=== PATIENT | male | born 1940 | race Caucasian/White ===

== ENCOUNTER 2017-08-16 09:39 | Emergency (ER) | payer MEDICARE, SELFPAY | END 2017-08-16 13:34 | disposition home or self-care (01) | PROVIDERS: Emergency Provider Emergency Medicine; Family Provider Internal Medicine; Visit Provider Emergency Medicine | DX: R10.9 Unspecified abdominal pain (principal); K57.30 Diverticulosis of large intestine without perforation or abscess without bleeding; Z87.442 Personal history of urinary calculi; Z86.73 Personal history of transient ischemic attack (TIA), and cerebral infarction without residual deficits; Z79.02 Long term (current) use of antithrombotics/antiplatelets; Z79.82 Long term (current) use of aspirin; Z79.899 Other long term (current) drug therapy; R10.31 Right lower quadrant pain | CPT/HCPCS: 74176; 80053; 81001; 83690; 85025; 87086; 87088; 87186; 96365; 96375; 99283; J2405 ==

== ENCOUNTER → 2017-10-02 08:55 | Outpatient (CLI) | payer MEDICARE, SELFPAY ==
[2017-10-02 10:14] LABS: Potassium 5.1 mmoL/L (3.5-5.1)
[2017-10-02 15:24] LABS: Anion Gap 13.2 mEq/L (5-15); Blood Urea Nitrogen 26 mg/dL (7-18); Carbon Dioxide 26 mmol/L (21.0-32.0); Chloride 109 mmol/L (98-107); Creatinine,Serum 1.39 mg/dL (0.70-1.30); Estimated Glomerular Filt Rate 50 ml/min (>60); GFR (African American) 60 ML/MIN (>60); Glucose 124 mg/dL (74-106); Potassium 5.2 mmoL/L (3.5-5.1); Sodium 143 mmol/L (136-145)
== END ==
PROVIDERS: PCP Family Medicine; Visit Provider Family Medicine
DX: E87.5 Hyperkalemia (principal); N28.9 Disorder of kidney and ureter, unspecified
CPT/HCPCS: 36415; 80048; 84132

== ENCOUNTER → 2017-10-06 12:14 | Outpatient (CLI) | payer MEDICARE, SELFPAY ==
--- NOTE | 2017-10-06 13:20 | CT_ITS ---
CT chest w con HISTORY: Shortness of air, fatigue, abnormal chest x-ray ITS.REASON: LUNG MASS SEEN ON CXR SOA, FATIGUE ORDERING PHYSICIAN: Joe Shaffer MD PATIENT AGE: 77 years TECHNIQUE: Axial images obtained following the administration of 75 mL of Isovue 370 . Sagittal, and coronal reformatted images are also generated and reviewed. COMPARISON: 04/04/2017 FINDINGS: No mediastinal or hilar mass. No adenopathy. No evidence of proximal pulmonary embolus. There is mild ectasia of the distal aspect of the aortic arch at 3.5 cm. No dissection evident. Normal heart size. No evidence of pericardial effusion. There is slight increased density involving the superior segment of the right lower lobe possibly related to postinflammatory fibrotic change with some atelectasis or fibrosis. May be in the etiology of the radiographic abnormality on the previous x-ray of 04/04/2017. 3 mm noncalcified nodule left upper lobe posteriorly nonspecific too small to categorize. No effusions or infiltrates. Upper abdominal images show diverticulosis of the hepatic flexure and transverse colon as well as splenic flexure. No acute bony anomalies. IMPRESSION: 1. Nonspecific peripheral parenchymal opacity is present in the superior segment of the right lower lobe and may be due to some postinflammatory fibrotic change. Consider 6 month follow-up to confirm resolution or stability. This may be sequela from the previously noted chest x-ray abnormality 2. No hilar or mediastinal mass or adenopathy.
--- NOTE | 2017-10-06 13:37 | HMH.ITSHM ---
PLAVIX,ZESTRIL,FLOMAX,PEPCID,ASPIRIN
== END ==
PROVIDERS: Family Provider Internal Medicine; PCP Family Medicine; Visit Provider Family Medicine
DX: R91.8 Other nonspecific abnormal finding of lung field (principal); R22.2 Localized swelling, mass and lump, trunk
CPT/HCPCS: 71260; Q9967

== ENCOUNTER → 2018-01-14 17:55 | Outpatient (REF) | payer MEDICARE, SELFPAY ==
[2018-01-14 18:13] LABS: Reticulocyte % (Auto) 1.3 % (0.9-3.2)
[2018-01-16 08:34] LABS: Iron 30 ug/dL (38-169); UIBC 308 ug/dL (111-343)
[2018-01-16 13:01] LABS: Iron Saturation 9 % (15-55)
[2018-01-16 16:25] LABS: Albumin 3.5 g/dL (2.9-4.4); Alpha-1-Globulin 0.3 g/dL (0.0-0.4); Gamma Globulin 0.7 g/dL (0.4-1.8); Protein, Total 6.4 g/dL (6.0-8.5)
== END ==
LOC: LAB 17:55
PROVIDERS: Visit Provider Internal Medicine
DX: D64.9 Anemia, unspecified (principal)
CPT/HCPCS: 83550; 84165; 85044

== ENCOUNTER → 2018-04-07 10:49 | Outpatient (CLI) | payer MEDICARE, SELFPAY ==
--- NOTE | 2018-04-07 11:01 | XR_ITS ---
XR KUB HISTORY: ITS.REASON: KIDNEY STONES ORDERING PHYSICIAN: Christopher Ann MD PATIENT AGE: 78 years COMPARISON: 08/16/2017 FINDINGS: Mild lumbar scoliosis convex right. Surgical clips in the epigastric region and to the left of the L3 transverse process. No obvious renal or ureteral calculi. Nonspecific nonobstructive bowel gas pattern. IMPRESSION: No acute finding. No renal calculi apparent
== END ==
PROVIDERS: PCP Internal Medicine; Visit Provider Urology
DX: N20.0 Calculus of kidney (principal)
CPT/HCPCS: 74018

== ENCOUNTER → 2018-07-02 13:08 | Outpatient (CLI) | payer MEDICARE, SELFPAY | PROVIDERS: PCP Internal Medicine; Visit Provider Internal Medicine | DX: M54.42 Lumbago with sciatica, left side (principal) ==

== ENCOUNTER → 2018-07-08 14:15 | Outpatient (CLI) | payer MEDICARE, SELFPAY | PROVIDERS: PCP Internal Medicine; Visit Provider Internal Medicine | DX: M54.42 Lumbago with sciatica, left side (principal) ==

== ENCOUNTER → 2018-07-09 10:47 | Outpatient (CLI) | payer MEDICARE, SELFPAY ==
--- NOTE | 2018-07-09 10:49 | MR_ITS ---
MR lumbar spine wo con, MR 3-d myelogram/MRCP HISTORY: LT leg hip pain, left side low back pain, pain when laying flat or sitting. Symptoms X6 weeks. No prior surgery ITS.REASON: LUMBAGO W/ LEFT SCIATICA ORDERING PHYSICIAN: Jamal Byrne PATIENT AGE: 78 years Comparison: X-Ray 07-20-12 TECHNIQUE: Standard multiplanar multiecho sequences are performed without contrast. 3-D MIP and myelographic images are also rendered and reviewed FINDINGS: Study is somewhat limited. 3 attempts were made to perform the exam with motion artifact noted. Best images were submitted. There is severe motion artifact. The spinal cord ends at the L1 level. There is minimal anterolisthesis of T11 on T12 2 mm. L1-L2: Unremarkable. L2-L3: Degenerative disc disease with moderate to severe facet and ligamentum flavum hypertrophy with severe bilateral lateral recess and foraminal narrowing. There is transverse canal stenosis at this level. L3-L4: Degenerative disc disease with facet and ligamentum hypertrophy with bilateral lateral recess and foraminal narrowing. L4-L5: Degenerative disc disease with 5 mm anterolisthesis of L3 with moderate sized bulging disc along with facet and ligamentum flavum hypertrophy with severe bilateral lateral recess and foraminal narrowing along with severe canal stenosis. L5-S1: Degenerative disc disease with bulging disc along with facet and ligamentum flavum hypertrophy with moderate to severe right-sided foraminal narrowing and mild bilateral lateral recess narrowing. IMPRESSION: 1. Study is limited technically due to motion artifact. 2. Multilevel lumbar spondylosis with degenerative disc disease bulging disc, and facet and ligamentum hypertrophy with foraminal lateral recess narrowing. PLEASE SEE ABOVE FOR DETAILED DESCRIPTION AT EACH LEVEL. 3. Moderate-sized bulging disc with 5 millimeters anterolisthesis of L4 with severe bilateral lateral recess, bilateral foraminal narrowing, and severe canal stenosis at L4-L5
== END ==
PROVIDERS: PCP Internal Medicine; Visit Provider Internal Medicine
DX: M54.42 Lumbago with sciatica, left side (principal)
CPT/HCPCS: 72148; 76376

== ENCOUNTER → 2018-10-13 16:50 | Outpatient (CLI) | payer MEDICARE, SELFPAY | PROVIDERS: Visit Provider Urology | DX: N20.0 Calculus of kidney (principal) | CPT/HCPCS: 87086; 87088; 87186 ==

== ENCOUNTER → 2018-10-19 14:56 | Outpatient (CLI) | payer MEDICARE, SELFPAY ==
--- NOTE | 2018-10-19 14:58 | CT_ITS ---
CT abdomen pelvis wo con INDICATION: ITS.REASON: Kidney StonesUrolithiasis. Low pelvic pain ORDERING PHYSICIAN: Christopher Ann MD PATIENT AGE: 78 years COMPARISON: August 2017 TECHNIQUE: No oral nor IV contrast utilized Axial images obtained with sagittal and coronal reformats. All CT scans at the facility use one or more dose reduction, viz: automated exposure control, ma/kV adjustment per patient size (including targeted exams where dose is matched to indication, i.e. head), or iterative reconstruction technique. FINDINGS: Lung bases. No acute findings. Heart normal size. Abdomen/pelvis. Lack of oral and IV contrast decreases sensitivity somewhat. Liver, spleen, pancreas unremarkable on this noncontrast studies . Adrenals unremarkable. . Gallbladder no calcified stones. Sludge, suggestion of possible noncalcified stone. Common duct WNL..No biliary ductal dilatation TRACT Kidneys. No urinary tract calculi nor obstruction . Mild stranding about both kidneys likely reflecting chronic renal changes. Similar to previous study 2017. . On previous 2017 CT, small calculi at the lower pole left kidney were noted.-these no longer evident.No renal calculi in either kidney today.. The left ureter is unremarkable with no calculi. No retroperitoneal adenopathy nor significant pelvic adenopathy. Pelvis. Borderline to mild thickening of the bladder. Prostate is enlarged nearly 6 cm transverse dimension with near similar height height. It slightly indents the base the bladder.. No free fluid at pelvis. I suspect prior mesh graft placed anteriorly aspect lower pelvis which may have related to previous 2014 hernia repair/including inguinal hernia repair.. Correlation required Slight bulging from both right & left inguinal ring but no hernia.. Overall appearance appears unchanged to previous 2016 &,. With no significant recurrent inguinal hernia. Only slight bulging towards inguinal regions... There is a midline suzette from previous midline incision above the umbilicus. GI TRACT Large bowel: moderate stool seen throughout large bowel. Colonic diverticulosis most extensive at the sigmoid colon with scattered diverticuli throughout the left colon and transverse colon. No focal diverticulitis. Moderate stool throughout the right colon. Appendix appears normal. Stomach: Postsurgical changes GE junction and cardia of stomach. Possibly from previous gastric surgery and/or vagotomy. Generous food mildly distended stomach. Duodenal loop satisfactory with upper normal wall thickness. The small bowel normal caliber. Slight wispy appearance of mesentery within normal limits. A few small scattered nodes mesentery. No focal inflammatory changes abdome.. No free fluid no free air Bones.. Dextroscoliosis L-spine. Multilevel Degenerative changes throughout the L-spine Period bilateral facet hypertrophy and arthropathy most evident right L4/5 L5/S1. Previous laminectomy to the left at L3/4 Sclerotic area at the T11 level unchanged. ----IMPRESSION: No acute findings abdomen pelvis. No urinary tract obstruction. No renal calculi currently. (Previous calculi noted on 2017 CT study are no longer evident. No ureteral calculi nor obstruction today). Mild diffuse bladder wall thickening with enlarged prostate--6 cm transverse. Diffuse Colonic diverticulosis. Diverticulosis extensive sigmoid, left colon. No acute diverticulitis evident Suggestion of subtle mesh graft anteriorly at lower pelvis, likely from previous 2015 hernia repair
== END ==
PROVIDERS: PCP Internal Medicine; Visit Provider Urology
DX: N20.0 Calculus of kidney (principal)
CPT/HCPCS: 74176

== ENCOUNTER 2019-04-23 10:00 | Outpatient (RCR) | payer MEDICARE, SELFPAY ==
--- NOTE | 2019-04-14 11:35 | HMH.OTOPEV ---
OT Inpatient Evaluation Rehab OT Outpatient Eval Start: 04/14/19 11:25 Freq: Status: Active Protocol: Document 04/14/19 11:25 [facility] (Rec: 04/14/19 11:35 [id number] Electronically Signed By Yrn Baxter OT 04/14/19 11:25 Outpatient Therapy Subjective History Subjective History Pt seen this date for skilled OT initial evaluation to Right shoulder. Pt reports he has had problems with his shoulder for years, but ~3 weeks ago he fell on the shoulder. Since his fall, the pain has increased and his motion/ strength has declined. Pt does demonstrate with significant weakness in the shoulder along with decreased AROM. Pt will continue to be seen twice a week in order to address deficits. Chief Complaint Pain,Stiff,Weakness Symptom Type Ache,Throb,Sharp,Dull,Shooting Symptoms Relieved By Rest/Positioning Symptoms Aggravated By Physical Activity,Twisting, Lifting Prior Functional Limitations None Current Functional Limitations Reaching,Lifting,Housework, Dressing,Desk Work/Reading, Driving,Sleeping,Recreation Activity Symptom Description Constant but Variable Level of pain today (0-10) 5 Pain scale - at its best (0-10) 2 Pain scale - at its worst (0-10) 9 Shoulder/Elbow Eval Shoulder Objective Measurements Shoulder ROM Right Shoulder ROM Limitations Pain Shoulder Abduction Active Range of 70 degrees Motion (degrees) Shoulder Flexion Active Range of Motion 120 degrees (degrees) Query Text: Shoulder External Rotation Active Range 50 degrees of Motion (degrees) Shoulder Internal Rotation Active Range 60 degrees of Motion (degrees) pain with active ROM shoulder exam right standard pain with passive ROM shoulder exam right standard decreased ROM shoulder exam standard right Shoulder MMT Shoulder Abduction Strength Grade 2 Poor Shoulder Extension Strength Grade 2 Poor Shoulder Flexion Strength Grade 2 Poor Shoulder External Rotation Strength 2 Poor Grade Shoulder Internal Rotation Strength 2 Poor Grade Shoulder Strength Patient Testing Sitting Position
== END 2019-04-23 10:05 | disposition home or self-care (01) ==
LOC: OT 10:00
PROVIDERS: PCP Internal Medicine; Visit Provider Orthopaedic Surgery
DX: M25.511 Pain in right shoulder (principal)
CPT/HCPCS: 97014; 97110; 97165; G0283

== ENCOUNTER → 2019-04-26 10:23 | Outpatient (POV) | payer MEDICARE, SELFPAY | PROVIDERS: Visit Provider Specialist | DX: R20.0 Anesthesia of skin (principal) | CPT/HCPCS: 95886; 95908 ==

== ENCOUNTER → 2019-05-11 08:39 | Outpatient (CLI) | payer MEDICARE, SELFPAY ==
--- NOTE | 2019-05-11 09:01 | ECG_ITS ---
APPROVED REPORT Exam: Resting ECG HR:66 bpm ECG Measurements Heart Rate [address] 182 P 67 QRSd 80 QRS 37 QT 372 T 58 QTc 389 <Conclusion> Normal sinus rhythm Normal ECG Electronically signed by : Anup Maldonado, 05/11/2019 19:58:06
[2019-05-11 09:10] LABS: Basophils % 0.4 % (0.1-2.0); Eosinophils # 0.1 K/mm3 (0.0-0.4); Eosinophils % 1.2 % (0.1-12.0); Hematocrit 38.8 % (42.0-52.0); Hemoglobin 12.5 g/dL (14.1-18.0); Lymphocytes # 0.9 K/mm3 (0.7-4.5); Lymphocytes % 13.4 % (10-50); Mean Corpuscular HGB Conc 32.1 g/dL (31.8-35.4); Mean Corpuscular Hemoglobin 29.9 pg (27.0-31.2); Mean Platelet Volume 6.7 fl (7.4-10.4); Monocytes # 0.4 K/mm3 (0.1-1.0); Monocytes % 5.9 % (1.7-9.3); Neutrophils # 5.4 K/mm3 (1.8-7.8); Neutrophils % 79.2 % (37.0-80.0); Platelet Count 310 K/mm3 (142-424); Red Blood Count 4.17 M/mm3 (4.60-6.20); Red Cell Distribution Width 15.1 % (11.5-17.5); White Blood Count 6.8 K/mm3 (4.8-10.8)
[2019-05-11 09:15] LABS: INR 0.97 (0.9-1.1); Prothrombin Time 10.1 seconds (9.4-11.8)
[2019-05-11 10:29] LABS: Alanine Aminotransferase 23 U/L (12-78); Albumin Level 3.9 gm/dL (3.4-5.0); Albumin/Globulin Ratio 1.4 (1.1-1.8); Alkaline Phosphatase 126 U/L (46-116); Anion Gap 14.6 mEq/L (5-15); Aspartate Amino Transferase 17 U/L (15-37); Bilirubin,Total 0.5 mg/dL (0.2-1.0); Blood Urea Nitrogen 21 mg/dL (7-18); Calcium 8.7 mg/dL (8.5-10.1); Carbon Dioxide 24 mmol/L (21.0-32.0); Chloride 108 mmol/L (98-107); Creatinine,Serum 1.72 mg/dL (0.70-1.30); Estimated Glomerular Filt Rate 39 ml/min (>60); GFR (African American) 47 ML/MIN (>60); Globulin 2.7 gm/dl (1.3-3.2); Glucose 132 mg/dL (74-106); Potassium 4.6 mmoL/L (3.5-5.1); Sodium 142 mmol/L (136-145); Total Protein,Serum 6.6 gm/dL (6.4-8.2)
== END ==
PROVIDERS: Visit Provider Orthopaedic Surgery
DX: M79.609 Pain in unspecified limb (principal); R10.9 Unspecified abdominal pain; R20.2 Paresthesia of skin; Z01.818 Encounter for other preprocedural examination
CPT/HCPCS: 36415; 80053; 85025; 85610; 93005

== ENCOUNTER → 2019-06-24 10:03 | Outpatient (CLI) | payer MEDICARE, SELFPAY ==
--- NOTE | 2019-06-24 10:05 | CT_ITS ---
PROCEDURE: CT ABDOMEN PELVIS WO CON CLINICAL INDICATION: RLQ PAIN RADIATING TO GROIN Right lower quadrant pain COMPARISON: ABDPELWO CT abdomen pelvis wo con from 10/19/2018 TECHNIQUE: Axial images obtained with sagittal and coronal reformats. All CT scans at the facility use one or more dose reduction, viz: automated exposure control, ma/kV adjustment per patient size (including targeted exams where dose is matched to indication, i.e. head), or iterative reconstruction technique. FINDINGS: Lower thorax: No acute finding ABDOMEN & PELVIS: Oral contrast was given but IV contrast was not utilized. The liver, spleen, adrenal glands, gallbladder, and kidneys have an unremarkable appearance. No renal or ureteral calculi. There are postsurgical changes of the anterior abdominal wall. There is andrade diverticulosis. No evidence of diverticulitis. The cecum is anteflexed anteriorly with the appendix residing in the right upper quadrant medial to the gallbladder. No evidence of appendicitis. No intestinal obstruction or free air. The prostate is enlarged at 6 by 4.5 cm. Unremarkable appearing urinary bladder. Degenerative changes are present in the lumbar spine with mild dextroscoliosis. Bones: No acute bony findings. IMPRESSION: 1. Andrade diverticulosis of the colon. No evidence of diverticulitis. 2. Enlarged prostate 3. No acute abdominal or pelvic findings. No evidence of appendicitis. Dictated by: Joshua Rubi MD 06/25/2019 17:15 Electronically signed by Joshua Rubi MD in [place] 06/25/2019 17:15
== END ==
PROVIDERS: PCP Internal Medicine; Visit Provider Internal Medicine
DX: R10.31 Right lower quadrant pain (principal)
CPT/HCPCS: 74176

== ENCOUNTER → 2019-08-03 15:03 | Outpatient (CLI) | payer MEDICARE, SELFPAY ==
[2019-08-05 11:18] LABS: PSA, Free 3.15 ng/mL; Prostate Specific Ag 12.2 ng/mL (0.0-4.0)
== END ==
PROVIDERS: Visit Provider Urology
DX: R97.20 Elevated prostate specific antigen [PSA]
CPT/HCPCS: 36415; 84153; 84154

== ENCOUNTER → 2019-10-25 14:57 | Outpatient (CLI) | payer MEDICARE, SELFPAY ==
[2019-10-28 06:38] LABS: PSA, Free 1.92 ng/mL; Prostate Specific Ag 7.4 ng/mL (0.0-4.0)
== END ==
PROVIDERS: Visit Provider Urology
DX: R97.20 Elevated prostate specific antigen [PSA] (principal)
CPT/HCPCS: 36415; 84153; 84154

== ENCOUNTER → 2020-01-01 09:38 | Outpatient (CLI) | payer MEDICARE, SELFPAY ==
[2020-01-01 11:10] LABS: Blood Urea Nitrogen 33 mg/dl (9-20); Estimated Glomerular Filt Rate 28 ml/min (>60); GFR (African American) 33 ML/MIN (>60)
== END ==
PROVIDERS: Visit Provider Surgery
DX: R10.31 Right lower quadrant pain (principal)
CPT/HCPCS: 36415; 82565; 84520

== ENCOUNTER → 2020-01-05 09:07 | Outpatient (CLI) | payer MEDICARE, SELFPAY ==
--- NOTE | 2020-01-05 09:13 | CT_ITS ---
PROCEDURE: CT ABDOMEN PELVIS WO CON CLINICAL INDICATION: prevous hernia sx 2015, rt groin pain Right groin pain COMPARISON: CT ABDOMEN PELVIS WO CON from 06/24/2019 TECHNIQUE: Axial images obtained with sagittal and coronal reformats. All CT scans at the facility use one or more dose reduction, viz: automated exposure control, ma/kV adjustment per patient size (including targeted exams where dose is matched to indication, i.e. head), or iterative reconstruction technique. FINDINGS: LOWER THORAX: No acute finding ABDOMEN & PELVIS: The liver, gallbladder, spleen, adrenal glands, and pancreas have an unremarkable unenhanced appearance. There are multiple small metallic densities at the GE junction area. No renal or ureteral calculi. No hydronephrosis. There is nonspecific stranding of the perinephric renal fat. No intestinal obstruction or free air. No evidence of appendicitis. There is colonic diverticulosis without diverticulitis. The prostate is enlarged at 5 cm. There is mild concentric thickening of the urinary bladder wall. Postsurgical changes are present in the pelvis with thin linear density along the lower anterior abdominal wall and may be due to previously inserted mesh. Please correlate with surgical history. No evidence of recurrence hernia. No significant change from 06/24/2019. There are degenerative changes in the lumbar spine with dextroscoliosis and mild degenerative changes of the right SI joint. IMPRESSION: 1. No acute abdominal or pelvic findings. 2. Prior abdominal wall surgery. No evidence recurrence inguinal hernia. 3. Enlarged prostate with mild concentric thickening of the urinary bladder wall which could be due to nondistention and or cystitis. Dictated by: Joshua Rubi MD 01/06/2020 08:41 Electronically signed by Joshua Rubi MD in [place] 01/06/2020 08:41
== END ==
PROVIDERS: PCP Internal Medicine; Visit Provider Surgery
DX: R10.31 Right lower quadrant pain (principal)
CPT/HCPCS: 74176

== ENCOUNTER → 2020-01-27 11:10 | Outpatient (POV) | payer MEDICARE, SELFPAY ==
[2020-01-27 11:31] VITALS: BP 135/85; PULSE 80; RESP 18; TEMP 36.9; O2SAT 99; BMI 21.2
--- NOTE | 2020-01-27 12:30 | HMH.PMCON ---
Assessment and Plan (1) Right groin pain Current visit: Yes Status: Chronic Category: Medical Code(s): R10.31 - Right lower quadrant pain (2) Left groin pain Current visit: Yes Status: Chronic Category: Medical Code(s): R10.32 - Left lower quadrant pain - Assessment and plan all Dx Assessment and Plan for all problems:: The patient I did have a discussion concerning his pain. We will schedule him for a right ilioinguinal nerve block. Given his symptoms, I think the patient would benefit from the procedure. Patient also discussed possible sprint procedure. I do think that if he gets relief from his ilioinguinal nerve block he would be a candidate for the spring therapy. The patient and I did discuss the procedure in detail today. He is on Plavix anticoagulation therapy. We will schedule him for the nerve block to the right side and see him back after his injection to reassess his symptoms. The patient and I specifically discussed risk factors for COVID19. These risks include, but are not limited to age greater than 60, heart or lung disease, diabetes, immunosuppression, and travel. We also discussed NSAIDs may worsen COVID19 infection or symptoms. Patient should not use NSAIDs to treat COVID19 signs or symptoms. Patient was also informed that any type of corticosteroid of any form (oral or injection) will decrease the patient's immune system response and may increase the likelihood of COVID19 infection and symptoms. Given the risks and benefits of the injection, he would like to proceed. Has been instructed to contact clinic if he has any concerns before his next appointment. Dr. Adamson has reviewed this note and agrees with this plan of care. This note was dictated using voice recognition software and make contain errors or omissions. HPI - Data of Consult Patient: new to practice Consult date: 01/27/20 Requesting Physician: Felicia Noel APRN Primary Care Provider: Jamal Byrne - Consult Narrative Reason for consult: Right groin pain History of present illness: Mr. Roque is a 79 year old male who presents today for consultation for right groin pain. Patient reports that he underwent bilateral hernia surgeries and 2016. He says following the surgeries he developed severe right groin pain. Patient says that he has been able to perform daily activities such as walking and standing without developing severe pain. He says the pain does not radiate into his legs. He also says that he has occasional left groin pain as well. He does report his right groin to be worse in pain. He does rate his pain an 8 out of 10 today. Patient says the pain is so severe that he gets nauseous and is having difficulty eating throughout the day. Patient has tried oral medications in the past and says he does not like taking oral opiates. Patient would like to discuss possible injective therapy. Patient is on Plavix anticoagulation therapy. CC: Felicia Noel APRN [facility] History I have reviewed the patient's past medical history: Yes Medical History: Reports:: Hyperlipidemia, Hypertension, Internal Pacemaker, Peripheral Vascular Disease, Seizures Denies:: Cancer, Diabetes Mellitus Type 1, Diabetes Mellitus Type 2, MRSA *Have you ever received a pneumonia vaccine?: Yes *Have you received a flu vaccine this season?: Yes Other Medical History: Reports: Arthritis, Blood Transfusion Reaction Laterality Cases: Right: Carpal Tunnel Release, Bilateral: Other Other Surgeries: Yes: Colonoscopy, EGD, Hernia Repair, Pacemaker Amputation: No Fractures: No - *Social History Smoking Status: Never smoker Alcohol Intake: never Alcohol Intake Frequency:: other Substance Use Type: denies use *Occupational Status:: other Housing: house Household Members: other *Travel in the last 8 weeks: None Family Hx:: Unable to obtain Review of Systems - Review of Systems Review of Systems General: No recent weight changes, no fever, no sl
== END ==
PROVIDERS: PCP Internal Medicine; Visit Provider Clinical Nurse Specialist Family Health
DX: R10.31 Right lower quadrant pain (principal); R10.32 Left lower quadrant pain
CPT/HCPCS: 99202

== ENCOUNTER 2020-02-04 09:01 | Day surgery (SDC) | payer MEDICARE, SELFPAY ==
[2020-02-04 09:05] VITALS: BP 148/76; PULSE 72; RESP 18; O2SAT 99; BMI 21.2
[2020-02-04 09:20] VITALS: BP 125/85; PULSE 85; RESP 18
[2020-02-04 09:21] VITALS: BP 132/85; PULSE 85; RESP 18; O2SAT 99
--- NOTE | 2020-02-04 09:28 | HMH.PMPROC ---
- Procedure Date: 02/04/20 Time: 09:28 Anesthesiologist:: Rambo Adamson MD Complications:: None Pre-procedure Diagnosis:: Right groin pain status post hernia repair with inguinal neuralgia Post-procedure Diagnosis:: Same Indications for Procedure:: This patient is a pleasant 79-year-old white male who had hernia surgery a couple years ago. This was done by Dr. Yun. He subsequently approximately 6 months later developed groin pain. This pain does radiate into the right testicle. He has seen Dr. Yun since who did not see any further surgical intervention. 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 We will do a right ilioinguinal/iliohypogastric nerve block today to help him with his pain symptoms. Procedure Details:: Ilioinguinal/iliohypogastric nerve block Informed consent was obtained the risk and benefits of the procedure were explained to the patient. Patient was taken to the procedure room. The right groin was prepped using ChloraPrep. A 25-gauge needle was used and we injected approximately 10 mL bupivacaine 0.25% Depo-Medrol 40 mg into the area of the right ilioinguinal/iliohypogastric and genitofemoral nerves. Patient tolerated the procedure well with no complications. We did put some pressureover the groin as we did get some blood return upon the first needle stick. Plan and Disposition:: We will follow-up with him in 1 to 2 weeks. Will reevaluate his symptoms and plan on repeat injection if needed.
[2020-02-04 09:40] VITALS: BP 139/69; PULSE 60; RESP 20; O2SAT 99
== END 2020-02-04 09:40 | disposition home or self-care (01) ==
LOC: SC.PAINP 09:02
PROVIDERS: PCP Internal Medicine; Visit Provider Anesthesiology
DX: G58.8 Other specified mononeuropathies; G89.18 Other acute postprocedural pain; R10.30 Lower abdominal pain, unspecified; I10 Essential (primary) hypertension; E78.5 Hyperlipidemia, unspecified; Z95.0 Presence of cardiac pacemaker; I73.9 Peripheral vascular disease, unspecified; M19.90 Unspecified osteoarthritis, unspecified site; Z79.82 Long term (current) use of aspirin; Z79.899 Other long term (current) drug therapy
CPT/HCPCS: 64425; J1040

== ENCOUNTER → 2020-02-07 09:59 | Outpatient (POV) | payer MEDICARE, SELFPAY ==
[2020-02-07 10:26] VITALS: BP 143/85; PULSE 69; RESP 18; TEMP 36.8; O2SAT 99; BMI 21.2
--- NOTE | 2020-02-07 10:40 | P.CONS_ITS ---
[facility] Pain Management SOAP Note Subjective:: Patient is a pleasant 79-year-old white male who presents today for follow-up after ilioinguinal/iliohypogastric nerve block. Patient had 100% relief of symptomology for several hours. Patient rates his pain a 7 out of 10. He did have numbness in his right leg post procedure. Patient would like to move forward with a sprint peripheral nerve stimulator. Patient has had pain for a year almost a year after his hernia repair. This pain radiates into his right testicle. He is not a candidate for any further surgical interventional. 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 ROS General: no recent weight change, no fever, no sleep disturbances Respiratory: no cough, no shortness of air, no recurring pulmonary infections Cardiovascular/Peripheral Vascular: No chest pain, No palpitations, no edema, no shortness of breath. Gastrointestinal: no new onset incontinence, normal bowel movements reported Genitourinary: no new onset incontinence Musculoskeletal: Groin pain on the right side Psychiatric: normal mood/ affect, Neurological: [denies new onset weakness in extremities], [denies new onset balance issues] Objective:: Physical Exam General: Alert and oriented x3, no acute distress, pleasant and cooperative, [on room air] Lungs: Resps E/U, Symmetrical chest expansion, Eyes: PERRL Musculoskeletal: Flexion and extension of lumbar spine somewhat guarded secondary to pain, deep tendon reflexes normal, strength in upper and lower extremities [5/5], slightly antalgic gait noted Neurological: speech clear, mineral mixer equal, no gross sensory deficits Assessment:: Right groin pain status post hernia repair and inguinal neuralgia Plan:: Patient did well with his nerve block he did have all of his pain return post. Patient did have some significant numbness in his right leg post block. This all resolved within 4 hours. Patient and I discussed a sprint stimulator he would like to move forward with this. Dr. Adamson has reviewed this note and agrees with this plan of care. This note was dictated using voice recognition software and may contain errors or omissions [facility] History I have reviewed the patient's past medical history: Yes Medical History: Reports:: Hyperlipidemia, Hypertension, Internal Pacemaker, Peripheral Vascular Disease Denies:: Cancer, Diabetes Mellitus Type 1, Diabetes Mellitus Type 2, MRSA, Seizures *Have you ever received a pneumonia vaccine?: Yes *Have you received a flu vaccine this season?: Yes Other Medical History: Reports: Arthritis, Blood Transfusion Reaction Laterality Cases: Right: Carpal Tunnel Release, Bilateral: Other Other Surgeries: Yes: Colonoscopy, EGD, Hernia Repair, Pacemaker Amputation: No Fractures: No - *Social History Smoking Status: Never smoker Alcohol Intake: never Alcohol Intake Frequency:: other Substance Use Type: denies use *Occupational Status:: other Housing: house Household Members: other *Travel in the last 8 weeks: None Family Hx:: Unable to obtain
== END ==
PROVIDERS: PCP Internal Medicine; Visit Provider Clinical Nurse Specialist Family Health
DX: Z09 Encounter for follow-up examination after completed treatment for conditions other than malignant neoplasm (principal); G89.18 Other acute postprocedural pain; R10.30 Lower abdominal pain, unspecified
CPT/HCPCS: 99212

== ENCOUNTER 2020-02-11 12:48 | Day surgery (SDC) | payer MEDICARE, SELFPAY ==
[2020-02-11 13:11] VITALS: BP 145/85; PULSE 65; RESP 18; TEMP 36.8; O2SAT 96; BMI 21.2
[2020-02-11 13:46] VITALS: BP 140/78; PULSE 79; RESP 18; O2SAT 99
[2020-02-11 13:47] VITALS: BP 132/85; PULSE 88; RESP 18; O2SAT 99
--- NOTE | 2020-02-11 13:55 | HMH.PMPROC ---
- Procedure Date: 02/11/20 Time: 13:55 Anesthesiologist:: Rambo Adamson MD Complications:: None Pre-procedure Diagnosis:: Right groin pain with ilioinguinal/iliohypogastric neuralgia Post-procedure Diagnosis:: Same Indications for Procedure:: Patient is a pleasant 79-year-old white male who we have been treating for right groin pain with ilioinguinal/iliohypogastric neuralgia. He got 100% relief of his pain symptoms while he was numb then his pain did come back. His right leg also got numb at the time. We will do a repeat ilioinguinal/iliohypogastric nerve block today with less local anesthetic. We will do this under ultrasound guidance. Procedure Details:: Right ilioinguinal/iliohypogastric nerve block Informed consent was obtained risk and benefits of the procedure were explained to the patient. Patient was taken to the procedure room. The right groin was prepped using ChloraPrep. Under ultrasound guidance a 25-gauge needle was inserted and advanced into the area of the right ilioinguinal/epigastric nerve. We deposited back 5 mL's bupivacaine 0.25% Depo-Medrol 40 mg into the area of the right ilioinguinal/medial hypogastric nerve. Patient tolerated the procedure well with no complications. Plan and Disposition:: We will follow-up with this patient in 1 to 2 weeks. Again if he does get 80 to 100% relief of his pain symptoms from the local anesthetic he is a candidate for Sprint peripheral nerve stimulation of the right ilioinguinal/iliohypogastric nerve. Seek approval for PCS Sprint stimulation of right ilioinguinal/iliohypogastric nerve.
[2020-02-11 14:05] VITALS: BP 154/70; PULSE 61; RESP 18; O2SAT 96
== END 2020-02-11 14:05 | disposition home or self-care (01) ==
LOC: SC.PAINP 12:49
PROVIDERS: PCP Internal Medicine; Visit Provider Anesthesiology
DX: Z87.39 Personal history of other diseases of the musculoskeletal system and connective tissue (principal); I10 Essential (primary) hypertension; Z86.73 Personal history of transient ischemic attack (TIA), and cerebral infarction without residual deficits; Z87.442 Personal history of urinary calculi; Z79.899 Other long term (current) drug therapy; Z79.82 Long term (current) use of aspirin; G57.80 Other specified mononeuropathies of unspecified lower limb
CPT/HCPCS: 64425; J1030

== ENCOUNTER → 2020-03-02 08:48 | Outpatient (POV) | payer MEDICARE, SELFPAY ==
[2020-03-02 09:03] VITALS: BP 158/80; PULSE 74; RESP 18; TEMP 36.8; O2SAT 98; BMI 21.2
--- NOTE | 2020-03-02 09:44 | HMH.PAINSOAP ---
[facility] Pain Management SOAP Note Subjective:: Patient is a pleasant 79-year-old white male who presents today for follow-up. He is being treated for right groin pain. He did undergo an ilioinguinal nerve block for which he did get 100% relief for short time. He did undergo the injections twice. He would like to proceed with possible sprint therapy. Patient did discuss the procedure in detail at his initial visit. Patient had hoped to undergo the sprint procedure immediately after his initial visit, however, he did undergo the nerve blocks prior. He did get right leg numbness following his injection and did report to have fallen after his previous inguinal nerve block. He does rate his pain a 9 out of 10 today. Review of Systems General: No recent weight changes, no fever, no sleep disturbances Respiratory: No cough, no shortness of air, no recurring pulmonary infections Cardiovascular/peripheral vascular: No chest pain, no palpitations, no edema, no shortness of breath Gastrointestinal: No new onset incontinence, normal bowel movements reported Genitourinary: No new onset incontinence Musculoskeletal: Right groin pain Psychiatric: Normal mood/affect Neurological: [Denies weakness in extremities], [denies balance issues] Objective:: Physical exam General: Alert and oriented x3, no acute distress, pleasant and cooperative, [on room air] Lungs: Respirations even and unlabored, symmetrical chest expansion Eyes: PERRL Musculoskeletal: Flexion and extension of lumbar spine somewhat guarded secondary to pain, deep tendon reflexes normal, strength in upper and lower extremities [5/5], [abnormal gait noted] Neurological: Speech clear, energy operations vice president equal, no gross sensory deficit Assessment:: 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 The patient is not on any anticoagulation therapy. The procedure was discussed in detail with the patient and his . They are in agreement they would like to proceed. We will see him back after the procedure to reassess his symptoms. He has been instructed to contact clinic if he has any concerns before his next appointment. The patient and I specifically discussed risk factors for COVID19. These risks include, but are not limited to age greater than 60, heart or lung disease, diabetes, immunosuppression, and travel. We also discussed NSAIDs may worsen COVID19 infection or symptoms. Patient should not use NSAIDs to treat COVID19 signs or symptoms. Patient was also informed that any type of corticosteroid of any form (oral or injection) will decrease the patient's immune system response and may increase the likelihood of COVID19 infection [address] symptoms[address]. Adamson has reviewed this note and agrees with this plan of care. This note was dictated using voice recognition software and make contain errors or omissions. [facility] History I have reviewed the patient's past medical history: Yes Medical History: Reports:: Hyperlipidemia, Hypertension, Internal Pacemaker, Peripheral Vascular Disease Denies:: Cancer, Diabetes Mellitus Type 1, Diabetes Mellitus Type 2, MRSA, Seizures *Have you ever received a pneumonia vaccine?: Yes *Have you received a flu vaccine this season?: Yes Other Medical History: Reports: Arthritis, Blood Transfusion Reaction Laterality Cases: Right: Carpal Tunnel Release, Bilateral: Other Other Surgeries: Yes: Colonoscopy, EGD, Hernia Repair, Pacemaker Amputation: No Fractures: No - *Social History Smoking Status: Never smoker Alcohol Intake: never Alcohol Intake Frequency:: other Substance Use Type: denies use *Occupational Status:: other Housing: house Household Members: other *Travel in the last 8 weeks: None Family Hx:: Unable to obtain
== END ==
PROVIDERS: PCP Internal Medicine; Visit Provider Clinical Nurse Specialist Family Health
DX: R10.30 Lower abdominal pain, unspecified (principal); G58.8 Other specified mononeuropathies
CPT/HCPCS: 99212

== ENCOUNTER → 2020-04-24 13:27 | Outpatient (CLI) | payer MEDICARE, SELFPAY ==
[2020-04-26 12:11] LABS: PSA, Free 3.55 ng/mL
== END ==
PROVIDERS: Visit Provider Urology
DX: R97.20 Elevated prostate specific antigen [PSA] (principal)
CPT/HCPCS: 36415; 84153; 84154

== ENCOUNTER 2020-04-28 09:45 | Day surgery (SDC) | payer MEDICARE, SELFPAY ==
[2020-04-28 09:52] VITALS: BP 167/84; PULSE 69; RESP 18; TEMP 36.6; O2SAT 99; BMI 20.9
[2020-04-28 10:59] VITALS: BP 157/74; PULSE 56; RESP 18; O2SAT 98
[2020-04-28 11:00] VITALS: BP 157/74; PULSE 62; RESP 18; O2SAT 99
[2020-04-28 11:30] VITALS: BP 164/71; PULSE 59; RESP 18; O2SAT 99
--- NOTE | 2020-04-28 11:35 | P.PCN_ITS ---
- Procedure Date: 04/28/20 Time: 11:35 Anesthesiologist:: Rambo Adamson MD Complications:: None Pre-procedure Diagnosis:: Right groin pain with inguinal neuralgia, ilioinguinal/iliohypogastric/genitofemoral neuralgia Post-procedure Diagnosis:: Same Indications for Procedure:: Patient is a pleasant 79-year-old white male who we have been treating for right groin pain. He does have inguinal neuralgia with radiation of pain into the right testicle. We will do peripheral nerve stimulation of the right ilioinguinal/iliohypogastric and genitofemoral nerve today. He is gotten 100% relief with 2 previous diagnostic blocks. Procedure Details:: Right ilioinguinal/ileal hypo-gastric/genitofemoral nerve stimulation Form consent was obtained and the risk and benefits of the procedure were explained to the patient. Patient was taken to the procedure room. The right groin was prepped using ChloraPrep. The skin and subcutaneous tissues were anesthetized with lidocaine. Under ultrasound guidance needle was placed into the area of the right ilioinguinal/iliohypogastric/genitofemoral nerves. We underwent stimulation there was good stimulation in all areas of pain radiating into the right testicle. Lead was placed. We tested the lead again there was good stimulation in all areas of pain including radiation of stimulation into the right testicle. The lead was secured in place and programmed by the outbound sales representative. Patient had good relief of his pain symptoms. He was discharged home neurologically intact with good relief of pain. Plan and Disposition:: We will follow-up with him in 2 weeks. Will reevaluate symptoms at that time. Again this is a 60-day period of stimulation.
== END 2020-04-28 11:30 | disposition home or self-care (01) ==
PROVIDERS: PCP Internal Medicine; Visit Provider Anesthesiology
DX: G57.81 Other specified mononeuropathies of right lower limb (principal); G58.8 Other specified mononeuropathies; I10 Essential (primary) hypertension; I25.10 Atherosclerotic heart disease of native coronary artery without angina pectoris; G45.9 Transient cerebral ischemic attack, unspecified; Z87.442 Personal history of urinary calculi; Z86.73 Personal history of transient ischemic attack (TIA), and cerebral infarction without residual deficits; Z87.39 Personal history of other diseases of the musculoskeletal system and connective tissue; Z79.82 Long term (current) use of aspirin; Z79.899 Other long term (current) drug therapy
CPT/HCPCS: 64555; C1778

== ENCOUNTER → 2020-05-04 15:05 | Outpatient (POV) | payer MEDICARE, SELFPAY ==
[2020-05-04 15:16] VITALS: BP 135/75; PULSE 70; RESP 18; TEMP 36.6; O2SAT 98; BMI 23.5
--- NOTE | 2020-05-04 15:26 | HMH.PAINSOAP ---
[facility] Pain Management SOAP Note Subjective:: Patient is a very pleasant 80-year-old white male who presents today for follow-up. Patient is currently undergoing SCS therapy. Patient had chronic right groin pain following a hernia surgery. He has inguinal neuralgia with radiation of pain into his right testicle. He did have ilioinguinal nerve blocks diagnostically for which he did get 100% relief for a couple weeks, however, his pain returned. Patient says since undergoing the SCS therapy, he is finally starting to sleep better. He says the pain is still there, however, it is improving. He does rate his pain a 5 out of 10 today. He says that he has his settings at 95 in the day and 90 at night. He is hopeful that it will continue to improve his pain and he will get long-term relief. Review of Systems General: No recent weight changes, no fever, no sleep disturbances Respiratory: No cough, no shortness of air, no recurring pulmonary infections Cardiovascular/peripheral vascular: No chest pain, no palpitations, no edema, no shortness of breath Gastrointestinal: No new onset incontinence, normal bowel movements reported Genitourinary: No new onset incontinence Musculoskeletal: Remittent right groin pain, intermittent right testicle pain Psychiatric: Normal mood/affect Neurological: [Denies weakness in extremities], [denies balance issues] Objective:: Physical exam General: Alert and oriented x3, no acute distress, pleasant and cooperative, [on room air] Lungs: Respirations even and unlabored, symmetrical chest expansion Eyes: PERRL Musculoskeletal: Flexion and extension of lumbar spine somewhat guarded secondary to pain, deep tendon reflexes normal, strength in upper and lower extremities [5/5], [abnormal gait noted] Neurological: Speech clear, solar power installer equal, no gross sensory deficit Assessment:: Right groin pain with inguinal neuralgia, ilioinguinal iliohypogastric genitofemoral neuralgia Plan:: Overall the patient is doing well since having the SCS system initiated. We will plan to see him back in 2 weeks to reassess his symptoms. He has been instructed to contact clinic if he has any concerns before his next appointment. The patient and I specifically discussed risk factors for COVID19. These risks include, but are not limited to age greater than 60, heart or lung disease, diabetes, immunosuppression, and travel. We also discussed NSAIDs may worsen COVID19 infection or symptoms. Patient should not use NSAIDs to treat COVID19 signs or symptoms. Patient was also informed that any type of corticosteroid of any form (oral or injection) will decrease the patient's immune system response and may increase the likelihood of COVID19 infection [address] symptoms[address] Adamson has reviewed this note and agrees with this plan of care. This note was dictated using voice recognition software and make contain errors or omissions. [facility] History I have reviewed the patient's past medical history: Yes Medical History: Reports:: Diabetes Mellitus Type 1, Hyperlipidemia, Hypertension, Internal Pacemaker, Peripheral Vascular Disease Denies:: Cancer, Diabetes Mellitus Type 2, MRSA, Seizures *Have you ever received a pneumonia vaccine?: No *Have you received a flu vaccine this season?: No Other Medical History: Reports: Arthritis, Blood Transfusion Reaction Laterality Cases: Right: Carpal Tunnel Release, Bilateral: Other Other Surgeries: Yes: No Previous Surgery, Colonoscopy, EGD, Hernia Repair, Pacemaker Amputation: No Fractures: No - *Social History Smoking Status: Never smoker Alcohol Intake: never Alcohol Intake Frequency:: other Substance Use Type: denies use *Occupational Status:: other Housing: house Household Members: other *Travel in the last 8 weeks: None Family Hx:: Unable to obtain
== END ==
PROVIDERS: PCP Internal Medicine; Visit Provider Clinical Nurse Specialist Family Health
DX: G58.8 Other specified mononeuropathies
CPT/HCPCS: 99212

== ENCOUNTER → 2020-05-18 15:02 | Outpatient (POV) | payer MEDICARE, SELFPAY ==
--- NOTE | 2020-05-18 15:12 | HMH.PAINSOAP ---
[facility] Pain Management SOAP Note Subjective:: Patient is a 80-year-old white male who presents today for follow-up. He is currently undergoing Sprint SCS therapy. Patient has chronic right groin pain after hernia surgery. He has inguinal neuralgia with radiation of pain into his right testicle. Patient says his pain is currently out of 4 out of 10. He is still doing well with his therapy. He says nothing has changed since his last visit. Patient says that he is very happy with the results so far. He says he is currently running the settings at 100 throughout the day. He is hoping that he will have discontinued relief once the device is removed. Review of Systems General: No recent weight changes, no fever, no sleep disturbances Respiratory: No cough, no shortness of air, no recurring pulmonary infections Cardiovascular/peripheral vascular: No chest pain, no palpitations, no edema, no shortness of breath Gastrointestinal: No new onset incontinence, normal bowel movements reported Genitourinary: No new onset incontinence Musculoskeletal: Intermittent right groin pain, intermittent right testicular pain Psychiatric: Normal mood/affect Neurological: [Denies weakness in extremities], [denies balance issues] Objective:: Physical exam General: Alert and oriented x3, no acute distress, pleasant and cooperative, [on room air] Lungs: Respirations even and unlabored, symmetrical chest expansion Eyes: PERRL Musculoskeletal: Flexion and extension of lumbar spine somewhat guarded secondary to pain, deep tendon reflexes normal, strength in upper and lower extremities [5/5], antalgic gait noted Neurological: Speech clear, filling mixer equal, no gross sensory deficit Assessment:: Right groin pain with inguinal neuralgia, ilioinguinal ileo-hypogastric genitofemoral neuralgia Plan:: Overall, the patient is doing well with his therapy. We will plan to see him back in a month to reassess his symptoms. Patient has been instructed to contact clinic if he has any concerns before his next appointment. The patient and I specifically discussed risk factors for COVID19. These risks include, but are not limited to age greater than 60, heart or lung disease, diabetes, immunosuppression, and travel. We also discussed NSAIDs may worsen COVID19 infection or symptoms. Patient should not use NSAIDs to treat COVID19 signs or symptoms. Patient was also informed that any type of corticosteroid of any form (oral or injection) will decrease the patient's immune system response and may increase the likelihood of COVID19 [address] Adamson has reviewed this note and agrees with this plan of care. This note was dictated using voice recognition software and make contain errors or omissions. [facility] History I have reviewed the patient's past medical history: Yes Medical History: Reports:: Diabetes Mellitus Type 1, Hyperlipidemia, Hypertension, Internal Pacemaker, Peripheral Vascular Disease Denies:: Cancer, Diabetes Mellitus Type 2, MRSA, Seizures *Have you ever received a pneumonia vaccine?: No *Have you received a flu vaccine this season?: No Other Medical History: Reports: Arthritis, Blood Transfusion Reaction Laterality Cases: Right: Carpal Tunnel Release, Bilateral: Other Other Surgeries: Yes: No Previous Surgery, Colonoscopy, EGD, Hernia Repair, Pacemaker Amputation: No Fractures: No - *Social History Smoking Status: Never smoker Alcohol Intake: never Alcohol Intake Frequency:: other Substance Use Type: denies use *Occupational Status:: other Housing: house Household Members: other *Travel in the last 8 weeks: None Family Hx:: Unable to obtain
[2020-05-18 15:21] VITALS: BP 135/88; PULSE 75; RESP 18; TEMP 36.6; O2SAT 98
== END ==
PROVIDERS: PCP Internal Medicine; Visit Provider Clinical Nurse Specialist Family Health
DX: R10.31 Right lower quadrant pain (principal); G58.8 Other specified mononeuropathies
CPT/HCPCS: 99212

== ENCOUNTER → 2020-06-15 13:28 | Outpatient (POV) | payer MEDICARE, SELFPAY ==
[2020-06-15 14:05] VITALS: BP 125/52; PULSE 85; RESP 18; TEMP 36.6; O2SAT 98; BMI 20.9
--- NOTE | 2020-06-15 14:28 | P.CONS_ITS ---
[facility] Pain Management SOAP Note Subjective:: Patient is a pleasant 80-year-old white male who presents today for follow-up. He is currently undergoing spring SCS therapy for chronic right groin pain after hernia surgery. He has inguinal neuralgia with radiation of pain into his right testicle. His pain is a 4 out of 10 today. He still continuing to do well with his therapy. Nothing is changed since his last visit. He is very happy with result so far. Patient states he feels 100% better in comparison to the first day he visited our office. Review of Systems General: No recent weight changes, no fever, no sleep disturbances Respiratory: No cough, no shortness of air, no recurring pulmonary infections Cardiovascular/peripheral vascular: No chest pain, no palpitations, no edema, no shortness of breath Gastrointestinal: No new onset incontinence, normal bowel movements reported Genitourinary: No new onset incontinence Musculoskeletal: Intermittent right groin pain Psychiatric: Normal mood/affect Neurological: [Denies weakness in extremities], [denies balance issues] Objective:: Physical exam General: Alert and oriented x3, no acute distress, pleasant and cooperative, [on room air] Lungs: Respirations even and unlabored, symmetrical chest expansion Eyes: PERRL Musculoskeletal: Flexion and extension of lumbar spine somewhat guarded secondary to pain, deep tendon reflexes normal, strength in upper and lower extremities [5/5], [abnormal gait noted] Neurological: Speech clear, sales lead generator equal, no gross sensory deficit Assessment:: Right groin pain with inguinal neuralgia, ilioinguinal ileohypogastric genitofemoral neuralgia Plan:: Overall the patient is continuing to do well with his SCS therapy. The patient will have had the device and for 60 days on June 28. We will plan to see him back in the clinic on June 30 for removal of the spring SCS system. Patient has been instructed to contact the clinic if he has any concerns before that appointment. The patient and I specifically discussed risk factors for COVID19. These risks include, but are not limited to age greater than 60, heart or lung disease, diabetes, immunosuppression, and travel. We also discussed NSAIDs may worsen COVID19 infection or symptoms. Patient should not use NSAIDs to treat COVID19 signs or symptoms. Patient was also informed that any type of corticosteroid of any form (oral or injection) will decrease the patient's immune system response and may increase the likelihood of COVID19 [address] Adamson has reviewed this note and agrees with this plan of care. This note was dictated using voice recognition software and make contain errors or omissions. [facility] History I have reviewed the patient's past medical history: Yes Medical History: Reports:: Diabetes Mellitus Type 1, Hyperlipidemia, Hypertension, Internal Pacemaker, Peripheral Vascular Disease Denies:: Cancer, Diabetes Mellitus Type 2, MRSA, Seizures *Have you ever received a pneumonia vaccine?: Yes *Have you received a flu vaccine this season?: Yes Other Medical History: Reports: Arthritis, Blood Transfusion Reaction Laterality Cases: Right: Carpal Tunnel Release, Bilateral: Other Other Surgeries: Yes: No Previous Surgery, Colonoscopy, EGD, Hernia Repair, Pac emaker Amputation: No Fractures: No - *Social History Smoking Status: Never smoker Alcohol Intake: never Alcohol Intake Frequency:: other Substance Use Type: denies use *Occupational Status:: other Housing: house Household Members: other *Travel in the last 8 weeks: None Family Hx:: Unab
== END ==
PROVIDERS: PCP Internal Medicine; Visit Provider Clinical Nurse Specialist Family Health
DX: R10.30 Lower abdominal pain, unspecified (principal); G58.8 Other specified mononeuropathies
CPT/HCPCS: 99212

== ENCOUNTER → 2020-06-30 09:10 | Outpatient (POV) | payer MEDICARE, SELFPAY ==
[2020-06-30 09:17] VITALS: BP 157/76; PULSE 66; RESP 18; TEMP 36.4; O2SAT 100; BMI 20.9
--- NOTE | 2020-06-30 10:43 | P.PCN_ITS ---
- Procedure Date: 06/30/20 Time: 10:43 Anesthesiologist:: Rambo Adamson MD Complications:: None Pre-procedure Diagnosis:: Right groin pain with inguinal neuralgia, ilioinguinal/iliohypogastric/genitofemoral neuralgia status post Sprint PCS norris pheral nerve stimulation Post-procedure Diagnosis:: Same Indications for Procedure:: This patient is a pleasant 80-year-old white male who presents for lead removal after 6 weeks of stimulation with the Sprint PCS peripheral nerve stimulation system. He has done very well with 100% relief in his pain symptoms. He has been turning it off at night and this is also been providing continued pain relief. He has no pain into the right testicle. He has no post herniorrhaphy pain. He has no ilioinguinal/heel epigastric neuralgia. He has no groin pain today. His lead was removed intact with no signs of infection. Site was clean dry and intact. Procedure Details:: Procedure: Informed consent was obtained the risk and benefits of the procedure was planed to the patient. The peripheral nerve stimulation lead was removed intact with no signs of infection. A Band-Aid is placed. Patient tolerated the procedure well with no complications. Plan and Disposition:: We will follow-up with him in 1 month. We will reevaluate symptoms at that time. We expect that he continues to get pain relief even after removal of the system.
== END ==
PROVIDERS: PCP Internal Medicine; Visit Provider Anesthesiology
DX: G58.8 Other specified mononeuropathies; Z98.890 Other specified postprocedural states
CPT/HCPCS: 99212

== ENCOUNTER → 2020-08-03 11:06 | Outpatient (POV) | payer MEDICARE, SELFPAY ==
[2020-08-03 11:29] VITALS: BP 112/74; PULSE 74; RESP 18; TEMP 36.8; O2SAT 98; BMI 20.9
--- NOTE | 2020-08-03 12:02 | P.CONS_ITS ---
[facility] Pain Management SOAP Note Subjective:: Patient is a 80-year-old white male who presents today for follow-up after Sprint PCS peripheral nerve stimulation system implant and removal. Patient is still doing very well since having the stimulator removed. He is getting about 90% relief at this time. His pain is a 0 out of 10 at this time. He was treated for right groin pain with inguinal neuralgia, ilioinguinal iliohypogastric genitofemoral neuralgia. Patient says that he is thankful he had the procedure done and is doing well overall. Review of Systems General: No recent weight changes, no fever, no sleep disturbances Respiratory: No cough, no shortness of air, no recurring pulmonary infections Cardiovascular/peripheral vascular: No chest pain, no palpitations, no edema, no shortness of breath Gastrointestinal: No new onset incontinence, normal bowel movements reported Genitourinary: No new onset incontinence Musculoskeletal: Intermittent groin pain right side Psychiatric: Normal mood/affect Neurological: [Denies weakness in extremities], [denies balance issues] Objective:: Physical exam General: Alert and oriented x3, no acute distress, pleasant and cooperative, [on room air] Lungs: Respirations even and unlabored, symmetrical chest expansion Eyes: PERRL Musculoskeletal: guarded to right groin area intermittently secondary to pain, deep tendon reflexes normal, strength in upper and lower extremities [5/5], [abnormal gait noted] Neurological: Speech clear, compliance technician equal, no gross sensory deficit Assessment:: Right groin pain with inguinal neuralgia, ilioinguinal/iliohypogastric/genitofemoral neuralgia Plan:: The patient is doing well overall. He is getting about 90% relief following his removal of his PCS Sprint system. We will plan to follow-up with the patient in 6 months to reevaluate his symptoms. He has been instructed to contact clinic if he has any concerns before his next appointment. The patient and I specifically discussed risk factors for COVID19. These risks include, but are not limited to age greater than 60, heart or lung disease, diabetes, immunosuppression, and travel. We also discussed NSAIDs may worsen COVID19 infection or symptoms. Patient should not use NSAIDs to treat COVID19 signs or symptoms. Patient was also informed that any type of corticosteroid of any form (oral or injection) will decrease the patient's immune system response and may increase the likelihood of COVID19 [address] symptoms[address] Adamson has reviewed this note and agrees with this plan of care. This note was dictated using voice recognition software and make contain errors or omissions. [facility] History I have reviewed the patient's past medical history: Yes Medical History: Reports:: Diabetes Mellitus Type 1, Hyperlipidemia, Hypertensi on, Internal Pacemaker, Peripheral Vascular Disease Denies:: Cancer, Diabetes Mellitus Type 2, MRSA, Seizures *Have you ever received a pneumonia vaccine?: Yes *Have you received a flu vaccine this season?: Yes Other Medical History: Reports: Arthritis, Blood Transfusion Reaction Laterality Cases: Right: Carpal Tunnel Release, Bilateral: Other Other Surgeries: Yes: No Previous Surgery, Colonoscopy, EGD, Hernia Repair, Pacemaker Amputation: No Fractures: No - *Social History Smoking Status: Never smoker Alcohol Intake: never Alcohol Intake Frequency:: other Substance Use Type: denies use *Occupational Status:: other Housing: house Household Members: other *Travel in the last 8 weeks: None Family Hx:: Unable to obtain
== END ==
PROVIDERS: PCP Internal Medicine; Visit Provider Clinical Nurse Specialist Family Health
DX: G58.8 Other specified mononeuropathies (principal); R10.30 Lower abdominal pain, unspecified
CPT/HCPCS: 99212

== ENCOUNTER → 2020-09-05 10:21 | Outpatient (CLI) | payer MEDICARE, SELFPAY | PROVIDERS: Visit Provider Urology | DX: R31.0 Gross hematuria (principal) | CPT/HCPCS: 87086 ==

== ENCOUNTER → 2020-09-05 10:25 | Outpatient (CLI) | payer MEDICARE, SELFPAY ==
[2020-09-05 10:53] LABS: Basophils % 0.3 % (0.1-2.0); Eosinophils # 0.2 K/mm3 (0.0-0.4); Eosinophils % 2.8 % (0.1-12.0); Hematocrit 34.9 % (42.0-52.0); Hemoglobin 11.2 g/dL (14.1-18.0); Lymphocytes # 1.5 K/mm3 (0.7-4.5); Lymphocytes % 16.6 % (10-50); Mean Corpuscular HGB Conc 32.3 g/dL (31.8-35.4); Mean Corpuscular Hemoglobin 31.6 pg (27.0-31.2); Mean Platelet Volume 6.9 fl (7.4-10.4); Monocytes # 0.4 K/mm3 (0.1-1.0); Monocytes % 4.6 % (1.7-9.3); Neutrophils # 6.6 K/mm3 (1.8-7.8); Neutrophils % 75.8 % (37.0-80.0); Platelet Count 391 K/mm3 (142-424); Red Blood Count 3.56 M/mm3 (4.60-6.20); Red Cell Distribution Width 14.9 % (11.5-17.5); White Blood Count 8.8 K/mm3 (4.8-10.8)
[2020-09-05 11:31] LABS: Chloride 109 mmol/L (98-107); Potassium 5.4 mmoL/L (3.5-5.1); Sodium 139 mmol/L (136-145)
[2020-09-05 11:34] LABS: Anion Gap 13.4 mEq/L (5-15); Blood Urea Nitrogen 44 mg/dl (9-20); Carbon Dioxide 22 mmol/L (22.0-30.0); Estimated Glomerular Filt Rate 18 ml/min (>60); GFR (African American) 22 ML/MIN (>60)
[2020-09-05 11:35] LABS: Calcium 9.5 mg/dl (8.4-10.2); Glucose 96 mg/dl (74-100)
[2020-09-06 13:25] LABS: PSA, Free 3.03 ng/mL; Prostate Specific Ag 11.4 ng/mL (0.0-4.0)
== END ==
PROVIDERS: Visit Provider Urology
DX: R97.20 Elevated prostate specific antigen [PSA] (principal); R31.0 Gross hematuria
CPT/HCPCS: 36415; 80048; 84153; 84154; 85025; 87086; 87088; 87186

== ENCOUNTER → 2020-09-06 07:50 | Outpatient (CLI) | payer MEDICARE, SELFPAY ==
--- NOTE | 2020-09-06 07:50 | CT_ITS ---
PROCEDURE: CT ABDOMEN PELVIS WO CON CLINICAL INDICATION: Gross hematuria, low abd pain prior 01/05/20 COMPARISON: CT CT ABDOMEN PELVIS WO CON from 01/05/2020 TECHNIQUE: Axial images obtained with sagittal and coronal reformats. All CT scans at the facility use one or more dose reduction, viz: automated exposure control, ma/kV adjustment per patient size (including targeted exams where dose is matched to indication, i.e. head), or iterative reconstruction technique. FINDINGS: LOWER THORAX: No acute finding ABDOMEN & PELVIS: The liver, gallbladder, spleen, adrenal glands, and pancreas have unremarkable unenhanced appearance. Metallic artifact is present at the GE junction. No renal or ureteral calculi. No hydronephrosis. Sutures are present in the anterior abdominal wall. There is a mild amount of retained colonic feces. No evidence of intestinal obstruction or free air. No evidence of appendicitis. There is colonic diverticulosis but no evidence of diverticulitis. There is enlarged prostate at 6 cm. There is mild concentric thickening of the urinary bladder wall. There is mild lumbar scoliosis convex right with degenerative disc disease in the lumbar spine. There are few scattered small nodes in the inguinal region. IMPRESSION: 1. No evidence of renal or ureteral calculi or renal mass. 2. There is mild urinary bladder wall thickening which may be seen with incomplete distension, chronic outflow obstruction, or cystitis. 3. Enlarged prostate Dictated by: Joshua Rubi MD 09/08/2020 10:28 Joshua Rubi MD in [place] 09/08/2020 10:28
[2020-09-06 10:43] LABS: Coronavirus 19 IgG Antibody Negative (Negative); Coronavirus 19 IgM Antibody Negative (Negative)
== END ==
PROVIDERS: PCP Internal Medicine; Visit Provider Urology
DX: R31.0 Gross hematuria (principal); Z01.818 Encounter for other preprocedural examination; Z03.818 Encounter for observation for suspected exposure to other biological agents ruled out; N40.0 Benign prostatic hyperplasia without lower urinary tract symptoms
CPT/HCPCS: 36415; 74176; 86328

== ENCOUNTER 2020-09-08 08:45 | Day surgery (SDC) | payer MEDICARE, SELFPAY ==
[2020-09-05 11:15] VITALS: BMI 21.7
[2020-09-08 09:20] VITALS: BP 167/87; PULSE 83; RESP 18; TEMP 36.3; O2SAT 95
[2020-09-08 10:42] VITALS: BP 158/93; PULSE 68; RESP 18; O2SAT 99
[2020-09-08 11:12] VITALS: BP 152/87; PULSE 67; RESP 18; O2SAT 98
--- NOTE | 2020-09-08 13:50 | HMH.OPNOTE ---
Date of procedure: 09/08/20 Pre-op Diagnosis:: Gross hematuria Post-op Diagnosis:: Gross hematuria secondary to some prostate bleeding Procedure performed:: Cystoscopy with bladder irrigation and Feldman catheter placement Surgeon:: Darron Stephenson MD Anesthesia: local Estimated blood loss (mL): 0 Clinical Note:: 80-year-old white male with 2-week history of gross hematuria presents for cystoscopic evaluation. Recent CT scan shows no evidence of renal or bladder masses, stones, obstruction. Operative findings:: The bladder was irrigated free of some small clots and blood. Bladder was clear cystoscopy revealed no evidence of mucosal abnormalities in the bladder. There was some bleeding from the prostatic urethra specifically on the right side of the mid prostate. Feldman catheter placed for tamponade purposes. Urine was clear in the catheter after the procedure. Operative note:: Patient taken to the cystoscopy suite after informed consent was obtained. He was prepped and draped in the standard surgical fashion and 2% lidocaine placed into the urethra and clamped for 5 minutes. After unclamping a 22 Macedonian Feldman catheter was passed into the bladder and the dark red urine was evacuated. A Kesha syringe was then used to irrigate the bladder free of some small clots and blood. Once the irrigant was clear the flexible cystoscope introduced into the urethral meatus and it passed to the prostatic urethra which was large and coapting. There was some bleeding from a couple of sites in the prostatic urethra on the right side. The scope was passed into the bladder and the bladder examined in a systematic fashion. There is no evidence of mucosal abnormalities or stones. Trabeculation was noted but no evidence of diverticula or bleeding nidus. There was a large median lobe present. Scope then removed and a 22 Macedonian Feldman catheter passed into the bladder and anchored. Feldman catheter was attached to the Feldman bag and the urine was clear. Discussed the findings today and I am going to place him on a course of finasteride and see him back in the office next week. He will continue to hold his Plavix and aspirin until Friday. Condition: stable Disposition: same day Specimens:: None Complications:: None
== END 2020-09-08 11:12 | disposition home or self-care (01) ==
LOC: OUTP 08:47
PROVIDERS: PCP Internal Medicine; Visit Provider Urology
DX: R31.0 Gross hematuria (principal); I10 Essential (primary) hypertension; Z79.82 Long term (current) use of aspirin; Z79.899 Other long term (current) drug therapy
CPT/HCPCS: 51702

== ENCOUNTER → 2020-09-21 08:54 | Outpatient (CLI) | payer MEDICARE, SELFPAY ==
[2020-09-21 10:08] LABS: Coronavirus 19 IgG Antibody Negative (Negative); Coronavirus 19 IgM Antibody Negative (Negative)
[2020-09-21 14:36] LABS: Basophils # 0.1 K/mm3 (0-0.2); Basophils % 0.6 % (0.1-2.0); Eosinophils # 0.2 K/mm3 (0.0-0.4); Eosinophils % 2.4 % (0.1-12.0); Hemoglobin 10.1 g/dL (14.1-18.0); Lymphocytes # 1.5 K/mm3 (0.7-4.5); Lymphocytes % 19.5 % (10-50); Mean Corpuscular HGB Conc 32.5 g/dL (31.8-35.4); Mean Corpuscular Hemoglobin 31.8 pg (27.0-31.2); Mean Corpuscular Volume 97.6 fl (80-94); Mean Platelet Volume 7.6 fl (7.4-10.4); Monocytes # 0.4 K/mm3 (0.1-1.0); Monocytes % 5.5 % (1.7-9.3); Neutrophils # 5.6 K/mm3 (1.8-7.8); Platelet Count 459 K/mm3 (142-424); Red Blood Count 3.18 M/mm3 (4.60-6.20); Red Cell Distribution Width 14.3 % (11.5-17.5); White Blood Count 7.8 K/mm3 (4.8-10.8)
[2020-09-21 14:38] LABS: Chloride 108 mmol/L (98-107); Potassium 4.9 mmoL/L (3.5-5.1); Sodium 138 mmol/L (136-145)
[2020-09-21 14:41] LABS: Anion Gap 13.9 mEq/L (5-15); Blood Urea Nitrogen 45 mg/dl (9-20); Carbon Dioxide 21 mmol/L (22.0-30.0); Estimated Glomerular Filt Rate 20 ml/min (>60); GFR (African American) 24 ML/MIN (>60)
[2020-09-21 14:42] LABS: Calcium 9.6 mg/dl (8.4-10.2); Glucose 193 mg/dl (74-100)
--- NOTE | 2020-09-22 09:16 | HMH.ANESCL ---
[facility] Anesthesia Checklist - Patient Identification Patient Identification: Arm Band, Verbal (Name & ) - Structural Data Admitted From: Home Planned Operative Procedure/s: cysto Consent for Planned Operative Procedure(s) Verified: Yes Verified Documents: History and Physical - NPO Status Verified Time NPO: 00:00 - Chart Verification Results Verified: CBC, BMP - Additional verifications Patient : No Anesthesia Reactions: No Hx Blood Transfusions: No Blood Transfusion Reaction: Yes Cephalosporin Allergy: No Previous Colonoscopy: No - Cardiovascular Assessment Heart Sounds: S1 & S2 Pulse Strength: Baseline Pulse Rhythm: Regular Peripheral Edema: No - Airway Assessment C-Spine Mobility Assessed: Yes TMJ Mobility Assessed: Yes Dentition: Good Dentition - Neurological Assessment Level of Consciousness: Awake, Alert, Appropriate Hx Seizures: No Numbness or tingling in extremities: No - Anesthesia Plan Anesthesia Risk discussed: Yes Anesthesia Plan: Verified ASA Class: III Anesthesia Type: General [facility] History I have reviewed the patient's past medical history: Yes Medical History: Reports:: Hyperlipidemia, Hypertension, Peripheral Vascular Disease Denies:: Cancer, Diabetes Mellitus Type 1, Diabetes Mellitus Type 2, Internal Pacemaker, MRSA, Seizures *Have you ever received a pneumonia vaccine?: Yes *Have you received a flu vaccine this season?: No Other Medical History: Reports: Arthritis, Blood Transfusion Reaction Anesthesia experience/problems:: none Laterality Cases: Right: Carpal Tunnel Release, Bilateral: Other Other Surgeries: Yes: No Previous Surgery, Colonoscopy, EGD, Hernia Repair. No: Pacemaker Amputation: No Fractures: No - *Social History Smoking Status: Never smoker Alcohol Intake: never Alcohol Intake Frequency:: other Substance Use Type: denies use *Occupational Status:: retired Housing: house Household Members: spouse *Travel in the last 8 weeks: None Family Hx:: No significant family history
== END ==
PROVIDERS: Visit Provider Urology
DX: R31.0 Gross hematuria (principal); Z01.818 Encounter for other preprocedural examination; Z20.822 Contact with and (suspected) exposure to COVID-19
CPT/HCPCS: 36415; 80048; 85025; 86328

== ENCOUNTER 2020-09-22 08:47 | Day surgery (SDC) | payer MEDICARE, SELFPAY ==
[2020-09-19 12:09] VITALS: BMI 21.3
[2020-09-22] VITALS (13 sets, daily range): BP systolic 122–147; BP diastolic 70–87; PULSE 52–72; RESP 16–18; TEMP 6.1–43; O2SAT 97–100
--- NOTE | 2020-09-22 10:26 | SUR.PREOP ---
1025-assisted pt to BR and back to stretcher. Pt comfortable
--- NOTE | 2020-09-22 12:03 | FL_ITS ---
PROCEDURE: FL CYSTOGRAM NON-VOIDING CLINICAL INDICATION: CYSTOSCOPY WITH BILATERAL RETROGRADES IN OR COMPARISON: No exams were available for comparison FINDINGS: Fluoroscopy time: 1 minutes and 57 seconds. There are 3 images submitted. First image shows a cystoscope present with contrast in the urinary bladder and the distal right ureter which is dilated. Second image shows kinking of the right ureter in the pelvic region with a bandlike area of decreased density in this area. Third image shows some contrast in the left renal collecting system. Please correlate with fluoroscopic findings. IMPRESSION: As above, C-arm utilized for cystogram Dictated by: Joshua Rubi MD 09/26/2020 09:24 Joshua Rubi MD in [place] 09/26/2020 09:24
--- NOTE | 2020-09-22 12:04 | HMH.ANESCL ---
[facility] Anesthesia Checklist - Patient Identification Patient Identification: Arm Band, Verbal (Name & ) - Structural Data Admitted From: Home Planned Operative Procedure/s: cysto Consent for Planned Operative Procedure(s) Verified: Yes Verified Documents: History and Physical - NPO Status Verified Time NPO: 00:00 - Chart Verification Results Verified: CBC, BMP - Additional verifications Patient : No Anesthesia Reactions: No Hx Blood Transfusions: No Blood Transfusion Reaction: Yes Cephalosporin Allergy: No Previous Colonoscopy: No - Cardiovascular Assessment Heart Sounds: S1 & S2 Pulse Strength: Baseline Pulse Rhythm: Regular Peripheral Edema: No - Airway Assessment C-Spine Mobility Assessed: Yes TMJ Mobility Assessed: Yes Dentition: Good Dentition - Neurological Assessment Level of Consciousness: Awake, Alert, Appropriate Hx Seizures: No Numbness or tingling in extremities: No - Anesthesia Plan Anesthesia Risk discussed: Yes Anesthesia Plan: Verified ASA Class: III Anesthesia Type: General [facility] History I have reviewed the patient's past medical history: Yes Medical History: Reports:: Hyperlipidemia, Hypertension, Peripheral Vascular Disease Denies:: Cancer, Diabetes Mellitus Type 1, Diabetes Mellitus Type 2, Internal Pacemaker, MRSA, Seizures *Have you ever received a pneumonia vaccine?: Yes *Have you received a flu vaccine this season?: No Other Medical History: Reports: Arthritis, Blood Transfusion Reaction Anesthesia experience/problems:: none Laterality Cases: Right: Carpal Tunnel Release, Bilateral: Other Other Surgeries: Yes: No Previous Surgery, Colonoscopy, EGD, Hernia Repair. No: Pacemaker Amputation: No Fractures: No - *Social History Last grade of school completed: 11th or 12th Smoking Status: Never smoker Alcohol Intake: never Alcohol Intake Frequency:: other Substance Use Type: denies use *Occupational Status:: retired Housing: house Household Members: spouse *Travel in the last 8 weeks: None Family Hx:: No significant family history
--- NOTE | 2020-09-22 12:06 | P.PN_ITS ---
[facility] Anesthesia Record Part I Intake, IV Amount: 400 Estimated blood loss (mL): 10 Urine output (mL): 30 Blood Products used (#): none Blood Pressure: 136/87 SaO2: 98 Pulse Rate: 70 Respiratory Rate: 18 Temperature: 97.6 F Patient is:: Drowsy, Stable Stable to PACU at:: 11:58
--- NOTE | 2020-09-22 12:32 | PC.NURSE ---
1227-detailed report called to ERICA Juárez 1229-pt transported to post op via stretcher w/gale rails up per S.LucyRN, vss, pt stable
--- NOTE | 2020-09-22 12:47 | P.PN_ITS ---
[facility] Anesthesia Record Part II Discharge Time: 12:28 Destination: Surgical Day Care (OP Surgery) PACU nurse assessment reviewed?: Yes Patient Condition:: Good Anesthesia Complications:: None Swallowing reflex intact?: Yes Cyanosis?: No Blood Pressure: 130/70 Pulse Rate: 60 Temperature: 97.2 F Mental Status: Alert & Oriented Pain level:: 0 Nausea and/or vomitting:: None Intake, IV Amount: 50
--- NOTE | 2020-09-22 16:16 | P.OP_ITS ---
Date of procedure: 09/22/20 Pre-op Diagnosis:: Gross hematuria Post-op Diagnosis:: Gross hematuria secondary to prostate bleeding Procedure performed:: Cystoscopy with bilateral retrograde pyelograms and fulguration of prostate tissue Surgeon:: Darron Stephenson MD CUSTOMER ACCOUNT MANAGER:: Anup Hernandez Anesthesia: GETA Estimated blood loss (mL): 0 Clinical Note:: 80-year-old white male with some persistent gross hematuria. Patient presents today for urologic evaluation and management. Operative findings:: Cystoscopic examination revealed findings of bladder outlet obstruction with trabeculation and cellule formation. There is no evidence of bladder tumors or other mucosal changes in the bladder. The ureteral orifices in their normal anatomic position and clear reflux was noted. Retrograde pyelogram showed no evidence of filling defects. The prostate was fulgurated and Feldman catheter placed without complication Operative note:: Patient taken to the operating room after informed consent was obtained. Was placed on the operating table in the supine position and general anesthesia administered. Preoperative antibiotics and sequential compression devices were placed. Was then placed into the dorsal lithotomy position and prepped and draped in the standard surgical fashion. A 22 Amharic cystoscope passed into the urethral meatus and to the prostatic urethra. The prostate showed no evidence of active bleeding however it was quite large in the lobes were coapting. Bladder was entered and examined in a systematic fashion. There was diffuse trabeculation and cellule formation. There is no evidence of bladder tumors or other mucosal abnormalities. The ureteral orifices in their normal anatomic position and clear reflux of urine was noted. The ureteral catheter was placed into the left ureteral orifice and contrast injected in a retrograde fashion. The distalmost ureter was dilated likely owing to his large prostate. There was a narrowing of the most proximal ureter and a jet of contrast seen going into the left renal pelvis. The renal pelvis filled and there was some mild hydro but no caliectasis and no filling defects. The right ureteral orifice was then cannulated with the ureteral catheter and contrast injected in a retrograde fashion. Again the most distal ureter was dilated the segment of the mid ureter dilated as well there is no evidence of hydronephrosis or filling defects. Drainage films revealed prompt drainage of contrast from the right kidney and some delay on the left. The cystoscope then removed and the 26 Amharic resectoscope sheath passed after the urethra was dilated to 28 Amharic with [place] dilators. Scope passed into the bladder and there was no evidence of any blood from either ureter after the retrograde pyelograms. The cautery loop was used to fulgurate the bladder neck in a circumferential fashion as well as the distal most prostatic urethra. The scope then removed and a 22 Amharic coud? catheter placed. Urine was slightly pink. Patient tolerated procedure well no complications. He will go home with his Feldman catheter and I will see him back in 1 week. He may resume his Plavix on Friday and will continue the finasteride. Condition: stable Disposition: PACU Specimens:: None Complications:: None
== END 2020-09-22 13:55 | disposition home or self-care (01) ==
LOC: OR 08:50
PROVIDERS: PCP Internal Medicine; Visit Provider Urology
PROC: 0TJB8ZZ Inspection of Bladder, Via Natural or Artificial Opening Endoscopic (ICD-10-PCS; CPT 52000; principal; 2020-09-22 10:45)
DX: N13.5 Crossing vessel and stricture of ureter without hydronephrosis (principal); N40.1 Benign prostatic hyperplasia with lower urinary tract symptoms; R31.0 Gross hematuria; E78.5 Hyperlipidemia, unspecified; I10 Essential (primary) hypertension; I73.9 Peripheral vascular disease, unspecified
CPT/HCPCS: 52214; 52344; 74430; 96374

== ENCOUNTER → 2020-11-06 12:37 | Outpatient (CLI) | payer MEDICARE, SELFPAY | PROVIDERS: Visit Provider Family Medicine | DX: D50.0 Iron deficiency anemia secondary to blood loss (chronic) (principal) | CPT/HCPCS: 86850 ==

== ENCOUNTER 2020-11-07 08:12 | Outpatient (CLI) | payer MEDICARE, SELFPAY ==
[2020-11-07] VITALS (20 sets, daily range): BP systolic 127–159; BP diastolic 66–91; PULSE 60–73; RESP 16–18; TEMP 36.2–36.6; O2SAT 96–100; BMI 21.2
--- NOTE | 2020-11-07 13:01 | PC.NURSE ---
0900 Transfusion of 1st unit blood initiated at this time. Lungs clear. VSS. Resp easy/reg. Denies complaints. Reviewed s/s transfusion reaction with patient who verbalizes understanding of all instruction. Skin warm/dry to touch. IV patent. 1000 Patient tolerating blood well. VSS. IV patent. Denies complaints. No s/s transfusion reaction noted. 1100 Patient tolerating blood well with no s/s transfusion reactoin or problems noted. Resp easy/reg. VSS. IV patent. Denies c/o. Lungs clear. Up to bathroom to void. 1110 Transfusion of 1st unit of blood complete at this time time. Patient tolerated with no problems.
--- NOTE | 2020-11-07 14:10 | PC.NURSE ---
1150 Initiation of transfusion of 2nd unit of blood at this time. VSS. Lungs clear. Resp easy/reg. Reviewed s/s of transfusion reaction with patient who verbalizes understanding of all instruction. IV patent. 1250 Patient tolerating blood transfusion well with no s/s transfusion reaction noted. IV patent. VSS. Denies complaints. Up to bathroom to void at this time and tolerated well. 1350 2nd unit of blood complete at this time. Patient continues to tolerate well with no s/s transfusion reaction or problems. VSS. IV patent. Skin warm/dry to touch. Lungs clear. Patient denies any complaints.
[2020-11-07 15:00] LABS: Hematocrit 29.5 % (42.0-52.0); Hemoglobin 9.2 g/dL (14.1-18.0)
--- NOTE | 2020-11-07 15:07 | PC.NURSE ---
1450 One hour post transfusion H&H collected at this time. VSS. Patient continues to deny complaints. Resp easy/reg. IV discontinued. 145 Patient discharged home/stable with no problems/no s/s transfusion reaction noted.
[2020-11-07 15:33] LABS: Hemoglobin 7.3 g/dL (14.1-18.0)
== END 2020-11-07 14:55 | disposition home or self-care (01) ==
LOC: INF 08:12
PROVIDERS: Visit Provider Family Medicine
DX: D50.0 Iron deficiency anemia secondary to blood loss (chronic) (principal)
CPT/HCPCS: 36430; 85014; 85018; P9016

== ENCOUNTER → 2020-11-18 09:46 | Outpatient (CLI) | payer MEDICARE, SELFPAY ==
[2020-11-18 10:32] LABS: Basophils % 0.4 % (0.1-2.0); Eosinophils # 0.4 K/mm3 (0.0-0.4); Eosinophils % 3.9 % (0.1-12.0); Hematocrit 29.7 % (42.0-52.0); Hemoglobin 8.9 g/dL (14.1-18.0); Lymphocytes # 1.2 K/mm3 (0.7-4.5); Lymphocytes % 13.4 % (10-50); Mean Corpuscular HGB Conc 30.1 g/dL (31.8-35.4); Mean Corpuscular Volume 89.7 fl (80-94); Mean Platelet Volume 7.4 fl (7.4-10.4); Monocytes # 0.5 K/mm3 (0.1-1.0); Monocytes % 5.4 % (1.7-9.3); Neutrophils # 6.9 K/mm3 (1.8-7.8); Neutrophils % 76.8 % (37.0-80.0); Platelet Count 428 K/mm3 (142-424); Red Blood Count 3.31 M/mm3 (4.60-6.20); Red Cell Distribution Width 15.3 % (11.5-17.5)
[2020-11-18 11:20] LABS: Anion Gap 15.4 mEq/L (5-15); Carbon Dioxide 14 mmol/L (22.0-30.0); Chloride 118 mmol/L (98-107); Estimated Glomerular Filt Rate 20 ml/min (>60); GFR (African American) 24 ML/MIN (>60); Sodium 141 mmol/L (136-145)
[2020-11-18 11:36] LABS: Coronavirus 19 IgG Antibody Positive (Negative); Coronavirus 19 IgM Antibody Negative (Negative)
[2020-11-18 11:53] LABS: Blood Urea Nitrogen 43 mg/dl (9-20); Calcium 8.6 mg/dl (8.4-10.2); Glucose 120 mg/dl (74-100)
[2020-11-18 12:02] LABS: Potassium 6.4 mmoL/L (3.5-5.1)
== END ==
PROVIDERS: Visit Provider Urology
DX: R31.0 Gross hematuria (principal); Z01.818 Encounter for other preprocedural examination; Z20.822 Contact with and (suspected) exposure to COVID-19
CPT/HCPCS: 36415; 80048; 85025; 86328

== ENCOUNTER 2020-11-20 06:21 | Day surgery (SDC) | payer MEDICARE, SELFPAY ==
[2020-11-14 14:22] VITALS: BMI 21.2
[2020-11-20] VITALS (13 sets, daily range): BP systolic 104–156; BP diastolic 56–85; PULSE 62–129; RESP 14–18; TEMP 36.3–42.7; O2SAT 96–100
[2020-11-20 07:40] LABS: Anion Gap 17.2 mEq/L (5-15); Blood Urea Nitrogen 48 mg/dl (9-20); Carbon Dioxide 13 mmol/L (22.0-30.0); Chloride 116 mmol/L (98-107); Creatinine Clearance Estimated 18 mL/min (50-200); Estimated Glomerular Filt Rate 18 ml/min (>60); GFR (African American) 22 ML/MIN (>60); Glucose 108 mg/dl (74-100); Potassium 5.2 mmoL/L (3.5-5.1); Sodium 141 mmol/L (136-145)
--- NOTE | 2020-11-20 07:55 | HMH.ANESCL ---
[facility] Anesthesia Checklist - Patient Identification Patient Identification: Arm Band - Structural Data Admitted From: Home Planned Operative Procedure/s: cystoscopy Consent for Planned Operative Procedure(s) Verified: Yes Verified Documents: Surgical Consent, History and Physical - NPO Status Verified Time NPO: 00:00 - Additional verifications Anesthesia Reactions: No Hx Blood Transfusions: No Blood Transfusion Reaction: Yes - Airway Assessment C-Spine Mobility Assessed: Yes (mp3) TMJ Mobility Assessed: Yes Dentition: Good Dentition - Neurological Assessment Level of Consciousness: Awake, Alert - Anesthesia Plan Anesthesia Risk discussed: Yes Anesthesia Plan: Verified ASA Class: III Anesthesia Type: General [facility] History I have reviewed the patient's past medical history: Yes Medical History: Reports:: Gastroesophageal Reflux Disease(GERD), Hyperlipidemia, Hypertension, Peripheral Vascular Disease, Renal Insufficiency, Transient Ischemic Attacks (TIA) Denies:: Cancer, Diabetes Mellitus Type 1, Diabetes Mellitus Type 2, Internal Pacemaker, MRSA, Seizures *Have you ever received a pneumonia vaccine?: Yes *Have you received a flu vaccine this season?: Yes Other Medical History: Reports: Anemia, Arthritis, Blood Transfusion Reaction Anesthesia experience/problems:: nac Laterality Cases: Right: Carpal Tunnel Release, Bilateral: Other Other Surgeries: Yes: Colonoscopy, EGD, Hernia Repair (bilateral inguinal), Other (gastrectomy 1976). No: Pacemaker Amputation: No Fractures: No - *Social History Last grade of school completed: 11th or 12th Smoking Status: Never smoker Alcohol Intake: never Alcohol Intake Frequency:: other Substance Use Type: denies use *Occupational Status:: retired Housing: house Household Members: spouse *Travel in the last 8 weeks: None Family Hx:: No significant family history
--- NOTE | 2020-11-20 08:51 | P.PN_ITS ---
[facility] Anesthesia Record Part I Intake, IV Amount: 700 Estimated blood loss (mL): 0 Urine output (mL): 0 Blood Pressure: 104/56 SaO2: 98 Pulse Rate: 100 Respiratory Rate: 14 Temperature: 97.5 F Patient is:: Drowsy Stable to PACU at:: 08:48
--- NOTE | 2020-11-20 09:27 | P.OP_ITS ---
Date of procedure: 11/20/20 Pre-op Diagnosis:: Gross hematuria Post-op Diagnosis:: Gross hematuria secondary to the prostatic friability Procedure performed:: Cystoscopy with fulguration of prostate Surgeon:: Darron Stephenson MD [employer]:: Other (aug[place] chinchilla) Anesthesia: GETA Estimated blood loss (mL): 0 Clinical Note:: 80-year-old white male with history of BPH has a recurrent gross hematuria. He presents for urologic management. Operative findings:: Bladder shows severe trabeculation with cellule formation. Prostatic urethra shows trilobar hyperplasia with area of the hemorrhage in the mid prostate around the 7 o'clock position. No active bleeding noted at this time. Operative note:: Patient taken to the operating room after informed consent was obtained. Was placed on the operating table in the supine position and general anesthesia administered. Preoperative antibiotics and sequential compression devices placed. He was then placed into the dorsal lithotomy position and prepped and draped in the standard surgical fashion. 22 Syrian cystoscope passed into the meatus but there was some stenosis noted. The urethra have been dilated with the 22, 24, 26, 28 and 30 Syrian [place] sounds distally. The 22 Reji can passed to the prostatic urethra which showed trilobar hyperplasia. The bladder was entered and examined in a systematic fashion. Again of note was severe trabeculation and cellule formation. There was a moderate sized median lobe extending inward. There is no evidence of any bladder tumors. There was clear efflux of urine from the ureter. The cystoscope then removed and the 26 Syrian resectoscope sheath passed into the urethra and the median lobe was fulgurated as well as the prostatic lobes laterally back to the be removed. Scope then removed and a catheter was placed with use of the catheter guide. Catheter irrigated well after placement. 20 cc were placed into the balloon. Patient transported to recovery in stable condition. He will go home with his Feldman catheter and is to remove it in 1 week. Condition: stable Disposition: PACU Specimens:: None Complications:: None
--- NOTE | 2020-11-21 08:36 | P.PN_ITS ---
[facility] Anesthesia Record Part II Discharge Time: 09:28 Destination: Surgical Day Care (OP Surgery) PACU nurse assessment reviewed?: Yes Patient Condition:: Good Anesthesia Complications:: None Swallowing reflex intact?: Yes Cyanosis?: No Blood Pressure: 147/85 Pulse Rate: 105 Temperature: 97.7 F Mental Status: Alert & Oriented Pain level:: 5 Nausea and/or vomitting:: None Intake, IV Amount: 0
[2020-11-21 08:37] VITALS: BP 147/85; PULSE 105; TEMP 36.5
== END 2020-11-20 10:40 | disposition home or self-care (01) ==
LOC: OR 06:23
PROVIDERS: PCP Family Medicine; Visit Provider Urology
PROC: 0TJB8ZZ Inspection of Bladder, Via Natural or Artificial Opening Endoscopic (ICD-10-PCS; CPT 52000; principal; 2020-11-20 08:15)
DX: R31.0 Gross hematuria (principal); E78.5 Hyperlipidemia, unspecified; I10 Essential (primary) hypertension; K21.9 Gastro-esophageal reflux disease without esophagitis; I73.9 Peripheral vascular disease, unspecified; N28.9 Disorder of kidney and ureter, unspecified; Z86.73 Personal history of transient ischemic attack (TIA), and cerebral infarction without residual deficits; Z87.39 Personal history of other diseases of the musculoskeletal system and connective tissue; Z79.899 Other long term (current) drug therapy
CPT/HCPCS: 53899; 80048; 96374; J2405

== ENCOUNTER → 2020-11-27 18:09 | Outpatient (CLI) | payer MEDICARE, SELFPAY ==
[2020-11-27 19:41] LABS: Chloride 116 mmol/L (98-107); Potassium 5.4 mmoL/L (3.5-5.1); Sodium 140 mmol/L (136-145)
[2020-11-27 19:43] LABS: Alanine Aminotransferase 11 U/L (12-78); Aspartate Amino Transferase 20 U/L (17-59); Blood Urea Nitrogen 32 mg/dl (9-20); Estimated Glomerular Filt Rate 18 ml/min (>60); GFR (African American) 21 ML/MIN (>60)
[2020-11-27 19:44] LABS: Albumin Level 3.9 g/dl (3.5-5.0); Albumin/Globulin Ratio 1.6 (1.1-1.8); Alkaline Phosphatase 117 U/L (38-126); Anion Gap 12.4 mEq/L (5-15); Bilirubin,Total 0.7 mg/dl (0.2-1.3); Carbon Dioxide 17 mmol/L (22.0-30.0); Globulin 2.5 g/dL (1.3-3.2); Glucose 104 mg/dl (74-100); Iron 144 ug/dL (49-181); Total Protein,Serum 6.4 g/dl (6.3-8.2)
[2020-11-27 20:15] LABS: Thyroid Stimulating Hormone 2.95 uIU/mL (0.465-4.68)
[2020-11-29 18:04] LABS: Erythropoietin 21.3 mIU/mL (2.6-18.5)
== END ==
PROVIDERS: Visit Provider Family Medicine
DX: D50.0 Iron deficiency anemia secondary to blood loss (chronic) (principal); R60.9 Edema, unspecified; N28.9 Disorder of kidney and ureter, unspecified; E78.5 Hyperlipidemia, unspecified
CPT/HCPCS: 80053; 82668; 83540; 84443

== ENCOUNTER → 2020-11-30 10:52 | Outpatient (CLI) | payer MEDICARE, SELFPAY ==
--- NOTE | 2020-11-30 10:58 | XR_ITS ---
PROCEDURE: XR CHEST 2V CLINICAL HISTORY: LT SIDED CHEST WALL PAIN COMPARISON: CR CXR2 CHEST-AP VIEW ONLY from 09/17/2014 CR CXR CHEST(2 VIEWS-NOT PORTABLE) from 04/04/[address] chest w con from 10/06/2017 FINDINGS: The cardiomediastinal silhouette and pulmonary vascularity are within normal limits. The lungs are clear without infiltrates, suspicious nodules, or pleural effusions. Multiple surgical clips are noted at the gastroesophageal junction. Multilevel degenerative changes of the visualized thoracic spine are noted. IMPRESSION: No acute cardiopulmonary process. Dictated by: Shruthi Grewal 11/30/2020 16:01 Shruthi Grewal in [place] 11/30/2020 16:01
== END ==
PROVIDERS: PCP Family Medicine; Visit Provider Family Medicine
DX: R07.9 Chest pain, unspecified (principal)
CPT/HCPCS: 71046

== ENCOUNTER → 2020-12-07 14:05 | Outpatient (CLI) | payer MEDICARE, SELFPAY | PROVIDERS: PCP Family Medicine; Visit Provider Family Medicine | DX: R07.9 Chest pain, unspecified (principal); R60.9 Edema, unspecified | CPT/HCPCS: 93306 ==

== ENCOUNTER → 2020-12-21 13:01 | Outpatient (CLI) | payer MEDICARE, SELFPAY ==
[2020-12-21 13:16] LABS: Microscopic, Urine URINE MICROSCOPIC (MICROSCOPIC)
[2020-12-21 13:49] LABS: Bilirubin,Urine Negative (Negative); Blood, Urine 3+ (Negative); Glucose,Urine (UA) Negative (Negative); Ketones,Urine Negative (Negative); Leukocyte Esterase,Urine 2+ (Negative); Nitrate,Urine Negative (Negative); Protein,Urine 2+ (Negative); Urobilinogen,Urine 0.2 EU/dl (0.2)
[2020-12-21 13:52] LABS: Appearance,Urine Turbid (Clear); Color,Urine Straw (Yellow)
[2020-12-21 14:04] LABS: WBC,Urine 20-50 #/hpf (0-3)
[2020-12-21 14:05] LABS: Bacteria,Urine 2+ /lpf; Mucus,Urine 1+ /lpf
[2020-12-21 14:35] LABS: Basophils % 0.5 % (0.1-2.0); Eosinophils # 0.3 K/mm3 (0.0-0.4); Eosinophils % 2.9 % (0.1-12.0); Hemoglobin 10.3 g/dL (14.1-18.0); Lymphocytes # 1.6 K/mm3 (0.7-4.5); Lymphocytes % 18.3 % (10-50); Mean Corpuscular HGB Conc 31.1 g/dL (31.8-35.4); Mean Corpuscular Hemoglobin 28.7 pg (27.0-31.2); Mean Corpuscular Volume 92.3 fl (80-94); Mean Platelet Volume 7.7 fl (7.4-10.4); Monocytes # 0.4 K/mm3 (0.1-1.0); Monocytes % 4.7 % (1.7-9.3); Neutrophils # 6.3 K/mm3 (1.8-7.8); Neutrophils % 73.6 % (37.0-80.0); Platelet Count 498 K/mm3 (142-424); Red Blood Count 3.58 M/mm3 (4.60-6.20); Red Cell Distribution Width 19.1 % (11.5-17.5); Reticulocyte % (Auto) 1.2 % (0.9-3.2); White Blood Count 8.6 K/mm3 (4.8-10.8)
[2020-12-21 14:42] LABS: Creatinine,Urine Random 57 mg/dL (Not Estab.)
[2020-12-21 15:01] LABS: Chloride 108 mmol/L (98-107); Potassium 4.2 mmoL/L (3.5-5.1); Sodium 140 mmol/L (136-145)
[2020-12-21 15:02] LABS: Albumin Level 4.8 g/dl (3.5-5.0)
[2020-12-21 15:04] LABS: Anion Gap 18.2 mEq/L (5-15); Blood Urea Nitrogen 39 mg/dl (9-20); Calcium 9.4 mg/dl (8.4-10.2); Carbon Dioxide 18 mmol/L (22.0-30.0); Estimated Glomerular Filt Rate 20 ml/min (>60); GFR (African American) 25 ML/MIN (>60); Glucose 106 mg/dl (74-100); Phosphorous 4.7 mg/dl (2.5-4.5)
[2020-12-21 15:07] LABS: Anion Gap 17.3 mEq/L (5-15); Blood Urea Nitrogen 41 mg/dl (9-20); Calcium 9.5 mg/dl (8.4-10.2); Carbon Dioxide 17 mmol/L (22.0-30.0); Chloride 110 mmol/L (98-107); Estimated Glomerular Filt Rate 20 ml/min (>60); GFR (African American) 25 ML/MIN (>60); Glucose 103 mg/dl (74-100); Potassium 4.3 mmoL/L (3.5-5.1); Sodium 140 mmol/L (136-145)
[2020-12-21 15:12] LABS: Total Iron Binding Capacity 404 ug/dL (261-462)
[2020-12-21 15:20] LABS: Intact Parathyroid Hormone 230.7 pg/mL (7.5-53.5)
[2020-12-21 15:47] LABS: 25-OH Vitamin D, Total 29.4 ng/mL (30-100)
[2020-12-21 15:49] LABS: Microalbumin/Creatinine Ratio 992.2
[2020-12-21 17:46] LABS: Folate > 20.00 ng/mL; Vitamin B12 > 1000 pg/mL (239-931)
[2020-12-21 18:09] LABS: Iron 30 ug/dL (49-181)
[2020-12-21 18:56] LABS: Ferritin 13.6 ng/ml (17.9-464)
[2020-12-23 17:14] LABS: Transferrin 316 mg/dL (177-329)
[2020-12-24 10:18] LABS: Calcium, Ionized 5.1 mg/dL (4.5-5.6)
[2020-12-29 10:12] LABS: 1,25 Dihydroxy Vitamin D 25 pg/mL (.); 1,25-Dihydroxy, Vitamin D-2 <10 pg/mL (.); 1,25-Dihydroxy, Vitamin D-3 25 pg/mL (.)
== END ==
PROVIDERS: Family Medicine; Internal Medicine Nephrology; Visit Provider Urology
DX: R31.0 Gross hematuria (principal); D50.0 Iron deficiency anemia secondary to blood loss (chronic); N18.4 Chronic kidney disease, stage 4 (severe); E55.9 Vitamin D deficiency, unspecified
CPT/HCPCS: 36415; 80048; 80069; 81001; 82043; 82306; 82330; 82570; 82607; 82652; 82728; 82746; 83540; 83550; 83970; 84155; 84466; 85025; 85044; 87086

== ENCOUNTER → 2020-12-27 15:00 | Outpatient (CLI) | payer MEDICARE, SELFPAY ==
--- NOTE | 2020-12-27 15:02 | US_ITS ---
PROCEDURE: US KIDNEY CLINICAL INDICATION: CKD STAGE 4 COMPARISON: US RUQ US RUQ-(ABD LTD)1ORGAN/QUAD/FU from 01/26/[address] ABDOMEN PELVIS WO CON from 09/06/2020 FINDINGS: The right kidney is 9 x 4 x 4 cm. Left kidney is 9 by by 5 cm. There is mild right hydronephrosis. Cortical thinning is noted on the right. There is dilatation of the left renal pelvis but the calices do not appear dilated. Cortical thinning noted on the left IMPRESSION: Right-sided hydronephrosis. Dilated left renal pelvis without calyceal dilatation. This raises the question of the left extrarenal pelvis Dictated by: Joshua Rubi MD 12/27/2020 16:31 Joshua Rubi MD in [place] 12/27/2020 16:31
== END ==
PROVIDERS: PCP Family Medicine; Visit Provider Family Medicine
DX: N18.4 Chronic kidney disease, stage 4 (severe) (principal)
CPT/HCPCS: 76770

== ENCOUNTER 2021-01-02 09:18 | Outpatient (CLI) | payer MEDICARE, SELFPAY ==
[2021-01-02 09:25] VITALS: BP 135/68; PULSE 67; RESP 20; O2SAT 100
[2021-01-02 10:10] VITALS: BP 145/71; PULSE 62; RESP 18
== END 2021-01-02 10:10 | disposition home or self-care (01) ==
LOC: INF 09:18
PROVIDERS: Visit Provider Internal Medicine Nephrology
DX: N18.4 Chronic kidney disease, stage 4 (severe); E87.5 Hyperkalemia; E87.2 Acidosis; D63.1 Anemia in chronic kidney disease
CPT/HCPCS: 96365; J1756

== ENCOUNTER → 2021-01-04 10:28 | Outpatient (CLI) | payer MEDICARE, SELFPAY | PROVIDERS: Visit Provider Urology | DX: R31.0 Gross hematuria (principal) | CPT/HCPCS: 87086; 87088; 87186 ==

== ENCOUNTER 2021-01-09 09:10 | Outpatient (CLI) | payer MEDICARE, SELFPAY ==
[2021-01-09 10:18] VITALS: BP 121/69; PULSE 70; RESP 17; TEMP 36.4; O2SAT 99
== END 2021-01-09 10:20 | disposition home or self-care (01) ==
LOC: INF 09:13
PROVIDERS: Visit Provider Internal Medicine Nephrology
DX: D63.1 Anemia in chronic kidney disease; N18.6 End stage renal disease; Z99.2 Dependence on renal dialysis
CPT/HCPCS: 96365; J1756

== ENCOUNTER → 2021-01-12 08:31 | Outpatient (CLI) | payer MEDICARE, SELFPAY ==
[2021-01-12 09:26] LABS: Basophils % 0.3 % (0.1-2.0); Eosinophils # 0.2 K/mm3 (0.0-0.4); Eosinophils % 2.2 % (0.1-12.0); Hematocrit 30.3 % (42.0-52.0); Hemoglobin 9.5 g/dL (14.1-18.0); Lymphocytes # 0.9 K/mm3 (0.7-4.5); Lymphocytes % 11.3 % (10-50); Mean Corpuscular HGB Conc 31.4 g/dL (31.8-35.4); Mean Corpuscular Hemoglobin 28.5 pg (27.0-31.2); Mean Corpuscular Volume 90.6 fl (80-94); Mean Platelet Volume 7.5 fl (7.4-10.4); Monocytes # 0.3 K/mm3 (0.1-1.0); Monocytes % 4.2 % (1.7-9.3); Neutrophils # 6.6 K/mm3 (1.8-7.8); Neutrophils % 81.9 % (37.0-80.0); Platelet Count 352 K/mm3 (142-424); Red Blood Count 3.35 M/mm3 (4.60-6.20); Red Cell Distribution Width 19.5 % (11.5-17.5); White Blood Count 8.1 K/mm3 (4.8-10.8)
[2021-01-12 09:34] LABS: Chloride 109 mmol/L (98-107); Sodium 138 mmol/L (136-145)
[2021-01-12 09:35] LABS: Albumin Level 4.1 g/dl (3.5-5.0); Potassium 4.4 mmoL/L (3.5-5.1)
[2021-01-12 09:37] LABS: Blood Urea Nitrogen 46 mg/dl (9-20); Estimated Glomerular Filt Rate 16 ml/min (>60); GFR (African American) 20 ML/MIN (>60)
[2021-01-12 09:38] LABS: Anion Gap 16.4 mEq/L (5-15); Calcium 8.7 mg/dl (8.4-10.2); Carbon Dioxide 17 mmol/L (22.0-30.0); Glucose 200 mg/dl (74-100); Phosphorous 3.9 mg/dl (2.5-4.5)
== END ==
PROVIDERS: Visit Provider Internal Medicine Nephrology
DX: N18.6 End stage renal disease (principal); D64.9 Anemia, unspecified
CPT/HCPCS: 36415; 80069; 85025

== ENCOUNTER 2021-01-16 09:05 | Outpatient (CLI) | payer MEDICARE, SELFPAY ==
[2021-01-16 09:40] VITALS: BP 131/64; PULSE 74; RESP 17; TEMP 36.9; O2SAT 94
[2021-01-16 10:25] VITALS: BP 132/69; PULSE 65; RESP 17; O2SAT 96
== END 2021-01-16 10:35 | disposition home or self-care (01) ==
LOC: INF 09:08
PROVIDERS: Visit Provider Internal Medicine Nephrology
DX: N18.6 End stage renal disease (principal); D63.1 Anemia in chronic kidney disease; Z99.2 Dependence on renal dialysis
CPT/HCPCS: 96365; J1756

== ENCOUNTER 2021-01-20 12:46 | Inpatient (IN) | payer MEDICARE, SELFPAY ==
--- NOTE | 2021-01-20 | ECG_ITS ---
APPROVED REPORT Exam: Resting ECG HR:83 bpm ECG Measurements Heart Rate 83 AXES OR 176 P 48 QRSd 76 QRS 26 QT 356 T 41 QTc 418 Conclusion Normal sinus rhythm Normal ECG Electronically signed by : Anup Maldonado, 01/21/2021 07:09:00
[2021-01-20 12:58] VITALS: BP 155/79; PULSE 84; RESP 24; TEMP 36.9; O2SAT 97; BMI 20.2
--- NOTE | 2021-01-20 13:20 | XR_ITS ---
PROCEDURE INFORMATION: Exam: XR Chest Exam date and time: 01/20/2021 1:20 PM Age: 80 years old Clinical indication: Shortness of breath; Additional info: SOA, right sided rales TECHNIQUE: Imaging protocol: XR of the chest. Views: 2 views. COMPARISON: CR XR CHEST 2V 11/30/2020 11:23 AM FINDINGS: Tubes, catheters and devices: Surgical clips in the epigastric region. Lungs: Right lower lobe airspace consolidation. Pleural spaces: Unremarkable. No pleural effusion. No pneumothorax. Heart/Mediastinum: Unremarkable. No cardiomegaly. Bones/joints: Unremarkable. IMPRESSION: Right lower lobe pneumonia.
--- NOTE | 2021-01-20 13:25 | HMH.PHAVTE ---
[facility] Pharmacy VTE Monitoring - Patient Demographics Admission date: 01/20/21 Report Date: 01/20/21 Time: 13:25 Allergies/Adverse Reactions: Patient Allergies No Known Allergies Allergy (Verified 01/04/21 09:24) - Prophylaxis VTE Prophylaxis Ordered?: Yes Types of VTE Prophylaxis: TEDS Knee High Location of Applied Device: Bilateral Lower Extremeties
--- NOTE | 2021-01-20 13:38 | HMH.HP ---
*Admission Date: 01/20/21 *Chief complaint: Shortness of breath, cough *History of present illness: 80 y.o. WM was seen in [facility] this AM with c/o cough, sob, tickling in throat. Productive cough. Does not feel well. Has been sick for about a week. Has chronic renal insufficiency and iron deficiency anemia. Prostate disease. Has been COVID 19 vaccinated (Moderna). In the officee he was SOA, and with temp of 100. Right sided rales were prominent. WBC was elevated 16,200. [facility] History Medical History: Reports:: Gastroesophageal Reflux Disease(GERD), Hyperlipidemia, Hypertension, Peripheral Vascular Disease, Renal Insufficiency, Transient Ischemic Attacks (TIA) (2013 x2), Urinary Tract Infection Denies:: Cancer, Diabetes Mellitus Type 1, Diabetes Mellitus Type 2, Internal Pacemaker, MRSA, Seizures *Have you ever received a pneumonia vaccine?: Yes *Have you received a flu vaccine this season?: Yes Other Medical History: Reports: Anemia, Arthritis, Blood Transfusion Reaction Laterality Cases: Right: Carpal Tunnel Release, Bilateral: Other Other Surgeries: Yes: No Previous Surgery, Colonoscopy, EGD, Hernia Repair (bilateral inguinal 2014), Other (gastrectomy 1976). No: Pacemaker Amputation: No Fractures: No - *Social History Smoking Status: Never smoker Alcohol Intake: never Alcohol Intake Frequency:: other Substance Use Type: denies use *Occupational Status:: retired Housing: house Household Members: none *Travel in the last 8 weeks: None Family Hx:: No significant family history (Father 74 y.o., Mother 81 y.o.), Diabetes, Other (3 brothers, 2 sisters, 1 son, 1 daughter) Review of Systems - Constitutional Reports body ache(s) - Eyes Denies change in vision - *Cardiovascular Reports shortness of breath with activity, Denies chest pain - *Respiratory Reports chest congestion, Reports cough, Reports shortness of breath, Reports shortness of breath with activity - *Gastrointestinal Denies abdominal pain, Denies change in stools - *Genitourinary Reports urinary hesitancy - *Musculoskeletal Reports decreased muscle mass - Integumentary/Breasts Denies unusual bruising - *Neurologic Denies seizure-like activity Meds Home Medications Medication Instructions Recorded Confirmed Type Ferrous Sulfate [Ferrous Sulfate 325 mg PO DAILY 11/14/20 01/20/21 History 325mg Tab] Finasteride [Proscar] 5 mg PO DAILY 11/14/20 01/20/21 History Oxybutynin Chloride 5 mg PO HS 01/20/21 01/20/21 History Sodium Bicarbonate 650 mg PO BID 01/20/21 01/20/21 History Tamsulosin HCl [Flomax 0.4mg 0.4 mg PO DAILY 01/20/21 01/20/21 History capsule] Allergies Allergy/AdvReac Type Severity Reaction Status Date / Time No Known Allergies Allergy Verified 01/04/21 09:24 Exam Vital signs and Labs for Last 24 Hours: Temp Pulse Resp BP Pulse Ox 98.4 F 84 24 155/79 H 97 01/20/21 12:58 01/20/21 12:58 01/20/21 12:58 01/20/21 12:58 01/20/21 12:58 I & O for Last 24 hours: Intake & Output 01/18/21 01/19/21 01/20/21 01/21/21 11:59 11:59 11:59 11:59 Weight 145 lb 1 oz - Constitutional moderate distress, thin, chronically ill appearing - *Routine HEENT Exam Head: Present: normocephalic Eye: Present: PERRL ENT: Present: mucous membranes dry - *Routine Neck Exam Present: JVD (slight?). Absent: carotid bruit - Routine Chest/Breast/Axilla Exam Chest wall: Present: tenderness - *Routine Respiratory Exam Present: decreased breath sounds, rales (prominent on the right), respiratory distress (mild) - *Routine Cardiovascular Exam Present: RRR - *Routine Abdominal Exam Present: soft (scaphoid) - *Routine Rectal Exam Rectal:: deferred - *Routine Genitalia Exam Genitalia:: normal male - *Routine Neurological Exam Present: alert, moving all extremities Assessment and Plan (1) Pneumonia Status: Acute Category: Medical Code(s): J18.9 - Pneumonia, unspecified or
[2021-01-20 13:45] LABS: Basophils # 0.1 K/mm3 (0-0.2); Basophils % 0.3 % (0.1-2.0); Eosinophils # 0.2 K/mm3 (0.0-0.4); Eosinophils % 0.9 % (0.1-12.0); Hematocrit 32.4 % (42.0-52.0); Hemoglobin 10.3 g/dL (14.1-18.0); Lymphocytes # 1.6 K/mm3 (0.7-4.5); Lymphocytes % 8.1 % (10-50); Mean Corpuscular HGB Conc 31.9 g/dL (31.8-35.4); Mean Corpuscular Hemoglobin 27.9 pg (27.0-31.2); Mean Corpuscular Volume 87.5 fl (80-94); Mean Platelet Volume 7.4 fl (7.4-10.4); Monocytes # 0.7 K/mm3 (0.1-1.0); Monocytes % 3.3 % (1.7-9.3); Neutrophils # 17.1 K/mm3 (1.8-7.8); Neutrophils % 87.4 % (37.0-80.0); Platelet Count 603 K/mm3 (142-424); Red Cell Distribution Width 19.8 % (11.5-17.5); White Blood Count 19.6 K/mm3 (4.8-10.8)
[2021-01-20 13:49] LABS: Chloride 98 mmol/L (98-107); Sodium 137 mmol/L (136-145)
[2021-01-20 13:50] LABS: MANUAL DIFFERENTIAL MANUAL DIFFERENTIAL (MANUAL DIFF); Potassium 3.9 mmoL/L (3.5-5.1)
[2021-01-20 13:52] LABS: Alanine Aminotransferase 47 U/L (12-78); Alkaline Phosphatase 260 U/L (38-126); Anion Gap 19.9 mEq/L (5-15); Aspartate Amino Transferase 41 U/L (17-59); Bilirubin,Total 0.5 mg/dl (0.2-1.3); Blood Urea Nitrogen 53 mg/dl (9-20); Carbon Dioxide 23 mmol/L (22.0-30.0); Creatinine Clearance Estimated 13 mL/min (50-200); Estimated Glomerular Filt Rate 13 ml/min (>60); GFR (African American) 16 ML/MIN (>60)
[2021-01-20 13:53] LABS: Albumin Level 4.3 g/dl (3.5-5.0); Albumin/Globulin Ratio 1.2 (1.1-1.8); Calcium 9.5 mg/dl (8.4-10.2); Globulin 3.7 g/dL (1.3-3.2); Glucose 157 mg/dl (74-100)
[2021-01-20 13:56] LABS: Lactic Acid 2.4 mmol/L (0.7-2.1)
[2021-01-20 14:10] LABS: Lymphocytes % 18 % (10-50); Monocytes % 4 % (2-9); Neutrophils % 78 % (42-76); Platelet Estimate Moderate Increase; RBC Morphology Normal; Total Cells Counted 100
[2021-01-20 14:25] LABS: Thyroid Stimulating Hormone 0.91 uIU/mL (0.465-4.68)
[2021-01-20 16:00] VITALS: PULSE 70
[2021-01-20 17:22] LABS: Reflex Lactic Add Lactic Reflex
[2021-01-20 17:23] VITALS: PULSE 84; RESP 24; O2SAT 97
[2021-01-20 17:54] LABS: Creatine Kinase 142 U/L (55-170)
[2021-01-20 17:57] LABS: Lactic Acid Follow Up (RFLX 1) 0.9 mmol/L (0.7-2.1)
[2021-01-20 18:08] LABS: CKMB Relative Index 0.6 U/L (0-4.0); Creatine Kinase MB 0.8 ng/ml (0.0-2.03)
[2021-01-20 19:57] VITALS: BP 143/75; PULSE 72; RESP 17; TEMP 37.6; O2SAT 97
[2021-01-20 20:00] VITALS: PULSE 60
[2021-01-21] VITALS (13 sets, daily range): BP systolic 125–131; BP diastolic 57–71; PULSE 50–70; RESP 16–22; TEMP 36.9–37.7; O2SAT 95–100; BMI 21.1
--- NOTE | 2021-01-21 03:03 | PC.NURSE ---
A&OX4. PT TOLERATING 2LNC WELL. PT HAS HAD NO C/O PAIN, SOA/COUGH THIS SHIFT. PT WALKED FROM BED TO BR INDEPENDENTLY, SEEMED SLIGHTLY SOA UPON ASSESSMENT. PT HAS SLEPT MAJORITY OF SHIFT. NO C/O THUS FAR. VSS WILL CONTINUE TO MONITOR.
--- NOTE | 2021-01-21 09:15 | HMH.ACPN2 ---
Internal Medicine - PN: Subj *Date: 01/21/21 *Time: 09:15 Interval history: He states that he does not feel much better than yesterday. He was able to sleep a little. He notices some pain on the right side of his chest which corresponds with his rales and infiltrate. Exam Vital signs and Labs for Last 24 Hours: Temp Pulse Resp BP Pulse Ox 98.4 F 69 20 130/64 100 01/21/21 08:00 01/21/21 08:00 01/21/21 08:00 01/21/21 08:00 01/21/21 08:00 Laboratory Results - last 24 hr 01/20/21 13:20: WBC 19.6 H, RBC 3.70 L, Hgb 10.3 L, Hct 32.4 L, MCV 87.5, MCH 27.9, MCHC 31.9, RDW 19.8 H, Plt Count 603 H, MPV 7.4, Neut % (Auto) 87.4 H, Lymph % (Auto) 8.1 L, [place] % (Auto) 3.3, Eos % (Auto) 0.9, Baso % (Auto) 0.3, Neut # (Auto) 17.1 H, Lymph # (Auto) 1.6, [place] # (Auto) 0.7, Eos # (Auto) 0.2, Baso # (Auto) 0.1, Total Counted 100, Neutrophils % (Manual) 78 H, Lymphocytes % (Manual) 18, Monocytes % (Manual) 4, Platelet Estimate Moderate increase, RBC Morphology Normal 01/20/21 13:20: Sodium 137, Potassium 3.9, Chloride 98, Carbon Dioxide 23, Anion Gap 19.9 H, BUN 53 H, Creatinine 4.40 H, Estimated Creat Clear 13, Estimated GFR 13 L*, Est GFR ( Amer) 16 L*, Glucose 157 H, Calcium 9.5, Total Bilirubin 0.5, AST 41, ALT 47, Alkaline Phosphatase 260 H, Total Protein 8.0, Albumin 4.3, Globulin 3.7 H, Albumin/Globulin Ratio 1.2, TSH 0.91 01/20/21 13:20: Lactate 2.4 H 01/20/21 13:20: Total Creatine Kinase 142, CK-MB (CK-2) 0.8, CK-MB (CK-2) Rel Index 0.6, Troponin I 0.10 H 01/20/21 17:38: Lactate 0.9 I & O for Last 24 hours: Intake & Output 01/18/21 01/19/21 01/20/21 01/21/21 11:59 11:59 11:59 11:59 Intake Total 2724 / 2724 Output Total 1000 / 1000 Balance 1724 / 1724 Weight 151 lb 1 oz Microbiology Reports for the Last 24 Hours: Microbiology 01/20/21 14:11 Nasopharyngeal Coronavirus COVID-19 PCR - Final - Constitutional no acute distress - *Routine HEENT Exam Head: Present: normocephalic ENT: Present: mucous membranes moist - *Routine Neck Exam Absent: JVD - Routine Chest/Breast/Axilla Exam Chest wall: Absent: tenderness (Complains of right-sided discomfort) - *Routine Respiratory Exam Present: rales (Prominent at the right base.) - *Routine Cardiovascular Exam Present: RRR - *Routine Abdominal Exam Absent: tenderness - *Routine Extremities Exam Absent: edema - *Routine Neurological Exam Present: alert, oriented X3 Assessment and Plan (1) Pneumonia Status: Acute Category: Medical Code(s): J18.9 - Pneumonia, unspecified organism (2) Iron deficiency anemia Status: Acute Category: Medical Code(s): D50.9 - Iron deficiency anemia, unspecified (3) Renal insufficiency Status: Acute Category: Medical Code(s): N28.9 - Disorder of kidney and ureter, unspecified (4) Hypertension Status: Acute Category: Medical Code(s): I10 - Essential (primary) hypertension - Assessment and plan all Dx Assessment and Plan for all problems:: Add DuoNeb treatments. Awaiting morning lab.
--- NOTE | 2021-01-21 09:45 | PC.NURSE ---
Sputum induction completed with HHN tx, no sputum produced. Pt has dry cough and states he has nothing to cough up. Pt verbalized understanding to continue coughing and if sample produced to leave in cup at bedside.
[2021-01-21 10:08] LABS: Anion Gap 10.7 mEq/L (5-15); Blood Urea Nitrogen 44 mg/dl (9-20); Carbon Dioxide 24 mmol/L (22.0-30.0); Chloride 101 mmol/L (98-107); Creatinine Clearance Estimated 15 mL/min (50-200); Estimated Glomerular Filt Rate 15 ml/min (>60); GFR (African American) 19 ML/MIN (>60); Glucose 146 mg/dl (74-100); Potassium 3.7 mmoL/L (3.5-5.1); Sodium 132 mmol/L (136-145)
[2021-01-21 10:11] LABS: Calcium 8.1 mg/dl (8.4-10.2)
[2021-01-21 10:12] LABS: Basophils % 0.2 % (0.1-2.0); Eosinophils # 0.2 K/mm3 (0.0-0.4); Eosinophils % 1.9 % (0.1-12.0); Hematocrit 26.3 % (42.0-52.0); Lymphocytes % 8.6 % (10-50); Mean Corpuscular HGB Conc 31.5 g/dL (31.8-35.4); Mean Corpuscular Volume 88.7 fl (80-94); Mean Platelet Volume 7.4 fl (7.4-10.4); Monocytes # 0.5 K/mm3 (0.1-1.0); Monocytes % 4.5 % (1.7-9.3); Neutrophils % 84.8 % (37.0-80.0); Platelet Count 454 K/mm3 (142-424); Red Blood Count 2.96 M/mm3 (4.60-6.20); Red Cell Distribution Width 19.5 % (11.5-17.5); White Blood Count 11.8 K/mm3 (4.8-10.8)
[2021-01-21 10:21] LABS: Hemoglobin 8.3 g/dL (14.1-18.0)
--- NOTE | 2021-01-21 12:51 | HMH.PHAINT ---
MEDICATION RECONCILIATION COMPLETED ON PATIENT USING LIST FROM [facility] OFFICE, EXTERNAL FILL HISTORY, AND LIST FROM UROLOGY. -BELKIS DAVIDSOND
--- NOTE | 2021-01-21 13:47 | PC.NURSE ---
PT IS RESTING IN BED. TOLERATED A SHOWER THIS SHIFT. PT WAS UP IN THE CHAIR FOR SEVERAL HOURS THIS SHIFT. EATING AND DRINKING WELL. LUNG SOUNDS DIMINISHED WITH PROMINENT CRACKLES IN THE RT BASES. ROOM AIR SATURATION 95% ABDOMEN SOFT/NON TENDER WITH ACTIVE BOWEL SOUNDS. VSS. WILL CONTINUE TO MONITOR.
[2021-01-22] VITALS (12 sets, daily range): BP systolic 109–137; BP diastolic 54–64; PULSE 50–80; RESP 16–20; TEMP 36.8–37.1; O2SAT 95–98; BMI 21.7; BMI 21.6
--- NOTE | 2021-01-22 03:45 | PC.NURSE ---
A&OX4. PT TOLERATING RA WELL. PT HAS HAD NO C/O PAIN/NA/VO/ OR COUGH THIS SHIFT. PT HAS SLEPT T/O NIGHT. DONE VERY WELL. VS WILL CONTINUE TO MONITOR.
--- NOTE | 2021-01-22 07:54 | HMH.ACPN2 ---
<Andreia Brooks - Last Filed: 01/22/21 08:04> Internal Medicine - PN: Subj *Date: 01/22/21 *Time: 08:04 Interval history: Patient states he may feel a little bit better this a.m. He states he was able to sleep a little as well. He is able to eat without nausea. His bowels did move last night he describes it is black due to the iron. He has had difficulty with voiding and has had some lower abdominal discomfort. He states he usually takes Flomax and Proscar which he has not been receiving. Will restart. He denies chest pain. He is still somewhat short of breath and his cough has improved. O2 sats are 95 to 96% on room air. Exam Vital signs and Labs for Last 24 Hours: Temp Pulse Resp BP Pulse Ox 98.5 F 55 L 20 114/64 96 01/22/21 03:51 01/22/21 06:28 01/22/21 03:51 01/22/21 03:51 01/22/21 06:28 Laboratory Results - last 24 hr 01/21/21 09:48: WBC 11.8 H D, RBC 2.96 L, Hgb 8.3 L D, Hct 26.3 L, MCV 88.7, MCH 28.0, MCHC 31.5 L, RDW 19.5 H, Plt Count 454 H, MPV 7.4, Neut % (Auto) 84.8 H, Lymph % (Auto) 8.6 L, [place] % (Auto) 4.5, Eos % (Auto) 1.9, Baso % (Auto) 0.2, Neut # (Auto) 10.0 H, Lymph # (Auto) 1.0, [place] # (Auto) 0.5, Eos # (Auto) 0.2, Baso # (Auto) 0.0 01/21/21 09:48: Sodium 132 L, Potassium 3.7, Chloride 101, Carbon Dioxide 24, Anion Gap 10.7, BUN 44 H, Creatinine 3.80 H, Estimated Creat Clear 15, Estimated GFR 15 L*, Est GFR ( Amer) 19 L*, Glucose 146 H, Calcium 8.1 L D I & O for Last 24 hours: Intake & Output 01/19/21 01/20/21 01/21/21 01/22/21 11:59 11:59 11:59 11:59 Intake Total 2724 / 2724 2839 / 2839 Output Total 1000 / 1000 1100 / 1100 Balance 1724 / 1724 1739 / 1739 Weight 151 lb 1 oz 155 lb 1 oz - Constitutional no acute distress Comments: Sitting up in a chair eating his breakfast. He is somewhat dyspneic with extended conversation. - *Routine Respiratory Exam Present: crackles (Right mid to lower chest posteriorly) - *Routine Cardiovascular Exam Present: RRR (Monitor showing sinus rhythm in the 70s) - *Routine Abdominal Exam Present: soft, normoactive bowel sounds, tenderness (Suprapubic area). Absent: distended - *Routine Extremities Exam Absent: edema, calf tenderness - *Routine Neurological Exam Present: alert, oriented X3 Assessment and Plan (1) Pneumonia Status: Acute Category: Medical Code(s): J18.9 - Pneumonia, unspecified organism (2) Iron deficiency anemia Status: Acute Category: Medical Code(s): D50.9 - Iron deficiency anemia, unspecified (3) Renal insufficiency Status: Acute Category: Medical Code(s): N28.9 - Disorder of kidney and ureter, unspecified (4) Hypertension Status: Acute Category: Medical Code(s): I10 - Essential (primary) hypertension (5) Dysuria Status: Acute Category: Medical Code(s): R30.0 - Dysuria - Assessment and plan all Dx Assessment and Plan for all problems:: We will restart Proscar and Flomax. Will check urinalysis. We will also start Zithromax. Sputum culture has not been collected as yet. Continue with duo nebs. Fluids encouraged. <Joe Shaffer - Last Filed: 01/22/21 08:50> Internal Medicine - PN: Subj *Date: 01/22/21 *Time: 08:49 Exam Vital signs and Labs for Last 24 Hours: Temp Pulse Resp BP Pulse Ox 98.2 F 65 18 119/54 L 96 01/22/21 08:00 01/22/21 08:00 01/22/21 08:00 01/22/21 08:00 01/22/21 08:00 Laboratory Results - last 24 hr 01/21/21 09:48: WBC 11.8 H D, RBC 2.96 L, Hgb 8.3 L D, Hct 26.3 L, MCV 88.7, MCH 28.0, MCHC 31.5 L, RDW 19.5 H, Plt Count 454 H, MPV 7.4, Neut % (Auto) 84.8 H, Lymph % (Auto) 8.6 L, [place] % (Auto) 4.5, Eos % (Auto) 1.9, Baso % (Auto) 0.2, Neut # (Auto) 10.0 H, Lymph # (Auto) 1.0, [place] # (Auto) 0.5, Eos # (Auto) 0.2, Baso # (Auto) 0.0 01/21/21 09:48: Sodium 132 L, Potassium 3.7, Chloride 101, Carbon Dioxide 24, Anion Gap 10.7, BUN 44 H, Creatinine 3.80 H, Estimated Creat Clear 15, Estimated GFR 15 L*, Est GFR (
[2021-01-22 09:19] LABS: Microscopic, Urine URINE MICROSCOPIC (MICROSCOPIC)
[2021-01-22 09:21] LABS: Appearance,Urine CLEAR (Clear); Bilirubin,Urine Negative (Negative); Blood, Urine 2+ (Negative); Color,Urine YELLOW (Yellow); Glucose,Urine (UA) 1+ (Negative); Ketones,Urine Negative (Negative); Leukocyte Esterase,Urine 3+ (Negative); Nitrate,Urine Negative (Negative); Protein,Urine 1+ (Negative); Urobilinogen,Urine 0.2 EU/dl (0.2)
[2021-01-22 09:29] LABS: WBC,Urine TNTC #/hpf (0-3)
[2021-01-22 09:30] LABS: Bacteria,Urine Trace /lpf
--- NOTE | 2021-01-22 13:40 | DIET.NUTRFU ---
Addendum entered by Catalina Ghosh 01/24/21 14:33: PO intakes 50-75%, weight stable, bowels normal. Renal function stable, labs slightly decreased. Daily protein supplement altered to Breeze per pt's preference, no other changes nutritional care plan at this time, continuing to monitor. Original Note: Pt with severe protein calorie malnutrition rt CKD with recent weight loss 16% BW. Pt states he has completely lost his appetite and nothing has tasted good for months. Pt and requested liberalized diet, renal function remains very poor. Pt/ given diet edu/counseling for malnutrition with CKD and Iron deficiency anemia. Encouraged them to prioritize adequate intakes while eating as little salt as possible. He is eating about 75% t/o stay so far. Diet partially liberalized from 2g Na to 3g Na at this time and daily protein shake added to order, will monitor and alter as indicated.
--- NOTE | 2021-01-22 17:32 | PC.NURSE ---
PT IS SITTING UP IN THE CHAIR WITH FAMILY IN THE ROOM . ALERT AN ORIENTED X4. PT WAS COMPLAINING OF SOME ABDOMINAL DISCOMFORT AND NAUSEA EARLIER THIS MORNING BUT HE STATES HE FEELS BETTER THIS AFTERNOON. LUNG SOUNDS DIMINISHED WITH CRACKLES IN THE RIGHT BASES. PT STATES HE HAS HAD A COUPLE OF LOOSE BOWEL MOVEMENTS THIS SHIFT. O2 SATURATION 94-96% ON ROOM AIR. EATING AND DRINKING WELL. WILL CONTINUE TO MONITOR.
[2021-01-23] VITALS (12 sets, daily range): BP systolic 105–149; BP diastolic 55–102; PULSE 60–145; RESP 16–28; TEMP 36.6–36.9; O2SAT 93–97; BMI 21.4
--- NOTE | 2021-01-23 00:57 | PC.NURSE ---
PT. HAS NOT C/O PAIN, N/V/D, DIZZINESS OR SOA. AMBULATES INDEPENDENTLY. HAS NOT HAD EPISODE OF LOOSE BM TODAY. RESTING IN BED WITH EYES CLOSED AT THIS TIME. REPORT GIVEN TO Rose ESPINOZA RN.
[2021-01-23 07:25] LABS: Basophils % 0.2 % (0.1-2.0); Eosinophils # 0.4 K/mm3 (0.0-0.4); Eosinophils % 4.5 % (0.1-12.0); Hemoglobin 8.2 g/dL (14.1-18.0); Lymphocytes # 1.2 K/mm3 (0.7-4.5); Lymphocytes % 12.4 % (10-50); Mean Corpuscular HGB Conc 31.7 g/dL (31.8-35.4); Mean Corpuscular Hemoglobin 28.2 pg (27.0-31.2); Mean Platelet Volume 7.4 fl (7.4-10.4); Monocytes # 0.5 K/mm3 (0.1-1.0); Monocytes % 5.2 % (1.7-9.3); Neutrophils # 7.2 K/mm3 (1.8-7.8); Neutrophils % 77.7 % (37.0-80.0); Platelet Count 475 K/mm3 (142-424); Red Blood Count 2.92 M/mm3 (4.60-6.20); Red Cell Distribution Width 19.4 % (11.5-17.5); White Blood Count 9.3 K/mm3 (4.8-10.8)
[2021-01-23 07:31] LABS: Anion Gap 13.8 mEq/L (5-15); Blood Urea Nitrogen 38 mg/dl (9-20); Calcium 8.4 mg/dl (8.4-10.2); Carbon Dioxide 22 mmol/L (22.0-30.0); Chloride 103 mmol/L (98-107); Creatinine Clearance Estimated 17 mL/min (50-200); Estimated Glomerular Filt Rate 18 ml/min (>60); GFR (African American) 21 ML/MIN (>60); Glucose 182 mg/dl (74-100); Potassium 3.8 mmoL/L (3.5-5.1); Sodium 135 mmol/L (136-145)
--- NOTE | 2021-01-23 08:22 | HMH.ACPN2 ---
<Andreia Brooks - Last Filed: 01/23/21 08:22> Internal Medicine - PN: Subj *Date: 01/23/21 *Time: 08:22 Interval history: Patient states he feels better. He states he has difficulty sleeping in the hospital but did better last night. He feels that he is not as dyspneic and continues with a dry cough. He is eating well. He sits up in a chair frequently and tolerates without dizziness. He voids frequently and still has dysuria. He did have some diarrhea stool yesterday but none since. Laboratory data this morning show white blood cell count of 9300 with a hemoglobin of 8.2 and hematocrit of 26. Blood chemistries show sodium of 135 and potassium of 3.8. BUN is 38 and creatinine is 3.4. Urine culture results are pending. Blood culture shows no growth after 48 hours. Dietary note as follows: Pt with severe protein calorie malnutrition rt CKD with recent weight loss 16% BW. Pt states he has completely lost his appetite and nothing has tasted good for months. Pt and requested liberalized diet, renal function remains very poor. Pt/ given diet edu/counseling for malnutrition with CKD and Iron deficiency anemia. Encouraged them to prioritize adequate intakes while eating as little salt as possible. He is eating about 75% t/o stay so far. Diet partially liberalized from 2g Na to 3g Na at this time and daily protein shake added to order, will monitor and alter as indicated. Exam Vital signs and Labs for Last 24 Hours: Temp Pulse Resp BP Pulse Ox 98.1 F 61 18 133/55 L 94 L 01/23/21 03:57 01/23/21 06:40 01/23/21 03:57 01/23/21 03:57 01/23/21 06:40 Laboratory Results - last 24 hr 01/22/21 09:10: Urine Color Yellow, Urine Appearance Clear, Urine pH 6.0, Ur Specific [place] 1.020, Urine Protein 1+, Urine Glucose (UA) 1+, Urine Ketones Negative, Urine Blood 2+, Urine Nitrate Negative, Urine Bilirubin Negative, Urine Urobilinogen 0.2, Ur Leukocyte Esterase 3+ A, Urine RBC None, Urine WBC Tntc, Ur Squamous Epith Cells None, Urine Bacteria Trace 01/23/21 07:00: WBC 9.3, RBC 2.92 L, Hgb 8.2 L, Hct 26.0 L, MCV 89.0, MCH 28.2, MCHC 31.7 L, RDW 19.4 H, Plt Count 475 H, MPV 7.4, Neut % (Auto) 77.7, Lymph % (Auto) 12.4, [place] % (Auto) 5.2, Eos % (Auto) 4.5, Baso % (Auto) 0.2, Neut # (Auto) 7.2, Lymph # (Auto) 1.2, [place] # (Auto) 0.5, Eos # (Auto) 0.4, Baso # (Auto) 0.0 01/23/21 07:00: Sodium 135 L, Potassium 3.8, Chloride 103, Carbon Dioxide 22, Anion Gap 13.8, BUN 38 H, Creatinine 3.40 H, Estimated Creat Clear 17, Estimated GFR 18 L*, Est GFR ( Amer) 21 L, Glucose 182 H, Calcium 8.4 I & O for Last 24 hours: Intake & Output 01/20/21 01/21/21 01/22/21 01/23/21 11:59 11:59 11:59 11:59 Intake Total 2724 / 2724 3079 / 3079 2569 / 2569 Output Total 1000 / 1000 1100 / 1100 780 / 780 Balance 1724 / 1724 1978 / 1978 1789 / 1789 Weight 151 lb 1 oz 155 lb 1 oz 153 lb 3 oz Microbiology Reports for the Last 24 Hours: Microbiology 01/20/21 13:45 Blood Blood Culture - Preliminary NO GROWTH AFTER 48 HOURS 01/20/21 13:20 Blood Blood Culture - Preliminary NO GROWTH AFTER 48 HOURS - Constitutional no acute distress Comments: Sitting up in a chair and has completed his breakfast. He has no dyspnea with talking today. - *Routine Respiratory Exam Present: crackles (In the right basis) - *Routine Cardiovascular Exam Present: RRR (Monitor showing sinus rhythm in the 80s) - *Routine Abdominal Exam Present: soft, normoactive bowel sounds. Absent: tenderness - *Routine Extremities Exam Absent: edema, calf tenderness - *Routine Neurological Exam Present: alert, oriented X3 Assessment and Plan (1) CAP (community acquired pneumonia) Status: Acute Qualifiers: Laterality: right Lung location: lower lobe of lung Qualified Code(s): J18.9 - Pneumonia, unspecified organism Category: Medical Code(s): J18.9 - Pneumonia, unspecified o
--- NOTE | 2021-01-23 08:25 | HMH.ACPN ---
Internal Medicine - PN: Subj *Date: 01/23/21 *Time: 08:25 Exam Vital signs and Labs for Last 24 Hours: Temp Pulse Resp BP Pulse Ox 98.1 F 61 18 133/55 L 94 L 01/23/21 03:57 01/23/21 06:40 01/23/21 03:57 01/23/21 03:57 01/23/21 06:40 Laboratory Results - last 24 hr 01/22/21 09:10: Urine Color Yellow, Urine Appearance Clear, Urine pH 6.0, Ur Specific [place] 1.020, Urine Protein 1+, Urine Glucose (UA) 1+, Urine Ketones Negative, Urine Blood 2+, Urine Nitrate Negative, Urine Bilirubin Negative, Urine Urobilinogen 0.2, Ur Leukocyte Esterase 3+ A, Urine RBC None, Urine WBC Tntc, Ur Squamous Epith Cells None, Urine Bacteria Trace 01/23/21 07:00: WBC 9.3, RBC 2.92 L, Hgb 8.2 L, Hct 26.0 L, MCV 89.0, MCH 28.2, MCHC 31.7 L, RDW 19.4 H, Plt Count 475 H, MPV 7.4, Neut % (Auto) 77.7, Lymph % (Auto) 12.4, [place] % (Auto) 5.2, Eos % (Auto) 4.5, Baso % (Auto) 0.2, Neut # (Auto) 7.2, Lymph # (Auto) 1.2, [place] # (Auto) 0.5, Eos # (Auto) 0.4, Baso # (Auto) 0.0 01/23/21 07:00: Sodium 135 L, Potassium 3.8, Chloride 103, Carbon Dioxide 22, Anion Gap 13.8, BUN 38 H, Creatinine 3.40 H, Estimated Creat Clear 17, Estimated GFR 18 L*, Est GFR ( Amer) 21 L, Glucose 182 H, Calcium 8.4 I & O for Last 24 hours: Intake & Output 01/20/21 01/21/21 01/22/21 01/23/21 23:59 23:59 23:59 23:59 Intake Total 605 / 605 3079 / 3079 2599 / 2599 2088 / 2088 Output Total 300 / 500 1000 / 1100 1075 / 1075 505 / 505 Balance 305 / 105 2078 1524 / 1524 1584 / 1584 Weight 65.799 kg 68.521 kg 70 kg 69.485 kg Microbiology Reports for the Last 24 Hours: Microbiology 01/20/21 13:45 Blood Blood Culture - Preliminary NO GROWTH AFTER 48 HOURS 01/20/21 13:20 Blood Blood Culture - Preliminary NO GROWTH AFTER 48 HOURS Assessment and Plan (1) CAP (community acquired pneumonia) Status: Acute Qualifiers: Qualified Code(s): J18.9 - Pneumonia, unspecified organism Category: Medical Code(s): J18.9 - Pneumonia, unspecified organism (2) Iron deficiency anemia Status: Acute Category: Medical Code(s): D50.9 - Iron deficiency anemia, unspecified (3) Renal insufficiency Status: Acute Category: Medical Code(s): N28.9 - Disorder of kidney and ureter, unspecified (4) Hypertension Status: Acute Category: Medical Code(s): I10 - Essential (primary) hypertension (5) Dysuria Status: Acute Category: Medical Code(s): R30.0 - Dysuria The patient's infection will respond to the chosen ABx?: Yes Is the patient receiving the right drug, dose, and route?: Yes Could a more targeted ABx be ordered?: No (CONTINUE FOR PNEUMONIA)
--- NOTE | 2021-01-23 08:48 | XR_ITS ---
PROCEDURE: XR CHEST 2V CLINICAL HISTORY: RLL pneumonia COMPARISON: CR CXR CHEST(2 VIEWS-NOT PORTABLE) from 04/04/[address] chest w con from 10/06/2017 CR XR CHEST 2V from 11/30/2020 CR XR CHEST 2V from 01/20/2021 FINDINGS: The cardiomediastinal silhouette and pulmonary vascularity are within normal limits. Right lower lobe pneumonia is once again noted with some increasing consolidation along the superior margin of the infiltrate. The left lung is clear. Atelectatic changes are present in the right lung base. No acute bony abnormalities. IMPRESSION: Right lower lobe pneumonia slightly worse along the superior margin of the area consolidation Dictated by: Joshua Rubi MD 01/23/2021 10:17 Joshua Rubi MD in [place] 01/23/2021 10:17
--- NOTE | 2021-01-23 16:04 | PC.NURSE ---
Addendum entered by Fatuma Abdi RN 01/23/21 16:10: Pt has completed 50-75% of his meals thus far. Original Note: No acute changes. Pt pleasant, alert and oriented x4. Lungs noted to be diminished throughout. Remains on room air. Denies being SOA. PT does have an occasional cough that he describes as hacking , is non-productive. Nursing have spoke w/ RT about inducing sputum for collection. HR remains regular. Abdomen soft, non-tender w/ active BS in all quads. Pt reports episode of diarrhea this AM followed w/ nausea after infusion of zithromax, but states he did not feel like he needed medication for this. Voiding w/o difficulty. LLE noted to be edematous, educated pt in propping feet to aid in decrease swelling. Pt has sat up to chair most of shift. Ambulates independently w/ in room, no safety concerns. Pt denies pain. No concerns voiced this shift. Call mary ann w/in reach.
--- NOTE | 2021-01-23 16:10 | PC.NURSE ---
No acute changes. Pt pleasant, alert and oriented x4. Lungs noted to be diminished throughout. Remains on room air. Denies being SOA. PT does have an occasional cough that he describes as hacking , is non-productive. Nursing have spoke w/ RT about inducing sputum for collection. HR remains regular. Abdomen soft, non-tender w/ active BS in all quads. Pt reports episode of diarrhea this AM followed w/ nausea after infusion of zithromax, but states he did not feel like he needed medication for this. Voiding w/o difficulty. LLE noted to be edematous, educated pt in propping feet to aid in decrease swelling. Pt has sat up to chair most of shift. Ambulates independently w/ in room, no safety concerns. Has at 50-75% of meals this shift. Pt denies pain. No concerns voiced this shift. Call mary ann w/in reach.
--- NOTE | 2021-01-23 19:12 | ECG_ITS ---
APPROVED REPORT Exam: Resting ECG HR:125 bpm ECG Measurements Heart Rate 125 AXES QRSd 82 QRS 37 QT 268 T 18 QTc 386 Conclusion Atrial fibrillation with rapid ventricular response Moderate voltage criteria for LVH, may be normal variant ST depression, consider subendocardial injury or digitalis effect Abnormal ECG Electronically signed by : Anup Maldonado, 01/27/2021 07:33:53
[2021-01-23 20:14] LABS: Troponin I 0.06 ng/ml (0.00-0.034)
--- NOTE | 2021-01-23 20:25 | PC.NURSE ---
1904 - Had returned to bed after going to bathroom, wine steward/stewardess called and stated pt was tachy. Checked on pt, he reported being SOA but denied pain or a racing feeling in his chest. Nurse checked tely strip and found rate to be irregular. Denies history of A-fib. Pt sitting up in bed resting. VS - 149/102 135 bpm 98.5 28 RR 98 RA Stat EKG ordered for rhythm change, RT made aware. 1923 - Dr. Chaidez paged. 1924 - Spoke w/ Dr. Chaidez via phone (see provider notification). Orders obtained to move patient to step-down. Give cardizem 5 mg bolus x1. Start cardizem gtt @ 5 mls/hr, titrate to HR >100. Troponins. Orders RB+V. Pt moved to step-down room. Placed on tely, cont pulse ox. Pt continues to be asymptomatic. Pt's updated. Left in care of S Call,RN @ 1949. currently @ bedside.
[2021-01-23 23:07] LABS: Troponin I 0.06 ng/ml (0.00-0.034)
--- NOTE | 2021-01-23 23:37 | PC.NURSE ---
He is A&Ox3. He continues in afib. His rate is controlled at times and uncontrolled at others. He continues on the cardizem gtt. He continues on RA. He reports SOA at rest and states that it is worse with exertion. He has 1+ pitting edema to his bLE. Crackles noted in his right base. Denies weakness and dizziness. Denies pain. Reports his last BM was today.
[2021-01-24] VITALS (14 sets, daily range): BP systolic 110–126; BP diastolic 50–74; PULSE 59–87; RESP 17–20; TEMP 37.1–37.2; O2SAT 95–98; BMI 21.5
--- NOTE | 2021-01-24 01:20 | ECG_ITS ---
APPROVED REPORT Exam: Resting ECG HR:63 bpm ECG Measurements Heart Rate 63 AXES VT 174 P -27 QRSd 86 QRS 47 QT 384 T 35 QTc 392 Conclusion Normal sinus rhythm Moderate voltage criteria for LVH, may be normal variant Borderline ECG Electronically signed by : Anup Maldonado, 01/27/2021 07:33:24
[2021-01-24 06:34] LABS: Basophils % 0.3 % (0.1-2.0); Eosinophils # 0.4 K/mm3 (0.0-0.4); Eosinophils % 4.1 % (0.1-12.0); Hematocrit 25.6 % (42.0-52.0); Lymphocytes # 0.8 K/mm3 (0.7-4.5); Lymphocytes % 8.7 % (10-50); Mean Corpuscular HGB Conc 31.2 g/dL (31.8-35.4); Mean Corpuscular Hemoglobin 28.1 pg (27.0-31.2); Mean Corpuscular Volume 89.9 fl (80-94); Mean Platelet Volume 7.1 fl (7.4-10.4); Monocytes # 0.4 K/mm3 (0.1-1.0); Monocytes % 4.6 % (1.7-9.3); Neutrophils # 7.9 K/mm3 (1.8-7.8); Neutrophils % 82.3 % (37.0-80.0); Platelet Count 548 K/mm3 (142-424); Red Blood Count 2.85 M/mm3 (4.60-6.20); Red Cell Distribution Width 19.4 % (11.5-17.5); White Blood Count 9.6 K/mm3 (4.8-10.8)
[2021-01-24 06:42] LABS: Anion Gap 12.2 mEq/L (5-15); Blood Urea Nitrogen 37 mg/dl (9-20); Calcium 8.2 mg/dl (8.4-10.2); Carbon Dioxide 21 mmol/L (22.0-30.0); Chloride 106 mmol/L (98-107); Creatinine Clearance Estimated 19 mL/min (50-200); Estimated Glomerular Filt Rate 19 ml/min (>60); GFR (African American) 23 ML/MIN (>60); Glucose 177 mg/dl (74-100); Potassium 4.2 mmoL/L (3.5-5.1); Sodium 135 mmol/L (136-145)
--- NOTE | 2021-01-24 08:20 | HMH.ACPN2 ---
<Andreia Brooks - Last Filed: 01/24/21 08:20> Internal Medicine - PN: Subj *Date: 01/24/21 *Time: 08:20 Interval history: Patient had an eventful day yesterday. He was noted to be in atrial fib with rapid ventricular response. He was placed on Cardizem drip and then converted around 3 AM this morning to normal sinus rhythm. He is now off the Cardizem drip and receiving p.o. Cardizem. During all this he states he did not know that his rhythm had changed. His breathing was as usual. He denies having chest pain. He has been eating as usual. He ambulates in the room without difficulty. He continues to have dysuria and is voiding frequently. He did not sleep much during the night due to the frequent voids and nursing care Laboratory data this morning show hemoglobin of 8 with hematocrit of 25.6. White blood cell count is 9600. Blood chemistries with a sodium of 135 and potassium of 4.2. BUN is 37 and creatinine has decreased slightly to 3.2. Troponin I's done yesterday are 0.06 and 0.06. Urine culture shows no growth thus far. Chest x-ray repeated yesterday showed the following: IMPRESSION: Right lower lobe pneumonia slightly worse along the superior margin of the area consolidation Exam Vital signs and Labs for Last 24 Hours: Temp Pulse Resp BP Pulse Ox 98.5 F 64 18 110/62 95 01/23/21 20:00 01/24/21 06:16 01/24/21 06:00 01/24/21 06:00 01/24/21 06:16 Laboratory Results - last 24 hr 01/23/21 19:36: Troponin I 0.06 H 01/23/21 22:36: Troponin I 0.06 H 01/24/21 06:00: WBC 9.6, RBC 2.85 L, Hgb 8.0 L, Hct 25.6 L, MCV 89.9, MCH 28.1, MCHC 31.2 L, RDW 19.4 H, Plt Count 548 H, MPV 7.1 L, Neut % (Auto) 82.3 H, Lymph % (Auto) 8.7 L, Jay % (Auto) 4.6, Eos % (Auto) 4.1, Baso % (Auto) 0.3, Neut # (Auto) 7.9 H, Lymph # (Auto) 0.8, Jay # (Auto) 0.4, Eos # (Auto) 0.4, Baso # (Auto) 0.0 01/24/21 06:00: Sodium 135 L, Potassium 4.2, Chloride 106, Carbon Dioxide 21 L, Anion Gap 12.2, BUN 37 H, Creatinine 3.20 H, Estimated Creat Clear 19, Estimated GFR 19 L*, Est GFR ( Amer) 23 L, Glucose 177 H, Calcium 8.2 L I & O for Last 24 hours: Intake & Output 01/21/21 01/22/21 01/23/21 01/24/21 11:59 11:59 11:59 11:59 Intake Total 2724 / 2724 3079 / 3079 3099 / 3099 2058 / 2058 Output Total 1000 / 1000 1100 / 1100 780 / 780 660 / 660 Balance 1724 / 1724 1978 / 1978 2319 / 2319 1399 / 1399 Weight 151 lb 1 oz 155 lb 1 oz 153 lb 3 oz 154 lb 1 oz Microbiology Reports for the Last 24 Hours: Microbiology 01/22/21 09:10 Urine,Clean Catch Urine Culture - Preliminary NO GROWTH AFTER 24 HOURS - Constitutional no acute distress Comments: Sitting on bedside eating his breakfast. - *Routine Respiratory Exam Present: crackles (Some crackles noted in the left base. Crackles up to the mid chest on the right.) - *Routine Cardiovascular Exam Present: RRR (Monitor now showing sinus rhythm) - *Routine Abdominal Exam Present: soft, normoactive bowel sounds. Absent: tenderness - *Routine Extremities Exam Present: edema (1+ bilaterally) - *Routine Neurological Exam Present: alert, oriented X3 Assessment and Plan (1) CAP (community acquired pneumonia) Status: Acute Qualifiers: Laterality: right Lung location: lower lobe of lung Qualified Code(s): J18.9 - Pneumonia, unspecified organism Category: Medical Code(s): J18.9 - Pneumonia, unspecified organism (2) Iron deficiency anemia Status: Acute Category: Medical Code(s): D50.9 - Iron deficiency anemia, unspecified (3) Renal insufficiency Status: Acute Category: Medical Code(s): N28.9 - Disorder of kidney and ureter, unspecified (4) Hypertension Status: Acute Category: Medical Code(s): I10 - Essential (primary) hypertension (5) Dysuria Status: Acute Category: Medical Code(s): R30.0 - Dysuria (6) Severe protein-calorie malnutrition Status: Chronic Category: Medical Code(s)
--- NOTE | 2021-01-24 10:51 | CA_ITS ---
APPROVED REPORT EXAM: Comprehensive 2D, Doppler, and color-flow Echocardiogram Cook Fish Eggs: BYRON Khan, RVS Ht: 5 ft 10 in Wt: 154lbs BSA: 1.87 BP: 113/61 mmHg Indications: A-fib, pneumonia, HTN, HLD, SOB 2D Dimensions IVSd 1.35 cm LA Volume 63.10 mL PWd 1.08 cm LA Volume Index 33.70 mL/m2 (M/F) 16-34 LVDd 4.88 cm Aortic Root 1.91 cm Left Atrium 3.26 cm M-Mode Dimensions RVDd 1.57 cm (0.9-2.6) LA Diam 4.12 cm (1.9-4.0) LVDd 5.12 cm (3.5-5.7) Ao Diam 3.81 cm (2.0-3.7) LVDs 3.07 cm (3.5-5.7) IVSd 0.90 cm (0.6-1.1) PWd 1.01 cm (0.6-1.1) EF (Teich) 68.00% EPSs 0.38 cm FS 38.00% EDV (Teich) 115.50 mL TAPSE 2.42 (<1.7) ESV (Teich) 37.00 mL LV Diastology E Decel Time 283.00 (160-240 msec) E/A Ratio 1.32 MED E' 7.20 (< 7 cm/sec) MED A' 11.00 cm/s E'/MED E' Ratio 13.49 (>14) LAT E' 8.30 (<10 cm/sec) LAT A' 12.30 cm/s E/LAT E' Ratio 11.70 (>14) Aortic Valve LVOT Max 105.00 (70-110 cm/s) LVOT VTI 17.49 cm AoV Peak Jim. 131.00 (50-130 cm/s) AO Peak GR. 6.90 mmHg AO Mean GR. 3.90 (<5 mmHg) AO VTI 27.33 (18-25 cm) Mitral Valve MV A Velocity 74.00 (40-130 cm/s) E/A Ratio 1.32 MV Decel. Time 283.00 (160-240 ms) Pulmonary Valve PV Peak Velocity 82.00 (50-150 cm/s) Tricuspid Valve TR P. Velocity 232.00 cm/s RAP Estimate 10.00 mmHg RVSP 31.60 mmHg Left Ventricle Left atrium is mildly enlarged, left ventricle is normal size, mild concentric left ventricular hypertrophy, visually estimated ejection fraction 55% with no regional wall motion abnormality, grade 1 diastolic dysfunction seen without tissue Doppler evidence of raise left atrial pressure. Right Ventricle Right atrium and right ventricle are normal size and contractility. Aortic Valve Aortic valve is minimally thickened and fibrosed, there is no aortic stenosis or aortic insufficiency. Mitral Valve Mitral valve is grossly normal, there is trace mitral regurgitation. Tricuspid Valve Tricuspid grossly normal, there is trace tricuspid regurgitation. Tricuspid regurgitation jet velocity is inadequate for calculation of the right ventricular systolic pressure Pulmonic Valve Pulmonic valve is poorly visualized. Great Vessels Aortic root is normal size. Pericardium No significant pericardial effusion noted. Conclusion 1. Mildly enlarged left atrium, normal left ventricular size, mild concentric left ventricular hypertrophy, visually estimated ejection fraction 55% with no regional wall motion abnormality, grade 1 diastolic dysfunction seen without tissue Doppler evidence of raise left atrial pressure. 2. Trace mitral and tricuspid regurgitation. 3. No significant pericardial effusion noted. Electronically signed by : Graham Forrest, 01/25/2021 16:16:01
--- NOTE | 2021-01-24 11:07 | HMH.CNCARD ---
History of Present Illness Consult date: 01/24/21 Requesting physician: Joe Shaffer Consult reason: atrial fibrillation Chief complaint: Atrial fibrillation with RVR History of present illness: 80-year-old admitted to [facility] facility with a diagnosis of right lobe pneumonia. During this admission, patient was noted to have new onset atrial fibrillation with RVR with a max heart rate of 149 bpm. Patient was placed on a Cardizem drip at that time. Patient did convert into sinus bradycardia sinus rhythm around 3 AM this morning. Patient has remained in sinus bradycardia since that time. Cardizem drip has been stopped and patient was given Cardizem 3 mg p.o. 1 dose per PCP. Patient denied chest pain, tightness or pressure. Patient does complain of shortness of breath with minimal exertion. O2 sat is 100% on room air. Nonproductive cough noted. Patient does have slight swelling of the lower extremities. Patient has history of chronic kidney disease in which he sees a ecommerce manager at . There had been a discussion as to whether or not he should start dialysis. Patient states he is uncertain as to whether or not he is a candidate for dialysis. Creatinine today is 3.20. Patient denies any cardiac issues. Patient denies coronary artery disease. Patient states he does have history of essential hypertension and hyperlipidemia. Hypertension and hyperlipidemia are currently being treated with appropriate medications and managed by PCP. Patient does have severe protein anemia caloric malnutrition due to CKD he has had 16% BW. Patient has history of prostate cancer in which he has had 3 surgeries since the beginning of this year. Patient does continue to complain of pain upon urination. Patient currently is undergoing iron infusions at . Patient has history of CVA in which in the past he was treated with Plavix and aspirin. But due to bleeding, Plavix and aspirin were stopped by PCP. nuclear monitoring technician reveals sinus bradycardia with a heart rate of 57 bpm. BP is stable. Serial troponins noted as 0.06x2. H&H are low. This is being managed by PCP. Discussed plan of care with Dr. Marina. Will start patient on amiodarone 200 mg twice daily p.o. for rhythm control. Patient noted with high CHADSv score and new onset of atrial fibrillation, would recommend starting patient on anticoagulant such as Xarelto. But due to patient's issues and concerns of bleeding, we are unable to start patient on anticoagulants at this time. We do recommend that patient be referred on an outpatient basis for and to discuss watchman device due to unable to take anticoagulant. Due to unable to take anticoagulants at this time, patient is at high risk for stroke. Discussed signs and symptoms of a stroke with patient and . Patient and verbalized understanding. Recommend ischemic coronary work-up on an outpatient basis such as Lexiscan Myoview stress test. Due to elevated renal function, will defer further cardiac testing at this time. Discussed the risk and benefits of watchman device with patient and . Patient and verbalized understanding. Thank you for allowing cardiology to participate in the care of this patient. [facility] History I have reviewed the patient's past medical history: Yes Medical History: Reports:: Gastroesophageal Reflux Disease(GERD), Hyperlipidemia, Hypertension, Peripheral Vascular Disease, Renal Insufficiency, Transient Ischemic Attacks (TIA) (2013 x2), Urinary Tract Infection Denies:: Cancer, Diabetes Mellitus Type 1, Diabetes Mellitus Type 2, Internal Pacemaker, MRSA, Seizures *Have you ever received a pneumonia vaccine?: Yes *Have you received a flu vaccine this season?: Yes Other Medical History: Reports: Anemia, Arthritis, Blood Transfusion Reaction Laterality Cases: Right: Carpal Tunnel Release, Bilateral: Other Other Surgeries: Yes: No Previous Surgery, Colonoscopy, EGD, Hernia Repair (bilateral inguinal 2014), Other (sobeida
[2021-01-24 12:51] LABS: Alanine Aminotransferase 108 U/L (12-78); Albumin Level 2.7 g/dl (3.5-5.0); Alkaline Phosphatase 176 U/L (38-126); Aspartate Amino Transferase 61 U/L (17-59); Bilirubin,Direct 0.2 mg/dl (0.0-0.4); Bilirubin,Total 0.2 mg/dl (0.2-1.3); Total Protein,Serum 5.1 g/dl (6.3-8.2)
[2021-01-24 13:30] LABS: Thyroid Stimulating Hormone 1.42 uIU/mL (0.465-4.68)
--- NOTE | 2021-01-24 15:35 | PC.NURSE ---
No acute changes noted this shift, patient has remained in SR, HR 70-80, alert and oriented x4, lung sounds diminished in RL base, on RA, trace edema noted to BLE, peripheral pulses 2+, abd soft and nontender, BM this shift, voids per urinal, report painful urination and hesistancy, no s/s of distress noted, vss, will continue to monitor.
--- NOTE | 2021-01-24 21:08 | PC.NURSE ---
He is A&ox3. He reports pain in his prostate and rates it a 3/10. Reports SOA at rest and increased SOA with exertion. He ambulates to the bathroom independent with steady gait. Continues in NSR on telemetry and on RA. Voiding per urinal. Urine is yellow, cloudy. He states his last BM was today.
[2021-01-25] VITALS (13 sets, daily range): BP systolic 94–135; BP diastolic 65–73; PULSE 60–110; RESP 16–20; TEMP 36.4–37.3; O2SAT 95–98; BMI 21.2
[2021-01-25 06:48] LABS: Basophils % 0.4 % (0.1-2.0); Eosinophils # 0.4 K/mm3 (0.0-0.4); Eosinophils % 4.5 % (0.1-12.0); Hematocrit 25.6 % (42.0-52.0); Hemoglobin 8.3 g/dL (14.1-18.0); Lymphocytes # 0.9 K/mm3 (0.7-4.5); Lymphocytes % 9.5 % (10-50); Mean Corpuscular HGB Conc 32.3 g/dL (31.8-35.4); Mean Corpuscular Hemoglobin 28.6 pg (27.0-31.2); Mean Corpuscular Volume 88.5 fl (80-94); Mean Platelet Volume 7.8 fl (7.4-10.4); Monocytes # 0.5 K/mm3 (0.1-1.0); Monocytes % 5.3 % (1.7-9.3); Neutrophils # 7.9 K/mm3 (1.8-7.8); Neutrophils % 80.3 % (37.0-80.0); Platelet Count 618 K/mm3 (142-424); Red Cell Distribution Width 19.1 % (11.5-17.5); White Blood Count 9.8 K/mm3 (4.8-10.8)
[2021-01-25 06:56] LABS: Anion Gap 13.1 mEq/L (5-15); Blood Urea Nitrogen 36 mg/dl (9-20); Calcium 8.2 mg/dl (8.4-10.2); Carbon Dioxide 20 mmol/L (22.0-30.0); Chloride 108 mmol/L (98-107); Creatinine Clearance Estimated 19 mL/min (50-200); Estimated Glomerular Filt Rate 20 ml/min (>60); GFR (African American) 24 ML/MIN (>60); Glucose 152 mg/dl (74-100); Potassium 4.1 mmoL/L (3.5-5.1); Sodium 137 mmol/L (136-145)
--- NOTE | 2021-01-25 08:32 | HMH.ACPN2 ---
<Stacy Diego - Last Filed: 01/25/21 08:38> Internal Medicine - PN: Subj *Date: 01/25/21 *Time: 08:38 Interval history: Patient is feeling better this morning. He states he is still weak. He still has a cough and gets short of breath with any exertion. He slept better last night and was able to eat a good breakfast this morning. He denies any pain. He has remained in sinus rhythm at a normal rate. Exam Vital signs and Labs for Last 24 Hours: Temp Pulse Resp BP Pulse Ox 99.1 F 79 20 125/71 96 01/25/21 03:56 01/25/21 06:21 01/25/21 03:56 01/25/21 03:56 01/25/21 06:21 Laboratory Results - last 24 hr 01/24/21 06:00: TSH 1.42 D 01/24/21 06:00: Total Bilirubin 0.2, Direct Bilirubin 0.2, Conjugated Bilirubin 0.0, Indirect Bilirubin 0.0, Unconjugated Bilirubin 0.0, AST 61 H, ALT 108 H, Alkaline Phosphatase 176 H, Total Protein 5.1 L D, Albumin 2.7 L 01/25/21 05:43: WBC 9.8, RBC 2.90 L, Hgb 8.3 L, Hct 25.6 L, MCV 88.5, MCH 28.6, MCHC 32.3, RDW 19.1 H, Plt Count 618 H, MPV 7.8, Neut % (Auto) 80.3 H, Lymph % (Auto) 9.5 L, Harlan % (Auto) 5.3, Eos % (Auto) 4.5, Baso % (Auto) 0.4, Neut # (Auto) 7.9 H, Lymph # (Auto) 0.9, Harlan # (Auto) 0.5, Eos # (Auto) 0.4, Baso # (Auto) 0.0 01/25/21 05:43: Sodium 137, Potassium 4.1, Chloride 108 H, Carbon Dioxide 20 L, Anion Gap 13.1, BUN 36 H, Creatinine 3.10 H, Estimated Creat Clear 19, Estimated GFR 20 L, Est GFR ( Amer) 24 L, Glucose 152 H, Calcium 8.2 L I & O for Last 24 hours: Intake & Output 01/22/21 01/23/21 01/24/21 01/25/21 11:59 11:59 11:59 11:59 Intake Total 3079 / 3079 3099 / 3099 2299 / 2299 2067 Output Total 1100 / 1100 780 / 780 660 / 660 2360 / 2360 Balance 1978 2319 / 2319 1639 / 1639 -292 / -292 Weight 155 lb 1 oz 153 lb 3 oz 154 lb 1 oz 152 lb Microbiology Reports for the Last 24 Hours: Microbiology 01/22/21 09:10 Urine,Clean Catch Urine Culture - Final NO GROWTH AFTER 48 HOURS - Constitutional no acute distress - *Routine Respiratory Exam Present: rales (Right base). Absent: wheezes - *Routine Cardiovascular Exam Present: RRR - *Routine Abdominal Exam Present: soft, normoactive bowel sounds. Absent: tenderness - *Routine Extremities Exam Present: edema (Bilateral lower extremity edema). Absent: cyanosis, clubbing - *Routine Skin Exam Present: warm. Absent: rash - *Routine Neurological Exam Present: alert, oriented X3 Assessment and Plan (1) CAP (community acquired pneumonia) Status: Acute Qualifiers: Laterality: right Lung location: lower lobe of lung Qualified Code(s): J18.9 - Pneumonia, unspecified organism Category: Medical Code(s): J18.9 - Pneumonia, unspecified organism (2) Iron deficiency anemia Status: Acute Category: Medical Code(s): D50.9 - Iron deficiency anemia, unspecified (3) Renal insufficiency Status: Acute Category: Medical Code(s): N28.9 - Disorder of kidney and ureter, unspecified (4) Hypertension Status: Acute Category: Medical Code(s): I10 - Essential (primary) hypertension (5) Dysuria Status: Acute Category: Medical Code(s): R30.0 - Dysuria (6) Severe protein-calorie malnutrition Status: Chronic Category: Medical Code(s): E43 - Unspecified severe protein-calorie malnutrition (7) CKD (chronic kidney disease) stage 4, GFR 15-29 ml/min Status: Acute Category: Medical Code(s): N18.4 - Chronic kidney disease, stage 4 (severe) (8) New onset atrial fibrillation Status: Acute Category: Medical Code(s): I48.91 - Unspecified atrial fibrillation - Assessment and plan all Dx Assessment and Plan for all problems:: Patient is improving. Cardiology to follow. Will discuss further care with Dr. Shaffer. <Joe Shaffer - Last Filed: 01/25/21 08:56> Internal Medicine - PN: Subj *Date: 01/25/21 *Time: 08:56 Exam Vital signs and Labs for Last 24 Hours: Temp Pulse Resp BP
--- NOTE | 2021-01-25 08:49 | XR_ITS ---
PROCEDURE: XR CHEST 2V CLINICAL HISTORY: f/u RLL pneumonia COMPARISON: CT CHESTW CT chest w con from 10/06/2017 CR XR CHEST 2V from 11/30/2020 CR XR CHEST 2V from 01/20/2021 CR XR CHEST 2V from 01/23/2021 FINDINGS: The cardiomediastinal silhouette and pulmonary vascularity are within normal limits. Right lower lobe pneumonia once again noted and appears slightly worse compared to the previous study. Consolidation appears slightly greater in the lower lobe. Minimal fibrotic or atelectatic changes are present in the right lung base. Small bilateral effusions. No acute bony abnormalities. IMPRESSION: Right lower lobe pneumonia does appears slightly worse with small bilateral effusions Dictated by: Joshua Rubi MD 01/25/2021 10:23 Joshua Rubi MD in [place] 01/25/2021 10:23
--- NOTE | 2021-01-25 10:09 | HMH.PNCARD ---
Subjective Date: 01/25/21 Time: 10:09 Principal diagnosis: Afib Interval history: This is a 80-year-old white gentleman admitted to [facility] for right lobe pneumonia. The patient did go in atrial fibrillation with RVR which was new's onset during his hospitalization. Heart rate was around 149. The patient was placed on a diltiazem drip and he did convert back to sinus rhythm. The patient has remained in sinus rhythm on oral Cardizem since then. He was initially bradycardic when he did convert and has been started on amiodarone 200 mg p.o. twice daily for rhythm control in place of the Cardizem since he was bradycardic. The patient remains rate controlled today in sinus rhythm. He does have a high [id number] score so long-term oral anticoagulation is indicated. However the patient has a history of GI bleeding and oral anticoagulation is not ideal for this patient and he does not want to take oral anticoagulation. Watchman's device has also been discussed with the patient since he cannot take oral anticoagulation due to his history of GI bleeds. We discussed his increased risk of stroke while he is in atrial fibrillation and the need for the watchman's device. The patient states that he is not sure he wants to proceed with the watchman's device at this time and needs more time to think about it. This referral will be made on an outpatient basis once he is made a decision. He is currently in sinus rhythm. He denies any chest pain or pressure. He does have shortness of breath with exertion. He states that this improves with rest. He does state that he also has edema in his lower extremities at times but this has improved. He denies any fever, chills, nausea, vomiting, diarrhea, PND or orthopnea. Exam Vital signs and Labs for Last 24 Hours: Temp Pulse Resp BP Pulse Ox 98.0 F 79 19 135/65 96 01/25/21 08:00 01/25/21 08:00 01/25/21 08:00 01/25/21 08:00 01/25/21 08:00 Laboratory Results - last 24 hr 01/24/21 06:00: TSH 1.42 D 01/24/21 06:00: Total Bilirubin 0.2, Direct Bilirubin 0.2, Conjugated Bilirubin 0.0, Indirect Bilirubin 0.0, Unconjugated Bilirubin 0.0, AST 61 H, ALT 108 H, Alkaline Phosphatase 176 H, Total Protein 5.1 L D, Albumin 2.7 L 01/25/21 05:43: WBC 9.8, RBC 2.90 L, Hgb 8.3 L, Hct 25.6 L, MCV 88.5, MCH 28.6, MCHC 32.3, RDW 19.1 H, Plt Count 618 H, MPV 7.8, Neut % (Auto) 80.3 H, Lymph % (Auto) 9.5 L, [place] % (Auto) 5.3, Eos % (Auto) 4.5, Baso % (Auto) 0.4, Neut # (Auto) 7.9 H, Lymph # (Auto) 0.9, [place]house # (Auto) 0.5, Eos # (Auto) 0.4, Baso # (Auto) 0.0 01/25/21 05:43: Sodium 137, Potassium 4.1, Chloride 108 H, Carbon Dioxide 20 L, Anion Gap 13.1, BUN 36 H, Creatinine 3.10 H, Estimated Creat Clear 19, Estimated GFR 20 L, Est GFR ( Amer) 24 L, Glucose 152 H, Calcium 8.2 L I & O for Last 24 hours: Intake & Output 01/22/21 01/23/21 01/24/21 01/25/21 23:59 23:59 23:59 23:59 Intake Total 2599 / 2599 3745 / 3745 2196 / 2196 1645 / 1645 Output Total 1075 / 1075 505 / 505 1750 / 2100 1570 / 1570 Balance 1524 / 1524 3240 / 3240 446 / 96 75 / 75 Weight 154 lb 5.177 oz 153 lb 3 oz 154 lb 1 oz 152 lb Microbiology Reports for the Last 24 Hours: Microbiology 01/22/21 09:10 Urine,Clean Catch Urine Culture - Final NO GROWTH AFTER 48 HOURS Narrative: Preliminary echocardiogram shows an EF of 65% with trace mitral regurgitation and trace tricuspid regurgitation. - Constitutional no acute distress, average body habitus - *Routine HEENT Exam Head: Present: normocephalic, atraumatic Eye: Present: EOMI, PERRL ENT: Present: mucous membranes moist - *Routine Neck Exam Present: supple, full ROM, normal carotid upstroke. Absent: JVD, carotid bruit, lymphadenopathy - *Routine Respiratory Exam Present: CTA bilaterally - *Routine Cardiovascular Exam Present: RRR, Normal S1, Normal S2. Absent: murmur - *Routine Abdominal Exam Present: soft, normoactive toña
--- NOTE | 2021-01-25 12:02 | PC.NURSE ---
Pt now in Afib uncontrolled with rate 110-140s for last 30min. Called Dr. Shaffer who asked that I contact cardiology. Anca Dukes APRN notified.
--- NOTE | 2021-01-25 12:22 | PC.NURSE ---
Anca Dukes APRN on the floor. She ordered the following: STOP Norvasc, START Metoprolol Succ 50mg daily, and give Metoprolol Succ 50mg NOW. She will enter orders.
--- NOTE | 2021-01-25 15:52 | PC.NURSE ---
BP 94/70 and Afib continues with rate 120s. Contacted Anca Dukes APRN. No new orders received at this time. He is asymptomatic. She wishes to see how he does . Dr. Shaffer updated.
--- NOTE | 2021-01-25 18:30 | PC.NURSE ---
pt converted to NSR with rate 68. Dr. Shaffer made aware.
[2021-01-26] VITALS: PULSE 70
--- NOTE | 2021-01-26 03:42 | PC.NURSE ---
A&OX4. PT TOLERATING RA WELL. PT HAS BEEN NSR ON TELE, HR 60-70S. PT HAS HAD NO C/O PAIN THIS SHIFT. PT UP IN ROOM INDEPENDENTLY. STATES HE FEELS MUCH BETTER. VSS WILL CONTINUE TO MONITOR.
[2021-01-26 04:00] VITALS: BP 133/73; PULSE 60; PULSE 72; RESP 16; TEMP 36.7; O2SAT 97
[2021-01-26 05:00] VITALS: BMI 21.9
[2021-01-26 06:14] VITALS: PULSE 64; PULSE 69; O2SAT 99
[2021-01-26 07:56] VITALS: BP 132/71; PULSE 74; RESP 18; TEMP 36.8; O2SAT 98
--- NOTE | 2021-01-26 08:05 | HMH.ACPN2 ---
<Stacy Diego - Last Filed: 01/26/21 08:05> Internal Medicine - PN: Subj *Date: 01/26/21 *Time: 08:05 Interval history: Patient went back into A. fib yesterday but converted again last night. He feels well this morning. He has been up to the bathroom and does get short of breath with any exertion. His cough is improving. He denies any other pain. He slept well and ate all of his breakfast. Exam Vital signs and Labs for Last 24 Hours: Temp Pulse Resp BP Pulse Ox 98.2 F 74 18 132/71 98 01/26/21 07:56 01/26/21 07:56 01/26/21 07:56 01/26/21 07:56 01/26/21 07:56 I & O for Last 24 hours: Intake & Output 01/23/21 01/24/21 01/25/21 01/26/21 11:59 11:59 11:59 11:59 Intake Total 3099 / 3099 2299 / 2299 2668 / 2668 3046 / 3046 Output Total 780 / 780 660 / 660 2660 / 2660 1801 / 1801 Balance 2319 / 2319 1639 / 1639 8 / 8 1245 / 1245 Weight 153 lb 3 oz 154 lb 1 oz 152 lb 157 lb Microbiology Reports for the Last 24 Hours: Microbiology 01/20/21 13:45 Blood Blood Culture - Final NO GROWTH AFTER 5 DAYS 01/20/21 13:20 Blood Blood Culture - Final NO GROWTH AFTER 5 DAYS Radiology Reports for the Last 24 Hours: Chest x-ray Right lower lobe pneumonia does appears slightly worse with small bilateral effusions - Constitutional no acute distress - *Routine Respiratory Exam Present: rales (Bibasilar) - *Routine Cardiovascular Exam Present: RRR - *Routine Abdominal Exam Present: soft, normoactive bowel sounds. Absent: tenderness - *Routine Extremities Exam Present: edema (Bilateral lower extremities). Absent: cyanosis, clubbing - *Routine Skin Exam Present: warm. Absent: rash - *Routine Neurological Exam Present: alert, oriented X3 Assessment and Plan (1) New onset atrial fibrillation Status: Acute Category: Medical Code(s): I48.91 - Unspecified atrial fibrillation (2) CAP (community acquired pneumonia) Status: Acute Qualifiers: Laterality: right Lung location: lower lobe of lung Qualified Code(s): J18.9 - Pneumonia, unspecified organism Category: Medical Code(s): J18.9 - Pneumonia, unspecified organism (3) Iron deficiency anemia Status: Acute Category: Medical Code(s): D50.9 - Iron deficiency anemia, unspecified (4) Renal insufficiency Status: Acute Category: Medical Code(s): N28.9 - Disorder of kidney and ureter, unspecified (5) Hypertension Status: Acute Category: Medical Code(s): I10 - Essential (primary) hypertension (6) Dysuria Status: Acute Category: Medical Code(s): R30.0 - Dysuria (7) Severe protein-calorie malnutrition Status: Chronic Category: Medical Code(s): E43 - Unspecified severe protein-calorie malnutrition (8) CKD (chronic kidney disease) stage 4, GFR 15-29 ml/min Status: Acute Category: Medical Code(s): N18.4 - Chronic kidney disease, stage 4 (severe) - Assessment and plan all Dx Assessment and Plan for all problems:: Right lower lobe pneumonia appears slightly worse on chest x-ray and patient does have bilateral pleural effusions. He has lower extremity edema as well. May need some Lasix. Will discuss with Dr. Shaffer. <Joe Shaffer - Last Filed: 01/26/21 08:58> Internal Medicine - PN: Subj *Date: 01/26/21 *Time: 08:57 Exam Vital signs and Labs for Last 24 Hours: Temp Pulse Resp BP Pulse Ox 98.2 F 74 18 132/71 98 01/26/21 07:56 01/26/21 07:56 01/26/21 07:56 01/26/21 07:56 01/26/21 07:56 I & O for Last 24 hours: Intake & Output 01/23/21 01/24/21 01/25/21 01/26/21 23:59 23:59 23:59 23:59 Intake Total 3745 / 3745 2196 / 2196 2958 / 2958 1733 / 1733 Output Total 505 / 505 1750 / 2100 2071 / 2071 1300 / 1300 Balance 3240 / 3240 446 / 96 887 / 887 433 / 433 Weight 153 lb 3 oz 154 lb 1 oz 152 lb 157 lb Microbiology Reports for the Last 24 Hours: Microbiology 01/20/21 13:45
--- NOTE | 2021-01-26 11:05 | HMH.DCSUM ---
General - General Admission date:: 01/20/21 Discharge date: 01/26/21 HPI HPI: 80 y.o. WM was seen in [facility] this AM with c/o cough, sob, tickling in throat. Productive cough. Does not feel well. Has been sick for about a week. Has chronic renal insufficiency and iron deficiency anemia. Prostate disease. Has been COVID 19 vaccinated (Moderna). In the officee he was SOA, and with temp of 100. Right sided rales were prominent. WBC was elevated 16,200. Hospital Course Hospital Course: The patient was admitted and started on IV antibiotics as well as oxygen. A chest x-ray was ordered, which showed a right lower lobe pneumonia. His white blood cell count was elevated as were his renal functions. His troponin was also elevated. His Covid swab was negative. Duo nebs were added and the patient did begin feeling better. He had some difficulty with voiding and some lower abdominal discomfort, therefore his Flomax and Proscar were restarted. His oxygen saturations improved to 95 to 96% on room air. He was started on Zithromax and fluids were encouraged. His urine culture returned showing no growth and his blood culture showed no growth. He continued with a dry cough and some shortness of breath with exertion. His white blood cell count normalized. His hemoglobin decreased, but his renal functions improved slightly. He was seen by dietary who felt he had severe protein calorie malnutrition. He has iron deficiency anemia and receives iron infusions at . He was encouraged by dietary to prioritize adequate intakes of iron without while eating as little salt as possible. His chest x-ray was repeated and showed a slightly worsening right lower lobe pneumonia. On 01/24/2021 the patient went into A. fib with rapid ventricular response and was placed on a Cardizem drip. He then converted to normal sinus rhythm and was taken off of the Cardizem drip and started on p.o. Cardizem. Cardiology was consulted. They started the patient on amiodarone 200 mg twice daily for rhythm control. They wanted to start him on Xarelto, but due to the patient's low hemoglobin, history of iron infusions, and concerns of bleeding, they did not do this. They recommended he be referred on an outpatient basis to discuss a watchman device due to his inability to take an anticoagulant. The patient did not seem interested in this. They also recommended a Lexiscan Myoview stress test, but due to the patient's elevated renal function, this will be deferred until his renal function improves. An echo was ordered showing an EF of 55% with grade 1 diastolic dysfunction. The patient continued to improve a little each day. He had another chest x-ray showing a slightly worse right lower lobe pneumonia with small bilateral effusions. The patient went back into atrial fib with RVR. He was started again on a Cardizem drip and converted to sinus rhythm. The drip was stopped and he was switched to oral amiodarone 200 mg twice a day. His norvasc was stopped and he was started on Toprol-XL. He remained in sinus rhythm and continued to feel better and was stable to be discharged home on 01/26/2021. He will need close outpatient follow-up and will need to continue antibiotics for pneumonia and new medications for his A. fib. He will have an iron infusion in 4 days. Objective Vital signs: Temp Pulse Resp BP Pulse Ox 98.2 F 74 18 132/71 98 01/26/21 07:56 01/26/21 07:56 01/26/21 07:56 01/26/21 07:56 01/26/21 07:56 Narrative: - Constitutional moderate distress, thin, chronically ill appearing - *Routine HEENT Exam Head: Present: normocephalic Eye: Present: PERRL ENT: Present: mucous membranes dry - *Routine Neck Exam Present: JVD (slight?). Absent: carotid bruit - Routine Chest/Breast/Axilla Exam Chest wall: Present: tenderness - *Routine Respiratory Exam Present: decreased breath sounds, rales (prominent on the right), respiratory distress (mild) - *Routine Cardiovasc
== END 2021-01-26 10:10 | disposition home or self-care (01) | DRG 193 ==
PROVIDERS: Family Medicine; Nurse Practitioner Family; Urology; Admitting Provider Family Medicine; PCP Family Medicine; Visit Provider Family Medicine
DX: J18.9 Pneumonia, unspecified organism (principal); E43 Unspecified severe protein-calorie malnutrition; N18.4 Chronic kidney disease, stage 4 (severe); J90 Pleural effusion, not elsewhere classified; D50.9 Iron deficiency anemia, unspecified; Z86.73 Personal history of transient ischemic attack (TIA), and cerebral infarction without residual deficits; I73.9 Peripheral vascular disease, unspecified; E78.5 Hyperlipidemia, unspecified; I12.9 Hypertensive chronic kidney disease with stage 1 through stage 4 chronic kidney disease, or unspecified chronic kidney disease; I48.91 Unspecified atrial fibrillation; Z87.440 Personal history of urinary (tract) infections; Z68.22 Body mass index [BMI] 22.0-22.9, adult; R30.0 Dysuria
CPT/HCPCS: 36415; 71046; 80048; 80053; 80076; 81001; 82550; 82553; 83605; 84443; 84484; 85007; 85025; 87040; 87086; 93005; 93306; 94640; J2405; U0003

== ENCOUNTER 2021-01-30 09:00 | Outpatient (CLI) | payer MEDICARE, SELFPAY ==
[2021-01-30 09:19] VITALS: BP 137/69; PULSE 56; RESP 18; TEMP 37; O2SAT 100
[2021-01-30 10:15] VITALS: BP 122/53; PULSE 54; RESP 17; TEMP 36.9; O2SAT 97
== END 2021-01-30 10:18 | disposition home or self-care (01) ==
LOC: INF 09:17
PROVIDERS: Visit Provider Internal Medicine Nephrology
DX: N18.6 End stage renal disease; D63.1 Anemia in chronic kidney disease; Z99.2 Dependence on renal dialysis
CPT/HCPCS: 96365; J1756

== ENCOUNTER → 2021-02-02 09:15 | Outpatient (CLI) | payer MEDICARE, SELFPAY ==
--- NOTE | 2021-02-02 09:18 | XR_ITS ---
PROCEDURE: XR CHEST 2V CLINICAL HISTORY: PNEUMONIA OF RT LOWER LOBE DUE TO INFECTIOUS ORGANISM COMPARISON: CT CHESTW CT chest w con from 10/06/2017 CR XR CHEST 2V from 01/20/2021 CR XR CHEST 2V from 01/23/2021 CR XR CHEST 2V from 01/25/2021 FINDINGS: The cardiomediastinal silhouette and pulmonary vascularity are within normal limits. Increasing consolidation is present in the right lower lobe posteriorly consistent with worsening of pneumonia. No obvious effusion There are degenerative changes in the thoracic spine with reversal of the lower thoracic kyphosis. IMPRESSION: Worsening right lower lobe pneumonia Dictated by: Joshua Rubi MD 02/02/2021 09:34 Joshua Rubi MD in [place] 02/02/2021 09:34
== END ==
PROVIDERS: PCP Family Medicine; Visit Provider Family Medicine
DX: J18.9 Pneumonia, unspecified organism (principal)
CPT/HCPCS: 71046

== ENCOUNTER 2021-02-06 09:03 | Outpatient (CLI) | payer MEDICARE, SELFPAY ==
[2021-02-06 09:27] VITALS: BP 128/63; PULSE 51; RESP 18; TEMP 36.4; O2SAT 98
[2021-02-06 10:16] VITALS: RESP 18
[2021-02-06 10:24] VITALS: BP 126/69; PULSE 49; RESP 17
== END 2021-02-06 10:24 | disposition home or self-care (01) ==
LOC: INF 09:04
PROVIDERS: Visit Provider Internal Medicine Nephrology
DX: N18.4 Chronic kidney disease, stage 4 (severe) (principal); D63.1 Anemia in chronic kidney disease
CPT/HCPCS: 96365; J1756

== ENCOUNTER → 2021-02-14 07:07 | Outpatient (CLI) | payer MEDICARE, SELFPAY ==
--- NOTE | 2021-02-14 07:07 | NM_ITS ---
APPROVED REPORT Exam: Nuclear Stress Test Indication: HTN, SOB, ABNEKG, A-FIB Patient Location: Outpatient Stress Tech: Geeta Blanchard [place] Tech:Valerie Knox SARATHRubina RT (R)(N)(M) Ht: 5 ft 11 in Wt: 152 lbs HR: 52 bpm BP: 130/61 mmHg BSA: 1.88 m2 BMI: 21.1 History: HTN, SOB, ABNEKG, A-FIB Procedure: Patient received a 0.4 mg of intravenous Lexiscan, resting heart rate 52 bpm, resting blood pressure 130/61 mmHg, with Lexiscan maximum heart rate achived was 75 bpm which is Less than 85 % of the maximum predicted heart rate and blood pressure was 128/71 mmHg. With Lexiscan, patient denied any complaint of chest pain. Electrocardiogram Resting electrocardiogram showed sinus rhythm nonspecific ST-T changes, with Lexiscan there is less than 1.[address] segment depression noted from the baseline EKG. The EKG portion of the Lexiscan is nondiagnostic. Cardiac Stress and Resting SPECT Images: Cardiac Stress and Resting SPECT images were obtained using technetium 99m Myoview 31.9 mCi stress and 10.71 mCi at rest. Gated SPECT for analysis of segmental wall motion and calculation of the ejection fraction also done, prone images were also obtained. Cardiac stress and resting SPECT images show uniform myocardial activity without segmental perfusion abnormality, computer derived ejection fraction is 55% with no regional wall motion abnormality, right ventricle is mildly enlarged with normal contractility. Conclusion: 1. The EKG portion of the Lexiscan is nondiagnostic. 2. No scintigraphic evidence of reversible ischemia seen, computer derived ejection fraction is 55% with no regional wall motion abnormality, right ventricle is mildly enlarged with normal contractility. Electronically signed by : Graham Forrest, 02/15/2021 09:59:10
--- NOTE | 2021-02-14 08:30 | CA_ITS ---
APPROVED REPORT Exam: Pharmacologic Technologist: Geeta Blanchard, Ht: 5 ft 11 in Wt: 146 lbs BSA: 1.84 m2 HR: 52 bpm BP: 130/61 mmHg Rhythm: SINUS BRIDGETTE, 1 AVB, NS ST ABNS INFERIORLY AND LATERALLY Medical History Medications: Amiodarone,,,,, Metoprolol,,,,, Ferrous sulfate,,,,, TAMSULOSIN,,,,, Finasteride,,,,, SoDIUM BICARB,,,,, SucCINATE,,,,, OxYbuteNIN CHLORIDE,,,,, Cardiac Risk Factors: HTN Stress Test Details Test: LEXISCAN HR Resting HR: 53 bpm Max Heart Rate (APMHR): 141.069515 bpm Max HR Achieved: 79 bpm Target HR (85% APMHR): 119.258053 bpm % of APMHR: 56.03 Recovery HR: 63 bpm BP Resting BP: 130/61 mmHg Max BP: 144/70 mmHg Recovery BP: 142.0/69.0 mmHg ECG Resting ECG: SINUS BRIDGETTE, 1 AVB, NS ST ABNS INFERIORLY AND LATERALLY Clinical Exercise duration: 04:02 min Highest Stage Achieved: Exercise capacity: 1.0 METs Stress ECG Conclusion PT HAD SOA, NO CP. RARE PAC. MILD EXAGGERATION OF BASELINE ST ABNS. UNREMARKABLE LEXISCAN STRESS. MYOVIEW IMAGES REPORTED SEPARATELY. Test Summary REST 04:27 . . 53 . 130/ 61 . . Stage 1 . . . . . . . Myoview Injected Stage 1 01:00 . . 75 . . . . Stage 2 01:00 . . 69 . 128/ 71 . . Stage 3 01:00 . . 72 . 112/ 76 . . Stage 4 01:00 . . 61 . . . . Stage 4 01:02 . . 62 . . . Stop exercise at 04:02 RECOVERY 01:00 . . 61 . 144/ 68 . . RECOVERY 02:00 . . 68 . 144/ 68 . . RECOVERY 03:00 . . 61 . 142/ 69 . . RECOVERY 03:22 . . 61 . 142/ 69 . . Electronically signed by : Graham Forrest, 02/15/2021 09:46:56
== END ==
PROVIDERS: PCP Family Medicine; Visit Provider Nurse Practitioner Family
DX: I10 Essential (primary) hypertension (principal); I44.0 Atrioventricular block, first degree; I48.0 Paroxysmal atrial fibrillation; N28.9 Disorder of kidney and ureter, unspecified; R06.00 Dyspnea, unspecified; R94.31 Abnormal electrocardiogram [ECG] [EKG]
CPT/HCPCS: 78452; 93017; A9502; J2785

== ENCOUNTER → 2021-02-19 09:15 | Outpatient (CLI) | payer MEDICARE, SELFPAY ==
--- NOTE | 2021-02-19 09:19 | XR_ITS ---
PROCEDURE: XR CHEST 2V CLINICAL HISTORY: PNEUMONIA COMPARISON: CT CHESTW CT chest w con from 10/06/[address] abdomen pelvis wo con from 10/19/[address] ABDOMEN PELVIS WO CON from 01/05/2020 CR XR CHEST 2V from 01/23/2021 CR XR CHEST 2V from 01/25/2021 CR XR CHEST 2V from 02/02/2021 FINDINGS: The cardiomediastinal silhouette and pulmonary vascularity are within normal limits. Increased density is present in the right lower lobe posteriorly. This appears to have been due to progressive pneumonia however, there are less air bronchograms at this and increasing density. A developing mass or loculated effusion is considered. Suggest chest CT with contrast for further evaluation. There are COPD changes Degenerative changes thoracic spine. Surgical clips are present in the epigastric region. IMPRESSION: Increasing density and less air bronchograms regarding the prominent area of increased density in the right lower lobe posteriorly. Developing pulmonary mass, volume loss, or loculated effusion or empyema/abscess is a consideration. Suggest chest CT with contrast for further evaluation Dictated by: Joshua Rubi MD 02/19/2021 09:51 Joshua Rubi MD in [place] 02/19/2021 09:51
== END ==
PROVIDERS: PCP Family Medicine; Visit Provider Family Medicine
DX: J18.9 Pneumonia, unspecified organism (principal)
CPT/HCPCS: 71046

== ENCOUNTER → 2021-03-09 13:11 | Outpatient (CLI) | payer MEDICARE, SELFPAY ==
[2021-03-09 13:16] LABS: Microscopic, Urine URINE MICROSCOPIC (MICROSCOPIC)
--- NOTE | 2021-03-09 13:32 | CT_ITS ---
PROCEDURE: CT CHEST WO CON CLINICAL INDICATION: ABN CXR Pneumonia with continued shortness of air and cough COMPARISON: CT CHESTW CT chest w con from 10/06/[address] ABDOMEN PELVIS WO CON from 09/06/2020 CR XR CHEST 2V from 02/19/2021 TECHNIQUE: Axial images obtained with sagittal and coronal reformats. All CT scans at the facility use one or more dose reduction, viz: automated exposure control, ma/kV adjustment per patient size (including targeted exams where dose is matched to indication, i.e. head), or iterative reconstruction technique. FINDINGS: HEART AND MEDIASTINAL STRUCTURES: No mediastinal or hilar mass or adenopathy. Coronary artery calcifications are present. LUNGS AND PLEURAL SPACES: There is dense consolidation involving the right lower lobe superior segment with masslike area consolidation involving the right lower lobe posteriorly contiguous with the superior segmental pneumonia. There is a small area of loculated effusion inferior to this dense area of consolidation. There is right lower lobe volume loss. Patchy infiltrate and/or atelectatic changes present in the right middle lobe posteriorly. There are numerous small nodular opacities in the left apex somewhat resembling a tree in bud pattern suggesting an area pneumonia. The left lower lobe is clear. BONY STRUCTURES: Degenerative changes midthoracic spine UPPER ABDOMEN: Prominent bilateral renal pelves. Moderate amount of retained colonic feces ADDITIONAL FINDINGS: No other significant abnormalities. IMPRESSION: 1. Pneumonia within the superior segment of the right lower lobe with masslike consolidation in the posterior basilar segment contiguous with the superior segmental pneumonia. There is right lower lobe volume loss. There is also atelectasis or infiltrate in the posterior aspect of the right middle lobe. Tree in bud pattern left apex suggesting pneumonia. Developing pulmonary nodules are not excluded and follow-up is suggested. Small loculated effusion right lung base posteriorly 2. Bilateral hydronephrosis. This is incompletely imaged. Bladder outlet obstruction or neurogenic bladder could cause this finding. Please correlate clinically. Dictated by: Joshua Rubi MD 03/09/2021 15:57 Joshua Rubi MD in [place] 03/09/2021 15:57
[2021-03-09 13:35] LABS: Basophils # 0.1 K/mm3 (0-0.2); Basophils % 0.6 % (0.1-2.0); Eosinophils # 0.2 K/mm3 (0.0-0.4); Eosinophils % 2.6 % (0.1-12.0); Hematocrit 33.9 % (42.0-52.0); Hemoglobin 10.9 g/dL (14.1-18.0); Lymphocytes # 1.2 K/mm3 (0.7-4.5); Lymphocytes % 12.8 % (10-50); Mean Corpuscular Hemoglobin 29.6 pg (27.0-31.2); Mean Corpuscular Volume 92.5 fl (80-94); Monocytes # 0.4 K/mm3 (0.1-1.0); Monocytes % 4.1 % (1.7-9.3); Neutrophils # 7.2 K/mm3 (1.8-7.8); Neutrophils % 79.9 % (37.0-80.0); Platelet Count 434 K/mm3 (142-424); Red Blood Count 3.66 M/mm3 (4.60-6.20); Red Cell Distribution Width 18.3 % (11.5-17.5)
[2021-03-09 13:50] LABS: Appearance,Urine TURBID (Clear); Bilirubin,Urine Negative (Negative); Blood, Urine 3+ (Negative); Color,Urine YELLOW (Yellow); Glucose,Urine (UA) Negative (Negative); Ketones,Urine Negative (Negative); Leukocyte Esterase,Urine 2+ (Negative); Nitrate,Urine Negative (Negative); Protein,Urine 2+ (Negative); Specific Gravity, Urine 1.025 (1.005-1.030); Urobilinogen,Urine 0.2 EU/dl (0.2)
[2021-03-09 13:59] LABS: Creatinine,Urine Random 82 mg/dL (Not Estab.)
[2021-03-09 14:08] LABS: Chloride 116 mmol/L (98-107); Potassium 5.7 mmoL/L (3.5-5.1); Sodium 142 mmol/L (136-145)
[2021-03-09 14:10] LABS: Blood Urea Nitrogen 44 mg/dl (9-20)
[2021-03-09 14:11] LABS: Anion Gap 18.7 mEq/L (5-15); Calcium 8.5 mg/dl (8.4-10.2); Carbon Dioxide 13 mmol/L (22.0-30.0); Estimated Glomerular Filt Rate 12 ml/min (>60); GFR (African American) 15 ML/MIN (>60); Glucose 174 mg/dl (74-100); Phosphorous 4.9 mg/dl (2.5-4.5)
[2021-03-09 14:46] LABS: Ferritin 150 ng/ml (17.9-464)
[2021-03-09 16:17] LABS: Intact Parathyroid Hormone 272.4 pg/mL (7.5-53.5)
[2021-03-09 16:32] LABS: Bacteria,Urine 3+ /lpf; RBC,Urine TNTC #/hpf (0-3); WBC,Urine TNTC #/hpf (0-3)
[2021-03-10 13:11] LABS: Calcium, Ionized 4.8 mg/dL (4.5-5.6)
== END ==
LOC: LAB 13:12 → RAD 13:31
PROVIDERS: PCP Family Medicine; Visit Provider Internal Medicine Nephrology
DX: N18.6 End stage renal disease; R93.89 Abnormal findings on diagnostic imaging of other specified body structures; Z99.2 Dependence on renal dialysis
CPT/HCPCS: 36415; 71250; 80069; 81001; 82330; 82570; 82728; 83970; 84155; 85025; 87086

== ENCOUNTER 2021-03-16 11:24 | Outpatient (CLI) | payer MEDICARE, SELFPAY ==
[2021-03-16 13:16] LABS: Microscopic, Urine URINE MICROSCOPIC (MICROSCOPIC)
[2021-03-16 13:26] VITALS: BMI 21.4
[2021-03-16 13:27] LABS: Appearance,Urine CLEAR (Clear); Bilirubin,Urine Negative (Negative); Blood, Urine 3+ (Negative); Color,Urine YELLOW (Yellow); Glucose,Urine (UA) Negative (Negative); Ketones,Urine Negative (Negative); Leukocyte Esterase,Urine 3+ (Negative); Nitrate,Urine Negative (Negative); Protein,Urine 2+ (Negative); Urobilinogen,Urine 0.2 EU/dl (0.2)
[2021-03-16 13:34] LABS: Bacteria,Urine 1+ /lpf; WBC,Urine 20-50 #/hpf (0-3)
[2021-03-16 13:43] LABS: Creatinine,Urine Random 62 mg/dL (Not Estab.)
== END 2021-03-16 11:45 | disposition home or self-care (01) ==
LOC: INF 11:25
PROVIDERS: Internal Medicine Nephrology; PCP Family Medicine; Visit Provider Family Medicine
DX: N13.39 Other hydronephrosis (principal); N40.0 Benign prostatic hyperplasia without lower urinary tract symptoms; N18.6 End stage renal disease; R33.9 Retention of urine, unspecified
CPT/HCPCS: 81001; 82570; 84155; 87086; G0463

== ENCOUNTER → 2021-03-21 12:04 | Outpatient (CLI) | payer MEDICARE, SELFPAY | PROVIDERS: Visit Provider Urology | DX: Z20.822 Contact with and (suspected) exposure to COVID-19 (principal) | CPT/HCPCS: U0003 ==

== ENCOUNTER 2021-03-29 15:27 | Inpatient (IN) | payer MEDICARE, SELFPAY ==
[2021-03-29] VITALS (11 sets, daily range): BP systolic 118–149; BP diastolic 55–74; PULSE 48–61; RESP 16–22; TEMP 36.6–38.2; O2SAT 95–100; BMI 21.6; BMI 21.9
--- NOTE | 2021-03-29 15:40 | CT_ITS ---
PROCEDURE: CT ABDOMEN PELVIS WO CON CLINICAL INDICATION: n/v Nausea, vomiting, abdominal pain COMPARISON: CT CT ABDOMEN PELVIS WO CON from 09/06/2020 TECHNIQUE: Axial images obtained with sagittal and coronal reformats. All CT scans at the facility use one or more dose reduction, viz: automated exposure control, ma/kV adjustment per patient size (including targeted exams where dose is matched to indication, i.e. head), or iterative reconstruction technique. FINDINGS: LOWER THORAX: Consolidation is present in the right lower lobe posteriorly. Atelectatic changes are present in the right upper lobe. Surgical clips are present at the GE junction ABDOMEN & PELVIS: Liver, spleen, adrenal glands, and pancreas have an unremarkable unenhanced appearance. Gallbladder wall appears slightly thickened with no radiopaque gallstones apparent. There is moderate bilateral hydronephrosis and hydroureter. There is thickening of the urinary bladder wall with mild ill definition of the bladder wall and minimal stranding of the pericholecystic fat. The prostate is enlarged at 5.7 cm. No renal or ureteral calculi are evident. No intestinal obstruction or free air is evident. There is a moderate amount of retained colonic feces. There is diffuse colonic diverticulosis but no evidence of diverticulitis. No evidence of appendicitis. Degenerative changes are present in the lumbar spine with mild lumbar scoliosis convex right IMPRESSION: 1. Mildly thickened urinary bladder with minimal haziness of the bladder wall peripherally raising the suspicion of cystitis. 2. Enlarged prostate. Moderate bilateral hydronephrosis and hydroureter. Chronic bladder outlet obstruction is considered 3. Colonic diverticulosis. No evidence of diverticulitis. 4. Consolidation in the right lower lobe posteriorly consistent with pneumonia and or volume loss. Dictated by: Joshua Rubi MD 03/30/2021 07:35 Joshua Rubi MD in [place] 03/30/2021 07:35
--- NOTE | 2021-03-29 15:40 | HMH.EDGENADL ---
ED Disposition Clinical Impression: Hyperkalemia Nausea & vomiting Qualifiers: Vomiting type: unspecified Vomiting Intractability: intractable Qualified Code(s): R11.2 - Nausea with vomiting, unspecified Medication adverse effect Qualifiers: Encounter type: initial encounter Qualified Code(s): T50.905A - Adverse effect of unspecified drugs, medicaments and biological substances, initial encounter Disposition: Admitted As Inpatient Condition on Discharge: Fair Referrals: Joe Shaffer MD [Primary Care Provider] - Time of Disposition: 19:51 - Critical Care Critical Care Time: Yes (65) Attestation: On , the high probability of a clinically significant, sudden or life threatening deterioration of the following system(s) required my full and direct attention, intervention and personal management. The time I documented below is in addition to time spent performing reported procedures but includes the following listed in this critical care notation. Vital system(s) involved:: Renal Failure My critical care processes included: Assessment & monitoring of V/S, Initial and Re-exams, Data Review/Interpretation, Coordinating Care, Medication Orders and management, Documentation Medical Decision Making - Medical Records Medical records reviewed: Yes: I reviewed the patient's medical records. - Mati Inquiry Pt receiving controlled substance: No Vital Signs: 03/29/21 15:28 03/29/21 16:50 03/29/21 16:52 Temperature 100.8 F H Temperature Source Oral Pulse Rate 58 L 53 L Respiratory Rate 16 18 Blood Pressure 149/68 H Blood Pressure [Right Arm] 139/68 Blood Pressure Mean Blood Pressure Mean [Right Arm] 91 02 Sat by Pulse Oximetry 98 100 Oxygen Delivery Method Room Air 03/29/21 17:17 03/29/21 18:48 03/29/21 19:00 Temperature Temperature Source Pulse Rate 59 L 48 L 61 Respiratory Rate 16 17 22 Blood Pressure 131/62 118/55 L Blood Pressure [Right Arm] Blood Pressure Mean 76 Blood Pressure Mean [Right Arm] 02 Sat by Pulse Oximetry 98 95 96 Oxygen Delivery Method 03/29/21 19:30 Temperature Temperature Source Pulse Rate 59 L Respiratory Rate 22 Blood Pressure 118/57 L Blood Pressure [Right Arm] Blood Pressure Mean 79 Blood Pressure Mean [Right Arm] 02 Sat by Pulse Oximetry 97 Oxygen Delivery Method - Lab Data Lab results reviewed: Yes: I reviewed the patient's lab results. Lab Results 03/29/21 15:53: Urine Color Yellow, Urine Appearance Cloudy, Urine pH 6.0, Ur Specific [place] 1.020, Urine Protein 2+, Urine Glucose (UA) Negative, Urine Ketones Negative, Urine Blood 3+, Urine Nitrate Negative, Urine Bilirubin Negative, Urine Urobilinogen 0.2, Ur Leukocyte Esterase 3+ A, Urine RBC Tntc, Urine WBC Tntc, Ur Squamous Epith Cells None, Urine Bacteria 2+ 03/29/21 15:53: WBC 5.5, RBC 3.55 L, Hgb 10.5 L, Hct 32.2 L, MCV 90.7, MCH 29.7, MCHC 32.7, RDW 18.1 H, Plt Count 300, MPV 7.5, Neut % (Auto) 86.2 H, Lymph % (Auto) 8.2 L, [place] % (Auto) 4.5, Eos % (Auto) 0.2, Baso % (Auto) 0.8, Neut # (Auto) 4.8, Lymph # (Auto) 0.5 L, [place] # (Auto) 0.3, Eos # (Auto) 0.0, Baso # (Auto) 0.0, Total Counted 100, Neutrophils % (Manual) 85 H, Lymphocytes % (Manual) 8 L, Monocytes % (Manual) 4, Eosinophils % (Manual) 2, Basophils % (Manual) 1.0, Nucleated RBCs 3, Platelet Estimate Normal, Anisocytosis 2+ 03/29/21 15:53: Sodium 133 L, Potassium 6.0 H, Chloride 106, Carbon Dioxide 20 L, Anion Gap 13.0, BUN 38 H, Creatinine 4.10 H, Estimated Creat Clear 13, Estimated GFR 14 L*, Est GFR ( Amer) 17 L*, Glucose 149 H, Calcium 8.5, Total Bilirubin 0.2, AST 25, ALT 21, Alkaline Phosphatase 118, Troponin I 0.02, Total Protein 6.4 D, Albumin 3.6, Globulin 2.8, Albumin/Globulin Ratio 1.3, Lipase 47 03/29/21 17:40: SARS-CoV-2 (PCR) Not detected, Influenza A Untype (PCR) Not detected, Influenza Type B (PCR) Not detected 03/29/21 18:29: Troponin I 0.02 03/29/21 18:29: Sodium 136, Potassium 5.7 H, Chloride 108
[2021-03-29 16:02] LABS: Microscopic, Urine URINE MICROSCOPIC (MICROSCOPIC)
[2021-03-29 16:04] LABS: Appearance,Urine CLOUDY (Clear); Bilirubin,Urine Negative (Negative); Blood, Urine 3+ (Negative); Color,Urine YELLOW (Yellow); Glucose,Urine (UA) Negative (Negative); Ketones,Urine Negative (Negative); Leukocyte Esterase,Urine 3+ (Negative); Nitrate,Urine Negative (Negative); Protein,Urine 2+ (Negative); Urobilinogen,Urine 0.2 EU/dl (0.2)
[2021-03-29 16:08] LABS: Chloride 106 mmol/L (98-107); Sodium 133 mmol/L (136-145)
[2021-03-29 16:09] LABS: Bacteria,Urine 2+ /lpf; Basophils % 0.8 % (0.1-2.0); Eosinophils % 0.2 % (0.1-12.0); Hematocrit 32.2 % (42.0-52.0); Hemoglobin 10.5 g/dL (14.1-18.0); Lymphocytes # 0.5 K/mm3 (0.7-4.5); Lymphocytes % 8.2 % (10-50); Mean Corpuscular HGB Conc 32.7 g/dL (31.8-35.4); Mean Corpuscular Hemoglobin 29.7 pg (27.0-31.2); Mean Corpuscular Volume 90.7 fl (80-94); Mean Platelet Volume 7.5 fl (7.4-10.4); Monocytes # 0.3 K/mm3 (0.1-1.0); Monocytes % 4.5 % (1.7-9.3); Neutrophils # 4.8 K/mm3 (1.8-7.8); Neutrophils % 86.2 % (37.0-80.0); Platelet Count 300 K/mm3 (142-424); RBC,Urine TNTC #/hpf (0-3); Red Blood Count 3.55 M/mm3 (4.60-6.20); Red Cell Distribution Width 18.1 % (11.5-17.5); WBC,Urine TNTC #/hpf (0-3); White Blood Count 5.5 K/mm3 (4.8-10.8)
[2021-03-29 16:10] LABS: MANUAL DIFFERENTIAL MANUAL DIFFERENTIAL (MANUAL DIFF)
[2021-03-29 16:11] LABS: Alanine Aminotransferase 21 U/L (12-78); Alkaline Phosphatase 118 U/L (38-126); Aspartate Amino Transferase 25 U/L (17-59); Bilirubin,Total 0.2 mg/dl (0.2-1.3); Blood Urea Nitrogen 38 mg/dl (9-20); Carbon Dioxide 20 mmol/L (22.0-30.0); Creatinine Clearance Estimated 13 mL/min (50-200); Estimated Glomerular Filt Rate 14 ml/min (>60); GFR (African American) 17 ML/MIN (>60)
[2021-03-29 16:12] LABS: Albumin Level 3.6 g/dl (3.5-5.0); Albumin/Globulin Ratio 1.3 (1.1-1.8); Calcium 8.5 mg/dl (8.4-10.2); Globulin 2.8 g/dL (1.3-3.2); Glucose 149 mg/dl (74-100); Lipase 47 U/L (23-300); Total Protein,Serum 6.4 g/dl (6.3-8.2)
--- NOTE | 2021-03-29 16:19 | ECG_ITS ---
APPROVED REPORT Exam: Resting ECG HR:52 bpm ECG Measurements Heart Rate 52 AXES IN 210 P 50 QRSd 90 QRS 57 QT 420 T 43 QTc 390 Conclusion Sinus bradycardia with 1st degree AV block Otherwise normal ECG Electronically signed by : Anup Maldonado, 04/01/2021 21:09:32
[2021-03-29 16:24] LABS: Troponin I 0.02 ng/ml (0.00-0.034)
[2021-03-29 16:36] LABS: Anisocytosis 2+; Eosinophils % 2 % (0-3); Lymphocytes % 8 % (10-50); Monocytes % 4 % (2-9); Neutrophils % 85 % (42-76); Nucleated Red Blood Cells 3; Platelet Estimate Normal; Total Cells Counted 100
[2021-03-29 17:47] LABS: Coronavirus 19, PCR Not Detected (NotDetected); Influenza A, PCR Not Detected (NotDetected); Influenza B, PCR Not Detected (NotDetected)
[2021-03-29 17:57] LABS: Creatinine Clearance Estimated 13 mL/min (50-200)
[2021-03-29 19:04] LABS: Troponin I 0.02 ng/ml (0.00-0.034)
[2021-03-29 19:36] LABS: Sodium 136 mmol/L (136-145)
[2021-03-29 19:37] LABS: Chloride 108 mmol/L (98-107)
[2021-03-29 19:38] LABS: Anion Gap 13.7 mEq/L (5-15); Blood Urea Nitrogen 37 mg/dl (9-20); Carbon Dioxide 20 mmol/L (22.0-30.0); Estimated Glomerular Filt Rate 14 ml/min (>60); GFR (African American) 17 ML/MIN (>60)
[2021-03-29 19:39] LABS: Albumin Level 3.5 g/dl (3.5-5.0); Calcium 8.9 mg/dl (8.4-10.2); Glucose 70 mg/dl (74-100)
[2021-03-29 19:45] LABS: Potassium 5.7 mmoL/L (3.5-5.1)
--- NOTE | 2021-03-29 21:23 | PC.NURSE ---
pt arrived to floor via wheelchair from ED
[2021-03-29 22:13] LABS: Troponin I 0.03 ng/ml (0.00-0.034)
[2021-03-29 23:15] LABS: Albumin Level 3.2 g/dl (3.5-5.0); Chloride 107 mmol/L (98-107); Potassium 5.7 mmoL/L (3.5-5.1); Sodium 134 mmol/L (136-145)
[2021-03-29 23:18] LABS: Anion Gap 13.7 mEq/L (5-15); Blood Urea Nitrogen 36 mg/dl (9-20); Calcium 8.2 mg/dl (8.4-10.2); Carbon Dioxide 19 mmol/L (22.0-30.0); Creatinine Clearance Estimated 13 mL/min (50-200); Estimated Glomerular Filt Rate 13 ml/min (>60); GFR (African American) 16 ML/MIN (>60); Glucose 137 mg/dl (74-100); Phosphorous 3.5 mg/dl (2.5-4.5)
[2021-03-30] VITALS (9 sets, daily range): BP systolic 118–148; BP diastolic 60–76; PULSE 45–98; RESP 16–18; TEMP 36.6–37.2; O2SAT 90–99; BMI 21.8; BMI 21.7
[2021-03-30 07:05] LABS: Basophils % 0.7 % (0.1-2.0); Eosinophils % 0.9 % (0.1-12.0); Hematocrit 31.6 % (42.0-52.0); Hemoglobin 10.1 g/dL (14.1-18.0); Lymphocytes # 0.6 K/mm3 (0.7-4.5); Lymphocytes % 17.5 % (10-50); Mean Corpuscular Hemoglobin 29.1 pg (27.0-31.2); Monocytes # 0.3 K/mm3 (0.1-1.0); Monocytes % 6.8 % (1.7-9.3); Neutrophils # 2.7 K/mm3 (1.8-7.8); Neutrophils % 74.1 % (37.0-80.0); Platelet Count 265 K/mm3 (142-424); Red Blood Count 3.47 M/mm3 (4.60-6.20); Red Cell Distribution Width 18.1 % (11.5-17.5); White Blood Count 3.6 K/mm3 (4.8-10.8)
[2021-03-30 07:20] LABS: Anion Gap 14.6 mEq/L (5-15); Blood Urea Nitrogen 38 mg/dl (9-20); Calcium 8.5 mg/dl (8.4-10.2); Carbon Dioxide 20 mmol/L (22.0-30.0); Chloride 107 mmol/L (98-107); Creatinine Clearance Estimated 13 mL/min (50-200); Estimated Glomerular Filt Rate 14 ml/min (>60); GFR (African American) 17 ML/MIN (>60); Glucose 97 mg/dl (74-100); Magnesium 1.8 mg/dl (1.6-2.3); Phosphorous 3.4 mg/dl (2.5-4.5); Sodium 135 mmol/L (136-145)
[2021-03-30 07:21] LABS: Potassium 6.6 mmoL/L (3.5-5.1)
[2021-03-30 07:55] LABS: Albumin Level 3.2 g/dl (3.5-5.0); Anion Gap 12.4 mEq/L (5-15); Blood Urea Nitrogen 37 mg/dl (9-20); Calcium 8.5 mg/dl (8.4-10.2); Carbon Dioxide 20 mmol/L (22.0-30.0); Chloride 107 mmol/L (98-107); Creatinine Clearance Estimated 13 mL/min (50-200); Estimated Glomerular Filt Rate 14 ml/min (>60); GFR (African American) 17 ML/MIN (>60); Glucose 98 mg/dl (74-100); Phosphorous 3.5 mg/dl (2.5-4.5); Sodium 133 mmol/L (136-145)
[2021-03-30 07:59] LABS: Potassium 6.4 mmoL/L (3.5-5.1)
--- NOTE | 2021-03-30 10:54 | HMH.HP ---
*Admission Date: 03/30/21 <Stacy Diego - 03/30/21 11:06> *Chief complaint: abdominal pain, vomiting <Stacy Dieog 03/30/21 11:06> *History of present illness: Mr. Roque is an 81-year-old male with a history of BPH, CKD, and kidney stones. He has had numerous prostate surgeries and just had his most recent surgery on March 19. He states his catheter was removed on March 26. He has had blood in his urine off and on since the procedure. He states last night his food did not taste right and he began vomiting. He states his tongue was sore as well. He came to the urgent treatment center for evaluation. He states he was started on Bactrim after his procedure and he was concerned that this was making him sick. He had a CT of the abdomen and pelvis which showed a mildly thickened urinary bladder suspicious for cystitis, and enlarged prostate with moderate bilateral hydronephrosis and hydroureter, and consolidation in the right lower lobe consistent with pneumonia or volume loss. His labs revealed a creatinine of 4 and a potassium of 6. He was given calcium gluconate, insulin/D50, and an albuterol neb treatment. It had been recommended to the patient that he have dialysis but he had refused in the past. The ER physician felt he needed to be admitted. His Bactrim was discontinued. This a.m. he is feeling better. He still has some epigastric abdominal pain but he has had no further vomiting or nausea. His BUN and creatinine have remained about the same and his potassium has further elevated to 6.4. <Stacy Diego - 03/30/21 11:06> [facility] History I have reviewed the patient's past medical history: Yes <Stacy Diego 03/30/21 11:06> Medical History: Reports:: Atrial Fibrillation, BPH, Gastroesophageal Reflux Disease(GERD), Hyperlipidemia, Hypertension, Kidney Stones, Peripheral Vascular Disease, Renal Insufficiency, Transient Ischemic Attacks (TIA), Urinary Tract Infection Denies:: Cancer, Diabetes Mellitus Type 1, Diabetes Mellitus Type 2, Internal Pacemaker, MRSA, Seizures <Stacy Diego 03/30/21 11:06> *Have you ever received a pneumonia vaccine?: Yes <Stacy Diego 03/30/21 11:06> *Have you received a flu vaccine this season?: Yes <Stacy Diego 03/30/21 11:06> Other Medical History: Reports: Anemia, Arthritis, Blood Transfusion Reaction, Cataracts <Stacy Diego 03/30/21 11:06> Laterality Cases: Right: Carpal Tunnel Release, Bilateral: Other <Stacy Diego 03/30/21 11:06> Other Surgeries: Yes: No Previous Surgery, Colonoscopy, EGD, Hernia Repair (bilateral inguinal 2015), Other (gastrectomy 1976, numerous prostate surgeries). No: Pacemaker <Stacy Diego 03/30/21 11:06> Amputation: No <Stacy Diego 03/30/21 11:06> Fractures: No <Stacy Diego 03/30/21 11:06> - *Social History Last grade of school completed: 11th or 12th <Stacy Diego 03/30/21 11:06> Smoking Status: Never smoker <Stacy Diego 03/30/21 11:06> Alcohol Intake: never <Stacy Diego 03/30/21 11:06> Alcohol Intake Frequency:: other <Stacy Diego 03/30/21 11:06> Substance Use Type: denies use <Stacy Diego 03/30/21 11:06> *Occupational Status:: retired <Stacy Diego 03/30/21 11:06> Housing: house <Stacy Diego 03/30/21 11:06> Household Members: spouse <Stacy Diego 03/30/21 11:06> *Travel in the last 8 weeks: None <Stacy Diego 03/30/21 11:06> Family Hx:: Coronary Artery Disease, Diabetes, Hypertension <Stacy Diego 03/30/21 11:06> Review of Systems - Constitutional Denies chills, Denies fever(s) <Stacy Diego 03/30/21 11:06> - Eyes Denies blurry vision, Denies double vision <Stacy Diego 03/30/21 11:06> - ENT Denies nasal congestion, Denies sore throat <Stacy Diego 03/30/21 11:06> - *Cardiovascular Denies chest pain, Denies shortness of breath <Stacy Diego - 03/30/21 11:06> - *Respiratory Denies chest congestion, Denies cough <Stacy Diego - 03/30/21 11:06> - *Gastrointesti
[2021-03-30 11:42] LABS: Albumin Level 3.1 g/dl (3.5-5.0); Anion Gap 15.6 mEq/L (5-15); Blood Urea Nitrogen 37 mg/dl (9-20); Calcium 8.3 mg/dl (8.4-10.2); Carbon Dioxide 20 mmol/L (22.0-30.0); Chloride 106 mmol/L (98-107); Creatinine Clearance Estimated 14 mL/min (50-200); Estimated Glomerular Filt Rate 15 ml/min (>60); GFR (African American) 18 ML/MIN (>60); Glucose 143 mg/dl (74-100); Phosphorous 3.3 mg/dl (2.5-4.5); Sodium 135 mmol/L (136-145)
[2021-03-30 12:16] LABS: Potassium 6.6 mmoL/L (3.5-5.1)
--- NOTE | 2021-03-30 12:33 | PC.NURSE ---
1215- Spoke to lab verified pt's name, and room number 1229- Spoke to MD Shaffer regarding critical labs. NNO
--- NOTE | 2021-03-30 12:36 | PC.NURSE ---
LATE ENTRY 0720- spoke to Makenzie in the lab. verified name, , and room number 0755- reported critical labs to Rakesh Diego APRN during rounds
--- NOTE | 2021-03-30 17:53 | DIET.NUTRFU ---
Pt with severe protein calorie malnutrition rt CKD with loss 22% BW past 6m. Renal diet with daily protein shake(not ensure which is high in K) given. He ate 75% of first meal. Diet edu/counseling for malnutrition with CKD provided as well as for diverticulosis. Pt encouraged to reach out with questions/concerns post dc. Continuing to monitor to alter nutritional care plan as indicated.
--- NOTE | 2021-03-30 18:12 | P.CONPHA_ITS ---
[facility] Pharmacy VTE Monitoring - Patient Demographics Admission date: 03/30/21 Report Date: 03/30/21 Time: 18:12 Allergies/Adverse Reactions: Patient Allergies No Known Allergies Allergy (Verified 02/19/21 08:53) Height: 1.73 m Weight: 65 kg Patient Problems: Current Active Problems Hypertension (Chronic) CKD (chronic kidney disease) stage 4, GFR 15-29 ml/min (Chronic) Nausea & vomiting (Acute) Medication adverse effect (Acute) Hyperkalemia (Acute) BPH (benign prostatic hyperplasia) (Chronic) History of prostate surgery (Chronic) - VTE Risk Labs: VTE Related Lab Results Hgb 10.1 g/dL (14.1-18.0) L 03/30/21 06:53 Hct 31.6 % (42.0-52.0) L 03/30/21 06:53 Plt Count 265 K/mm3 (142-424) 03/30/21 06:53 BUN 37 mg/dl (9-20) H 03/30/21 10:58 Creatinine 4.00 mg/dl (0.66-1.25) H 03/30/21 10:58 Estimated Creat Clear 14 mL/min (50-200) 03/30/21 10:58 Was VTE Risk Assessment Performed: Yes VTE Risk Level: Very Low Risk - Prophylaxis Types of VTE Prophylaxis: IPCS Thigh High Location of Applied Device: Bilateral Lower Extremeties (ICDS), Not Applicable
[2021-03-31] VITALS: BP 118/65; PULSE 50; PULSE 70; RESP 18; TEMP 36.9; O2SAT 97
[2021-03-31 03:08] VITALS: BP 117/63; PULSE 51; RESP 18; TEMP 36.9; O2SAT 97
[2021-03-31 04:00] VITALS: PULSE 45
[2021-03-31 05:00] VITALS: BMI 21.1
--- NOTE | 2021-03-31 06:14 | PC.NURSE ---
pt has rested well t/o shift, no complaints of pain, remains on room with with lungs CTA, ambulating independently to BR
[2021-03-31 07:39] LABS: Basophils # 0.1 K/mm3 (0-0.2); Basophils % 1.1 % (0.1-2.0); Eosinophils # 0.2 K/mm3 (0.0-0.4); Eosinophils % 3.7 % (0.1-12.0); Hematocrit 31.8 % (42.0-52.0); Hemoglobin 9.9 g/dL (14.1-18.0); Lymphocytes # 1.1 K/mm3 (0.7-4.5); Lymphocytes % 19.6 % (10-50); Mean Corpuscular Volume 93.4 fl (80-94); Mean Platelet Volume 7.6 fl (7.4-10.4); Monocytes # 0.5 K/mm3 (0.1-1.0); Monocytes % 9.3 % (1.7-9.3); Neutrophils # 3.6 K/mm3 (1.8-7.8); Neutrophils % 66.3 % (37.0-80.0); Platelet Count 278 K/mm3 (142-424); Red Cell Distribution Width 18.2 % (11.5-17.5); White Blood Count 5.5 K/mm3 (4.8-10.8)
[2021-03-31 07:46] LABS: Anion Gap 14.8 mEq/L (5-15); Blood Urea Nitrogen 34 mg/dl (9-20); Calcium 8.1 mg/dl (8.4-10.2); Carbon Dioxide 21 mmol/L (22.0-30.0); Chloride 107 mmol/L (98-107); Creatinine Clearance Estimated 14 mL/min (50-200); Estimated Glomerular Filt Rate 16 ml/min (>60); GFR (African American) 19 ML/MIN (>60); Glucose 120 mg/dl (74-100); Potassium 4.8 mmoL/L (3.5-5.1); Sodium 138 mmol/L (136-145)
[2021-03-31 08:00] VITALS: BP 121/59; PULSE 76; PULSE 80; RESP 20; TEMP 36.6; O2SAT 96
--- NOTE | 2021-03-31 09:13 | HMH.ACPN2 ---
Internal Medicine - PN: Subj *Date: 03/31/21 *Time: 09:13 Interval history: Patient feels better today, no abd pain, no vomiting overnight. He did have diarrhea after taking Kayexalate. He is anxious to go home. Exam Vital signs and Labs for Last 24 Hours: Temp Pulse Resp BP Pulse Ox 98.5 F 45 L 18 117/63 97 03/31/21 03:08 03/31/21 04:00 03/31/21 03:08 03/31/21 03:08 03/31/21 03:08 Laboratory Results - last 24 hr 03/30/21 10:58: Sodium 135 L, Potassium 6.6 H*, Chloride 106, Carbon Dioxide 20 L, Anion Gap 15.6 H, BUN 37 H, Creatinine 4.00 H, Estimated Creat Clear 14, Estimated GFR 15 L*, Est GFR ( Amer) 18 L*, Glucose 143 H D, Calcium 8.3 L, Phosphorus 3.3, Albumin 3.1 L 03/31/21 06:35: WBC 5.5 D, RBC 3.40 L, Hgb 9.9 L, Hct 31.8 L, MCV 93.4, MCH 29.0, MCHC 31.0 L, RDW 18.2 H, Plt Count 278, MPV 7.6, Neut % (Auto) 66.3, Lymph % (Auto) 19.6, [place] % (Auto) 9.3, Eos % (Auto) 3.7, Baso % (Auto) 1.1, Neut # (Auto) 3.6, Lymph # (Auto) 1.1, [place] # (Auto) 0.5, Eos # (Auto) 0.2, Baso # (Auto) 0.1 03/31/21 06:35: Sodium 138, Potassium 4.8 D, Chloride 107, Carbon Dioxide 21 L, Anion Gap 14.8, BUN 34 H, Creatinine 3.70 H, Estimated Creat Clear 14, Estimated GFR 16 L*, Est GFR ( Amer) 19 L*, Glucose 120 H, Calcium 8.1 L Vital Signs - 24 hr 03/30/21 11:35 03/30/21 12:00 03/30/21 16:00 Temperature 98.6 F Pulse Rate 54 L 72 Pulse Rate [Left Radial] Pulse Rate [Right Brachial] 56 L 48 L Respiratory Rate 18 16 Blood Pressure [Right Arm] 148/76 H 118/64 02 Sat by Pulse Oximetry 99 03/30/21 19:44 03/30/21 20:00 03/31/21 00:00 Temperature 98.9 F 98.4 F Pulse Rate 50 L 70 Pulse Rate [Left Radial] 50 L Pulse Rate [Right Brachial] 51 L Respiratory Rate 18 18 Blood Pressure [Right Arm] 131/65 118/65 02 Sat by Pulse Oximetry 94 L 97 03/31/21 03:08 03/31/21 04:00 Temperature 98.5 F Pulse Rate 45 L Pulse Rate [Left Radial] 51 L Pulse Rate [Right Brachial] Respiratory Rate 18 Blood Pressure [Right Arm] 117/63 02 Sat by Pulse Oximetry 97 I & O for Last 24 hours: Intake & Output 03/28/21 03/29/21 03/30/21 03/31/21 23:59 23:59 23:59 23:59 Intake Total 1000 / 1000 600 / 600 Output Total 400 / 600 200 / 200 Balance 1000 / 1000 200 / 0 -200 / -200 Weight 144 lb 4.8 oz 143 lb 4.807 oz 139 lb 9 oz Microbiology Reports for the Last 24 Hours: Microbiology 03/29/21 15:53 Urine,Clean Catch Urine Culture - Preliminary - Constitutional no acute distress - *Routine HEENT Exam Head: Present: normocephalic Eye: Present: EOMI, PERRL ENT: Present: mucous membranes moist - *Routine Neck Exam Present: supple. Absent: lymphadenopathy - *Routine Respiratory Exam Present: CTA bilaterally - *Routine Cardiovascular Exam Present: RRR - *Routine Abdominal Exam Present: soft, normoactive bowel sounds. Absent: tenderness - *Routine Extremities Exam Absent: cyanosis, clubbing, edema - *Routine Skin Exam Present: warm. Absent: rash - *Routine Neurological Exam Present: alert, oriented X3 Assessment and Plan (1) Nausea & vomiting Status: Acute Qualifiers: Vomiting type: unspecified Vomiting Intractability: intractable Qualified Code(s): R11.2 - Nausea with vomiting, unspecified Category: Medical Code(s): R11.2 - Nausea with vomiting, unspecified (2) Medication adverse effect Status: Acute Qualifiers: Encounter type: initial encounter Qualified Code(s): T50.905A - Adverse effect of unspecified drugs, medicaments and biological substances, initial encounter Category: Medical Code(s): T50.905A - Adverse effect of unspecified drugs, medicaments and biological substances, initial encounter (3) Hyperkalemia Status: Acute Category: Medical Code(s): E87.5 - Hyperkalemia (4) BPH (benign prostatic hyperplasia) Status: Chronic Category: Medical Code(s): N40.0 - Benign prostatic hyperplasia without lower ur
[2021-03-31 09:15] VITALS: O2SAT 96
[2021-03-31 12:00] VITALS: BP 106/60; PULSE 50; PULSE 53; RESP 18; TEMP 36.7; O2SAT 99
--- NOTE | 2021-04-03 22:40 | HMH.DCSUM ---
General - General Admission date:: 03/30/21 Discharge date: 03/31/21 HPI HPI: Mr. Roque is an 81-year-old male with a history of BPH, CKD, and kidney stones. He has had numerous prostate surgeries and just had his most recent surgery on March 19. He states his catheter was removed on March 26. He has had blood in his urine off and on since the procedure. He states last night his food did not taste right and he began vomiting. He states his tongue was sore as well. He came to the urgent treatment center for evaluation. He states he was started on Bactrim after his procedure and he was concerned that this was making him sick. He had a CT of the abdomen and pelvis which showed a mildly thickened urinary bladder suspicious for cystitis, and enlarged prostate with moderate bilateral hydronephrosis and hydroureter, and consolidation in the right lower lobe consistent with pneumonia or volume loss. His labs revealed a creatinine of 4 and a potassium of 6. He was given calcium gluconate, insulin/D50, and an albuterol neb treatment. It had been recommended to the patient that he have dialysis but he had refused in the past. The ER physician felt he needed to be admitted. His Bactrim was discontinued. This a.m. he is feeling better. He still has some epigastric abdominal pain but he has had no further vomiting or nausea. His BUN and creatinine have remained about the same and his potassium has further elevated to 6.4. Hospital Course Hospital Course: The patient's CT of the abdomen and pelvis showed a mildly thickened urinary bladder with haziness of the bladder wall raising the suspicion of cystitis. An enlarged prostate was seen with moderate bilateral hydronephrosis and hydroureter. The patient did have a previous urine culture showing yeast. Diflucan was added for this and the patient was started on antiemetics. His hyperkalemia was treated and his renal function was monitored. By 03/31/2021, he felt better and had no further abdominal pain or vomiting. He did have diarrhea after receiving Kayexalate. He was anxious to go home. His potassium normalized and his renal function improved. His final urine culture showed mixed organisms suggesting contamination. He was stable to be discharged home and will follow up with urology in a week. Objective Vital signs: Temp Pulse Resp BP Pulse Ox 98.1 F 53 L 18 106/60 L 99 03/31/21 12:00 03/31/21 12:00 03/31/21 12:00 03/31/21 12:00 03/31/21 12:00 Narrative: - Constitutional no acute distress - *Routine HEENT Exam Head: Present: normocephalic Eye: Present: EOMI, PERRL ENT: Present: mucous membranes moist - *Routine Neck Exam Present: supple. Absent: lymphadenopathy - *Routine Respiratory Exam Present: CTA bilaterally - *Routine Cardiovascular Exam Present: RRR - *Routine Abdominal Exam Present: soft, normoactive bowel sounds. Absent: tenderness - *Routine Extremities Exam Absent: cyanosis, clubbing, edema - *Routine Skin Exam Present: warm. Absent: rash - *Routine Neurological Exam Present: alert, oriented X3 DS: Diagnosis - Discharge Diagnosis (1) Nausea & vomiting Status: Acute (2) Medication adverse effect Status: Acute (3) Hyperkalemia Status: Acute (4) BPH (benign prostatic hyperplasia) Status: Chronic (5) History of prostate surgery Status: Chronic (6) CKD (chronic kidney disease) stage 4, GFR 15-29 ml/min Status: Chronic (7) Hypertension Status: Chronic Discharge Plan - Patient Discharge Instructions ACTIVITY: Continue current activity DIET: advance to your usual diet Patient Instructions: DI for Hyperkalemia, DI for Nausea -- Adult, High-Potassium Diet - Follow up Plan Follow up with: Joe Shaffer MD [Primary Care Provider] - 04/05/21 (Call office Friday for appointment time.) Disposition: Home, Self-Care Condition at discharge:: Stable Home Medications: Home Medi
== END 2021-03-31 13:40 | disposition home or self-care (01) | DRG 641 ==
LOC: ER 19:52 → 2ND 20:43
PROVIDERS: Admitting Provider Family Medicine; Emergency Provider Family Medicine; PCP Family Medicine; Visit Provider Family Medicine
DX: E87.5 Hyperkalemia (principal); N18.4 Chronic kidney disease, stage 4 (severe); Z20.822 Contact with and (suspected) exposure to COVID-19; I12.9 Hypertensive chronic kidney disease with stage 1 through stage 4 chronic kidney disease, or unspecified chronic kidney disease; I73.9 Peripheral vascular disease, unspecified; Z86.73 Personal history of transient ischemic attack (TIA), and cerebral infarction without residual deficits; R11.2 Nausea with vomiting, unspecified; N40.0 Benign prostatic hyperplasia without lower urinary tract symptoms; R10.13 Epigastric pain; T36.8X5A Adverse effect of other systemic antibiotics, initial encounter; K21.9 Gastro-esophageal reflux disease without esophagitis; I48.91 Unspecified atrial fibrillation; E78.5 Hyperlipidemia, unspecified
CPT/HCPCS: 36415; 74176; 80048; 80053; 80069; 81001; 83690; 83735; 84100; 84484; 85007; 85025; 87086; 93005; 99284; G0378; J1450; J2405; U0003

== ENCOUNTER 2021-10-31 08:13 | Outpatient (CLI) | payer MEDICARE, SELFPAY ==
[2021-10-31 09:07] VITALS: BP 160/75; PULSE 68; RESP 18; TEMP 36.6; O2SAT 99
[2021-10-31 09:45] VITALS: BP 158/80; PULSE 71; RESP 18; O2SAT 99
== END 2021-10-31 09:50 | disposition home or self-care (01) ==
LOC: INF 08:14
PROVIDERS: PCP Family Medicine; Visit Provider Family Medicine
DX: D50.9 Iron deficiency anemia, unspecified (principal)
CPT/HCPCS: 96365; J1439

== ENCOUNTER 2021-11-07 08:47 | Outpatient (CLI) | payer MEDICARE, SELFPAY ==
[2021-11-07 09:22] VITALS: BP 137/97; PULSE 80; RESP 18; TEMP 36.2; O2SAT 99
[2021-11-07 10:02] VITALS: BP 150/80; PULSE 60; RESP 18; O2SAT 99
== END 2021-11-07 10:02 | disposition home or self-care (01) ==
LOC: INF 08:48
PROVIDERS: PCP Family Medicine; Visit Provider Family Medicine
DX: D50.9 Iron deficiency anemia, unspecified (principal)
CPT/HCPCS: 96365; J1439

== ENCOUNTER 2021-12-11 14:23 | Emergency (ER) | payer MEDICARE, SELFPAY ==
[2021-12-11] VITALS (10 sets, daily range): BP systolic 130–155; BP diastolic 61–84; PULSE 71–86; RESP 18–22; TEMP 36.4; O2SAT 96–100; BMI 21.9
--- NOTE | 2021-12-11 14:35 | HMH.EDGENADL ---
ED Disposition Clinical Impression: Metabolic acidosis Pancreatitis Qualifiers: Chronicity: acute Pancreatitis type: unspecified pancreatitis type Acute pancreatitis complication: no infection or necrosis Qualified Code(s): K85.90 - Acute pancreatitis without necrosis or infection, unspecified ARF (acute renal failure) Qualifiers: Acute renal failure type: unspecified Qualified Code(s): N17.9 - Acute kidney failure, unspecified Disposition: Xfer Short-Term Hosp Condition on Discharge: Good Instructions: DI for Diarrhea and Traveler's Diarrhea -- Adult, DI for Diarrhea and Traveler's Diarrhea -- Child, DI for Nausea -- Adult, DI for Nausea -- Child Referrals: Joe Shaffer MD [Primary Care Provider] - Forms: Transfer Record - ED - Critical Care Critical Care Time: Yes Attestation: On 12/11/21, the high probability of a clinically significant, sudden or life threatening deterioration of the following system(s) required my full and direct attention, intervention and personal management. The time I documented below is in addition to time spent performing reported procedures but includes the following listed in this critical care notation. Total Critical Care Time: 35 Vital system(s) involved:: Metabolic Failure, Renal Failure My critical care processes included: Assessment & monitoring of V/S, Initial and Re-exams, Data Review/Interpretation, Coordinating Care, Medication Orders and management, Documentation Medical Decision Making - Medical Records Medical records reviewed: Yes: I reviewed the patient's medical records. - Mati Inquiry Pt receiving controlled substance: No Vital Signs: 12/11/21 14:27 12/11/21 14:30 12/11/21 15:00 Temperature 97.6 F Temperature Source Oral Pulse Rate 86 71 Pulse Rate [Left Radial] 84 Respiratory Rate 20 Blood Pressure 130/61 137/68 Blood Pressure [Right Arm] 130/61 Blood Pressure Mean [Right Arm] 84 02 Sat by Pulse Oximetry 99 96 100 Oxygen Delivery Method Room Air 12/11/21 16:15 12/11/21 16:47 Temperature Temperature Source Pulse Rate 76 Pulse Rate [Left Radial] Respiratory Rate 21 22 Blood Pressure 142/67 H 137/75 Blood Pressure [Right Arm] Blood Pressure Mean [Right Arm] 02 Sat by Pulse Oximetry 97 Oxygen Delivery Method - Lab Data Lab Results 12/11/21 14:45: WBC 15.1 H, RBC 3.70 L, Hgb 11.7 L, Hct 38.1 L, MCV 103.0 H, MCH 31.7 H, MCHC 30.7 L, RDW 17.9 H, Plt Count 449 H, MPV 8.3, Neut % (Auto) 91.2 H, Lymph % (Auto) 4.8 L, [place] % (Auto) 2.5, Eos % (Auto) 1.3, Baso % (Auto) 0.2, Neut # (Auto) 13.7 H, Lymph # (Auto) 0.7, [place] # (Auto) 0.4, Eos # (Auto) 0.2, Baso # (Auto) 0.0, Total Counted 100, Neutrophils % (Manual) 90 H, Band Neutrophils % 1.0, Lymphocytes % (Manual) 6 L, Monocytes % (Manual) 3, Platelet Estimate Slight increase, Anisocytosis 1+, Macrocytosis 1+ 12/11/21 14:45: Sodium 137, Potassium 5.1, Chloride 114 H, Carbon Dioxide 9 L*, Anion Gap 19.1 H, BUN 98 H, Creatinine 8.40 H, Estimated Creat Clear 6, Estimated GFR 6 L*, Est GFR ( Amer) 7 L*, Glucose 102 H, Calcium 7.4 L, Total Bilirubin 1.0, AST 17, ALT 22, Alkaline Phosphatase 161 H, Total Protein 6.2 L, Albumin 3.3 L, Globulin 2.9, Albumin/Globulin Ratio 1.1 12/11/21 14:45: Troponin I 0.08 H, Lipase 2264 H 12/11/21 15:42: SARS-CoV-2 (PCR) Not detected, Influenza A Untype (PCR) Not detected, Influenza Type B (PCR) Not detected 12/11/21 16:33: Lactate < 0.5 L 12/11/21 16:58: Specimen Source Right radial, O2 % 21, ABG pH 7.15 L*, ABG pCO2 17.6 L, ABG pO2 105.6 H, ABG HCO3 6.0 L, ABG Total CO2 6.6 L, ABG O2 Saturation 97, ABG Base Excess -22.7 L, Joshua Test Acceptable Result diagrams: 12/11/21 14:45 12/11/21 14:45 Orders (Tests/Meds): ED MEDICATIONS Generic Name Dose Route Start Last Admin Trade Name Freq PRN Reason Stop Dose Admin Ceftriaxone Sodium 2 gm/ 100 mls @ 200 mls/hr 12/11/21 16:15 12/11/21 16:47 Sodium Chloride IV 12/25/21 16:14 200 mls
[2021-12-11 15:02] LABS: Chloride 114 mmol/L (98-107); Potassium 5.1 mmoL/L (3.5-5.1); Sodium 137 mmol/L (136-145)
[2021-12-11 15:05] LABS: Alanine Aminotransferase 22 U/L (12-78); Albumin Level 3.3 g/dl (3.5-5.0); Albumin/Globulin Ratio 1.1 (1.1-1.8); Alkaline Phosphatase 161 U/L (38-126); Anion Gap 19.1 mEq/L (5-15); Aspartate Amino Transferase 17 U/L (17-59); Calcium 7.4 mg/dl (8.4-10.2); Creatinine Clearance Estimated 6 mL/min (50-200); Estimated Glomerular Filt Rate 6 ml/min (>60); GFR (African American) 7 ML/MIN (>60); Globulin 2.9 g/dL (1.3-3.2); Glucose 102 mg/dl (74-100); Total Protein,Serum 6.2 g/dl (6.3-8.2)
[2021-12-11 15:07] LABS: Basophils % 0.2 % (0.1-2.0); Eosinophils # 0.2 K/mm3 (0.0-0.4); Eosinophils % 1.3 % (0.1-12.0); Hematocrit 38.1 % (42.0-52.0); Hemoglobin 11.7 g/dL (14.1-18.0); Lymphocytes # 0.7 K/mm3 (0.7-4.5); Lymphocytes % 4.8 % (10-50); Mean Corpuscular HGB Conc 30.7 g/dL (31.8-35.4); Mean Corpuscular Hemoglobin 31.7 pg (27.0-31.2); Mean Platelet Volume 8.3 fl (7.4-10.4); Monocytes # 0.4 K/mm3 (0.1-1.0); Monocytes % 2.5 % (1.7-9.3); Neutrophils # 13.7 K/mm3 (1.8-7.8); Neutrophils % 91.2 % (37.0-80.0); Platelet Count 449 K/mm3 (142-424); Red Cell Distribution Width 17.9 % (11.5-17.5); White Blood Count 15.1 K/mm3 (4.8-10.8)
[2021-12-11 15:11] LABS: MANUAL DIFFERENTIAL MANUAL DIFFERENTIAL (MANUAL DIFF)
[2021-12-11 15:16] LABS: Troponin I 0.08 ng/ml (0.00-0.034)
--- NOTE | 2021-12-11 15:19 | XR_ITS ---
FINAL REPORT CLINICAL HISTORY: chest pain for a while per patient. COMPARISON: 02/19/2021 FINDINGS: SINGLE-VIEW CHEST There is mild cardiomegaly. The mediastinum is normal. There are chronic changes at the bases. There is an unfolded aorta. There is no pneumothorax. IMPRESSION: No acute cardiopulmonary process. Reviewed, Interpreted and Dictated by León Wu MD Transcribed by Andreia Simeon Authenticated by León Wu MD on 12/11/2021 04:11:[address] [facility]
[2021-12-11 15:27] LABS: Lipase 2264 U/L (23-300)
[2021-12-11 15:32] LABS: Carbon Dioxide 9 mmol/L (22.0-30.0)
[2021-12-11 15:33] LABS: Blood Urea Nitrogen 98 mg/dl (9-20)
--- NOTE | 2021-12-11 15:42 | ECG_ITS ---
APPROVED REPORT Exam: Resting ECG HR:71 bpm ECG Measurements Heart Rate 71 AXES SD 231 P 63 QRSd 92 QRS 43 QT 394 T 71 QTc 417 Conclusion SINUS RHYTHM WITH FIRST DEGREE AV BLOCK VOLTAGE CRITERIA FOR LVH [MEETS CRITERIA IN ONE OF: R(aVL), S(V1), R(V5), R(V5/V6)+S(V1)] POSSIBLE SEPTAL MYOCARDIAL INFARCTION , OF INDETERMINATE AGE [30 ms Q WAVE IN V1/V2] ABNORMAL ECG UNCONFIRMED REPORT Electronically signed by : Anup Maldonado MD 12/13/2021 17:43:57
--- NOTE | 2021-12-11 15:44 | CT_ITS ---
FINAL REPORT TECHNIQUE: Axial images through the abdomen and pelvis were performed without contrast. This study was performed with techniques to keep radiation doses as low as reasonably achievable, (ALARA). Individualized dose reduction techniques using automated exposure control or adjustment of mA and/or kV according to the patient's size were employed. CLINICAL HISTORY: abd pain, elev lipase FINDINGS: Abdomen: There is scarring in the lung bases. The liver parenchyma is homogeneous. The gallbladder is present. There is extensive peripancreatic inflammatory reaction particularly surrounding the pancreatic head consistent with acute pancreatitis. There is no fluid collection. There are surgical clips at the GE junction. The spleen, adrenals and kidneys are unremarkable. Pelvis: The urinary bladder is unremarkable. The appendix is not visualized. There is no pelvic mass or inflammation. There is moderate descending and sigmoid colon diverticulosis. There are advanced hypertrophic changes of degenerative disc disease in the lower lumbar spine. IMPRESSION: Acute uncomplicated pancreatitis. An infused CT could better display the abnormalities. Follow-up as indicated. Reviewed, Interpreted and Dictated by León Wu MD Transcribed by Alban Trevino Authenticated by León Wu MD on 12/11/2021 04:51:44 PM [facility]
[2021-12-11 15:49] LABS: Coronavirus 19, PCR Not Detected (NotDetected); Influenza A, PCR Not Detected (NotDetected); Influenza B, PCR Not Detected (NotDetected)
[2021-12-11 16:03] LABS: Anisocytosis 1+; Lymphocytes % 6 % (10-50); Macrocytosis 1+; Monocytes % 3 % (2-9); Neutrophils % 90 % (42-76); Platelet Estimate Slight Increase; Total Cells Counted 100
--- NOTE | 2021-12-11 16:11 | PC.NURSE ---
lab called for lactic and cultures to be drawn
[2021-12-11 17:07] LABS: Lactic Acid < 0.5 mmol/L (0.7-2.1)
--- NOTE | 2021-12-11 17:11 | US_ITS ---
PROCEDURE INFORMATION: Exam: US Abdomen, Limited; Right Upper Quadrant Exam date and time: 12/11/2021 5:19 PM Age: 81 years old Clinical indication: Abdominal pain; Epigastric; Additional info: Pancreatitis TECHNIQUE: Imaging protocol: US abdomen. Real time ultrasound with image documentation. Limited exam focused on the right upper quadrant. COMPARISON: CT ABDOMEN PELVIS WO CON 12/11/2021 3:51 PM FINDINGS: Liver: No hepatomegaly. Slightly coarse hepatic echotexture, no definite fatty change. No discrete mass as visualized. Hepatic veins: Patent hepatic veins with normal color flow. Gallbladder: Gallbladder is mildly distended. A few hazy internal echoes which could be slight sludge or technical artifact. A 2 mm nodule along the posterior gallbladder wall series 1, image 60, which could be tiny polyp. No mobile, shadowing gallstones were visualized. No significant gallbladder wall thickening. No pericholecystic fluid. Common bile duct: The common duct appears slightly dilated up to 7-8 mm on image 67, near the mendez hepatis. The distal duct was obscured by bowel gas. No intraluminal stones were imaged. Pancreas: Pancreas is incompletely imaged due to bowel gas. Visualized pancreas appears heterogeneous and overall hyperechoic, consistent with the clinical history of pancreatitis. No ductal dilatation in the visualized body of pancreas. Head and tail were partially obscured. Right kidney: Right kidney measured 10.9 x 4.5 x 4.3 cm. The upper pole cortex appears mildly thinned on several images, and hyperechoic, suggesting underlying medical renal disease, e.g. images 23-25. The kidney cortex appears relatively hyperechoic compared with liver parenchyma. However, cortical-medullary differentiation is preserved. Right renal pelvis is slightly prominent, in part due to extrarenal pelvis, but there is also slight calyceal distention. No echogenic shadowing stones or mass were imaged. Portal venous: Patent main portal vein with hepatopetal flow. IMPRESSION: 1. No cholelithiasis or findings of acute cholecystitis. Question 2 mm gallbladder polyp, possible minimal sludge. 2. The common duct is distended up to 7-8 mm, but this may be benign senile ductal ectasia in an 81-year-old, rather than obstruction, correlate with laboratory studies. No intraluminal stones, as visualized. No intrahepatic ductal dilatation. The distal duct was obscured by bowel gas. 3. The visualized body of pancreas appears slightly heterogeneous and hyperechoic, nonspecific findings, but consistent with the clinical history of pancreatitis. No ductal dilatation, cyst or well-defined mass as visualized, but much of the pancreas was obscured by bowel gas. 4. Likely mild right renal parenchymal disease, minimal right pyelocaliectasis, no discrete stones as visualized. 5. Additional nonemergency and chronic findings as above.
[2021-12-11 17:17] LABS: ABG Base Excess -22.7 mmol/L (-2.4-2.3); ABG Oxygen Saturation 97 % (90-100); ABG PO2 105.6 mmhg (80-100); ABG TCO2 6.6 mmhg (23-27)
[2021-12-11 17:18] LABS: Allen's Test Acceptable; Oxygen 21 %; Source Right Radial
[2021-12-11 17:21] LABS: ABG PCO2 17.6 mmhg (35.0-45.0); ABG PH 7.15 mmol/L (7.35-7.45)
--- NOTE | 2021-12-11 17:21 | PC.NURSE ---
Respiratory called results of ABG, for patient, repeated and given to
--- NOTE | 2021-12-11 17:30 | PC.NURSE ---
Dr Almanza talking to Hospitalist Dr Esteves about transfer of patient, needing dialyisis
[2021-12-11 18:39] LABS: Microscopic, Urine URINE MICROSCOPIC (MICROSCOPIC)
[2021-12-11 18:48] LABS: Appearance,Urine CLEAR (Clear); Bilirubin,Urine Negative (Negative); Blood, Urine 3+ (Negative); Color,Urine YELLOW (Yellow); Glucose,Urine (UA) Negative (Negative); Ketones,Urine Negative (Negative); Leukocyte Esterase,Urine 3+ (Negative); Nitrate,Urine Negative (Negative); Protein,Urine 2+ (Negative); Urobilinogen,Urine 0.2 EU/dl (0.2)
[2021-12-11 19:17] LABS: Bacteria,Urine Trace /lpf; RBC,Urine TNTC #/hpf (0-3); WBC,Urine TNTC #/hpf (0-3)
== END 2021-12-11 20:12 | disposition short-term general hospital (02) ==
PROVIDERS: Emergency Provider Emergency Medicine; PCP Family Medicine
DX: E87.2 Acidosis (principal); K85.90 Acute pancreatitis without necrosis or infection, unspecified; N17.9 Acute kidney failure, unspecified; I48.0 Paroxysmal atrial fibrillation; K21.9 Gastro-esophageal reflux disease without esophagitis; I10 Essential (primary) hypertension; N28.9 Disorder of kidney and ureter, unspecified; E78.5 Hyperlipidemia, unspecified
CPT/HCPCS: 36415; 71045; 74176; 76705; 80053; 81001; 82803; 83605; 83690; 84484; 85007; 85025; 87040; 87086; 87088; 87186; 93005; 96365; 96366; 96375; 99285; 99291; C9803; J0696; J2405; U0003; U0005

== ENCOUNTER → 2022-04-23 10:47 | Outpatient (CLI) | payer MEDICARE, SELFPAY ==
--- NOTE | 2022-04-23 10:54 | XR_ITS ---
FINAL REPORT CLINICAL HISTORY: RT SIDED SCIATICA PAIN FINDINGS: LUMBAR SPINE Multiple views were obtained. There is no acute fracture. There is lumbar scoliosis convex to the right measuring 10 degrees. There is moderate disc space narrowing of L2-3, L3-4, L4-5 and L5-S1. There is minimal spondylolisthesis of L4 on L5 that is probably degenerative. There is no soft tissue abnormality. IMPRESSION: Hypertrophic changes of degenerative disc disease of the lower lumbar spine. Reviewed, Interpreted and Dictated by León Wu MD Transcribed by Felicia Coe Authenticated and [facility]
== END ==
PROVIDERS: PCP Family Medicine; Visit Provider Family Medicine
DX: M54.31 Sciatica, right side (principal)
CPT/HCPCS: 72110

== ENCOUNTER 2023-01-13 21:47 | Emergency (ER) | payer MEDICARE, SELFPAY ==
[2023-01-13 21:48] VITALS: BP 184/110; PULSE 78; RESP 16; TEMP 36.7; O2SAT 98; BMI 21.2
--- NOTE | 2023-01-13 22:03 | XR_ITS ---
PROCEDURE INFORMATION: Exam: XR Chest Exam date and time: 01/13/2023 10:23 PM Age: 82 years old Clinical indication: Other: Vomiting, elevated BP; Patient HX: Has dialysis port in chest. TECHNIQUE: Imaging protocol: Radiologic exam of the chest. Views: 1 view. COMPARISON: CR XR CHEST PORTABLE 12/11/2021 3:28 PM FINDINGS: Tubes, catheters and devices: Dialysis catheter tip projected at atrial caval junction. Lungs: Clear lungs. Pleural spaces: Unremarkable. No pleural effusion. No pneumothorax. Heart/Mediastinum: Unremarkable. No cardiomegaly. Bones/joints: Unremarkable. IMPRESSION: No acute radiographic findings. Dialysis catheter grossly in place.
--- NOTE | 2023-01-13 22:04 | ECG_ITS ---
APPROVED REPORT Exam: Resting ECG HR:65 bpm ECG Measurements Heart Rate 65 AXES WA 227 P 69 QRSd 93 QRS 72 QT 500 T 91 QTc 511 Conclusion SINUS RHYTHM WITH FIRST DEGREE AV BLOCK SEPTAL MYOCARDIAL INFARCTION , OF INDETERMINATE AGE [40+ ms Q WAVE IN V1/V2] ABNORMAL ECG UNCONFIRMED REPORT Electronically signed by : Anup Maldonado MD 01/14/2023 20:10:53
[2023-01-13 22:25] LABS: Basophils % 0.7 % (0.1-2.0); Eosinophils # 0.2 K/mm3 (0.0-0.4); Eosinophils % 4.8 % (0.1-12.0); Hematocrit 39.2 % (42.0-52.0); Hemoglobin 12.7 g/dL (14.1-18.0); Lymphocytes # 0.8 K/mm3 (0.7-4.5); Lymphocytes % 17.7 % (10-50); Mean Corpuscular HGB Conc 32.4 g/dL (31.8-35.4); Mean Corpuscular Hemoglobin 33.5 pg (27.0-31.2); Mean Corpuscular Volume 103.2 fl (80-94); Mean Platelet Volume 7.7 fl (7.4-10.4); Monocytes # 0.4 K/mm3 (0.1-1.0); Monocytes % 8.7 % (1.7-9.3); Neutrophils # 3.1 K/mm3 (1.8-7.8); Neutrophils % 68.1 % (37.0-80.0); Platelet Count 209 K/mm3 (142-424); Red Cell Distribution Width 15.4 % (11.5-17.5); White Blood Count 4.6 K/mm3 (4.8-10.8)
[2023-01-13 22:31] LABS: Alanine Aminotransferase 28 U/L (12-78); Albumin/Globulin Ratio 1.7 (1.1-1.8); Alkaline Phosphatase 72 U/L (38-126); Anion Gap 16.2 mEq/L (5-15); Aspartate Amino Transferase 37 U/L (17-59); Bilirubin,Total 0.8 mg/dl (0.2-1.3); Blood Urea Nitrogen 20 mg/dl (9-20); Calcium 8.5 mg/dl (8.4-10.2); Carbon Dioxide 34 mmol/L (22.0-30.0); Chloride 93 mmol/L (98-107); Creatinine Clearance Estimated 13 mL/min (50-200); Estimated Glomerular Filt Rate 14 ml/min (>60); GFR (African American) 18 ML/MIN (>60); Globulin 2.4 g/dL (1.3-3.2); Glucose 73 mg/dl (74-100); Potassium 4.2 mmoL/L (3.5-5.1); Sodium 139 mmol/L (136-145); Total Protein,Serum 6.4 g/dl (6.3-8.2)
[2023-01-13 22:43] LABS: Troponin I 0.11 ng/ml (0.00-0.034)
[2023-01-13 22:58] VITALS: BP 172/98; PULSE 64; RESP 18; O2SAT 98
[2023-01-13 23:00] VITALS: BP 174/100
[2023-01-13 23:04] VITALS: BP 182/100
--- NOTE | 2023-01-13 23:06 | PC.NURSE ---
Rounded on patient. patient voiced no concerns or needs at this time.
--- NOTE | 2023-01-13 23:26 | HMH.EDNVD ---
Discharge Plan Disposition Patient Disposition: Home, Self-Care Prescriptions Prescriptions: No Action finasteride 5 MG tablet 5 mg PO DAILY tamsulosin 0.4 mg capsule 0.4 mg PO HS sevelamer carbonate 800 mg tablet 800 mg PO TID amiodarone 200 MG tablet 200 mg PO DAILY oxybutynin chloride 5 MG tablet 15 mg PO BID Referrals Follow up/Referrals: Joe Shaffer MD [Primary Care Provider] - See instructions Clinical Impressions Clinical Impression: Hypertension, Chronic renal failure syndrome, Elevated troponin Instructions Patient Instructions: Renovascular Hypertension Discharge ED Provider: Ambar (ED)Itz Nausea/Vomiting/Diarrhea HPI General Chief complaint: Nausea/Vomiting/Diarrhea Stated complaint: elevated bp, dizzy, right leg pain Time Seen by Provider: 01/13/23 23:26 Mode of Arrival: Wheelchair Source of Information: Patient and Medical Record Limitations: No Limitations Description of Symptoms (Recalled from ER Triage Doc. by RN): pt states today at dialysis BPwas elevated and md prescribed amlodpine 5mg hs. pt c/o elevated bp n/v and rt leg cramping History of Present Illness HPI Narrative: pt with episode of nausea and elevated bp and crampy leg pain on rt - pt is dialysis pt and had dialysis today MD complaint: nausea Onset (ago): hour(s) Associated Abdominal Pain: No Associated symptoms: denies other symptoms Related Data Home Medications Medication Instructions Recorded Confirmed finasteride 5 mg tablet 5 mg PO DAILY PROSTATE 11/14/20 01/13/23 amiodarone 200 mg tablet 200 mg PO DAILY heart rate 02/06/21 01/13/23 oxybutynin chloride 5 mg tablet 15 mg PO BID . 12/11/21 01/13/23 sevelamer carbonate 800 mg tablet 800 mg PO TID . 01/13/23 01/13/23 tamsulosin 0.4 mg capsule 0.4 mg PO HS prostate 01/13/23 01/13/23 Allergies Allergy/AdvReac Type Severity Reaction Status Date / Time No Known Allergies Allergy Verified 02/19/21 08:53 [facility] Disclaimer: The information contained in this section may have been updated after the patient was seen, as this information can be updated by other users. Medical History (Updated 01/14/23 @ 01:53 by Itz Villalta (ED)MD) 1st degree AV block Atrial fibrillation Dyspnea Social History Smoking Status: Never smoker alcohol intake: never substance use type: denies use current occupational status: retired Travel in the last 8 weeks: Inside the [place] household members: spouse housing: house current occupational exposures/hazards: No caffeine: Yes ROS Obtained: Yes All systems reviewed & no additional complaints except as documented Physical Exam General General appearance: alert Head Head exam: normocephalic Eye Eye exam: Present PERRL and EOMI ENT ENT exam: Present mucous membranes moist Neck Neck exam: Present trachea midline Respiratory Respiratory exam: Present normal lung sounds bilaterally; Absent respiratory distress Cardiovascular Cardiovascular exam: Present regular rate, systolic murmur and +S4 Abdominal Exam Abdominal exam: Present soft; Absent tenderness Extremities Exam Extremities exam: Present full ROM; Absent joint swelling or calf tenderness Neurological Exam Neurological exam: Present alert and CN II-XII intact; Absent motor sensory deficit Skin Skin exam: Absent rash Medical Decision Making Medical Records Medical records reviewed: Yes I reviewed the patient's medical records. Mati Inquiry Pt receiving controlled substance: No Vital Signs: 01/13/23 21:48 01/13/23 22:58 01/13/23 23:04 Temperature 98.0 F Temperature Source Oral Pulse Rate 64 Pulse Rate [Right] 78 Respiratory Rate 16 18 Blood Pressure 172/98 H 182/100 H Blood Pressure [Right Arm] 184/110 H Blood Pressure Mean 126 Blood Pressure Mean [Right Arm] 134 Blood Pressure Source Manual Cuff/ Auscultation 02 Sat by Pulse Oximetry 98 98 01/13/23
[2023-01-13 23:30] VITALS: BP 169/93
[2023-01-14 00:09] VITALS: BP 162/102; PULSE 59; O2SAT 96
[2023-01-14 00:30] VITALS: BP 170/98; PULSE 57; O2SAT 95
[2023-01-14 01:00] VITALS: BP 162/93; PULSE 65; RESP 18; O2SAT 97
[2023-01-14 01:40] VITALS: BP 155/95; PULSE 80; RESP 16; TEMP 36.7; O2SAT 98
== END 2023-01-14 02:10 | disposition home or self-care (01) ==
PROVIDERS: Emergency Provider Emergency Medicine; PCP Family Medicine
DX: R42 Dizziness and giddiness (principal); R11.0 Nausea; I12.9 Hypertensive chronic kidney disease with stage 1 through stage 4 chronic kidney disease, or unspecified chronic kidney disease; N18.9 Chronic kidney disease, unspecified; R77.8 Other specified abnormalities of plasma proteins
CPT/HCPCS: 71045; 80053; 84484; 85025; 93005; 96374; 99284; 99285; J2405

== ENCOUNTER 2023-02-04 13:32 | Outpatient (RCR) | payer MEDICARE, SELFPAY ==
--- NOTE | 2023-02-04 14:59 | HMH.PTOPEV ---
PT Outpatient Evaluation Rehab PT Outpatient Evaluation Start: 02/04/23 13:53 Freq: Status: Active Protocol: Document 02/04/23 14:27 PHOBI (Rec: 02/04/23 14:59 PHORNE [id number]) E-signed By Kenyon Luis, PT Outpatient Therapy Subjective History Subjective History This is the initial PT eval for Vijay Roque, 82 yowm who presents with c/o frequent falls due to poor balance. He reports most of his falls occur when he tries to move to fast, or gets up from seated position too fast. He reports no c/o pain or numbness/ tinging in his feet or legs. He reports ~3-4 falls over the past 6 mos. He has hx of HTN, 1st deg AV heart block, a-fib , CKD requiring dialysis. TUG= 18 sec. B LE hip flex MMT = 3/5 Chief Complaint Weakness,Decreased Coordination Symptoms Relieved By Rest/Positioning Symptoms Aggravated By Physical Activity,Walking Prior Functional Limitations None Current Functional Limitations Standing,Recreation Activity, Walking,Balance Symptom Description Activity Dependent Level of pain today (0-10) 0 Balance Eval Hx of Falls Hx Falls Yes Number in last 6 months 4 Gait/Posture Asssessment General Gait Observation Wide Based Gait Assistive Devices Straight Cane Level of Transfer Assist Independent Hip Observation in Gait Swing Abducted Timed Up and Go Test 1. Is the Timed Up and Go test result > yes or = to 12 seconds? 3. Is the Timed Up and Go Test result < no 12 seconds? [place] Feet Together/Eyes open/Stable Surface pass Feet Together/Eyes Closed/Stable Surface fail Feet Together/Eyes open/Unstable Surface fail Feet Together/Eyes Closed/Unstable fail Surface Tinetti Sitting Balance Sitting Balance Steady, safe Arising from Chair Ability to Arise Able, uses arms to help Attempts to Arise Arises on 1st attempt Standing Balance Immediate Standing Balance Unsteady Standing Balance Steady, wide stance Nudged Response Begins to fall Standing with Eyes Closed Unsteady Turning Step Pattern Turning 360 Degrees Discontinuous steps Stability Turning 360 Degrees Unsteady, grabs/staggers Sitting Down Sitting Down Uses
== END 2023-02-04 13:35 | disposition home or self-care (01) ==
LOC: PT 13:32
PROVIDERS: PCP Family Medicine; Visit Provider Family Medicine
DX: R42 Dizziness and giddiness (principal); R29.6 Repeated falls
CPT/HCPCS: 97110; 97163

== ENCOUNTER 2023-06-13 06:46 | Emergency (ER) | payer MEDICARE, SELFPAY ==
[2023-06-13 06:46] VITALS: BP 176/93; PULSE 64; RESP 16; TEMP 36.6; O2SAT 98; BMI 22.6
--- OUTSIDE RECORDS SUMMARY | 2023-06-13 06:53 | XMS_ITS ---
Author Name Makenzie Vasquez Address [address] [place] [address] Phone [phone] Organization [facility] e, NA DOCUMENT DISCLAIMER Multiple document versions may exist, please be sure you review the latest version. The information in the [facility] Progress Note Document represents a providers documented clinical note containing certain health and medical information. It may not contain the complete medical history for the patient and should be independently verified. The represented time in the document is Eastern Time PROVIDER ROUNDING NOTE BASIC Provider?Rounding?Note?Basic?-?Vijay?Mya?-?Chart?#: [id number] Patient?was?seen?on:?11/20/2022 Was?Patient?seen?today?:?11/20/2022 Method?of?Interaction:?Patient?not?seen Date?of?Interaction:?11/20/2022 Records?/?lab?review?only Reason:??patient?did?not?show?up?for?treatment Patient?is?stable Prior?Treatment:?11/18/2022? Dialyzer:?180NRe?Optiflux? Dialysate:?2.0?K,?2.5 Ca,?1.0?Mg,?100?Dextrose?(G2251)? Actual?Time:?03:25?Prescribed?Time:?3:15? Avg?BFR:?400?Avg?DFR:?800? Wt?Gain?(kg):?1.60?EDW?(kg):?67.00? post?Wt?(kg):? VITALS ?Date:?Temperature:?Pulse:?Respirations:?BP?(Sitting):?BP?(Standing):?Weight:? HOME?MEDICATIONS ?amiodarone?(amiodarone)??200?mg,?oral,?1?tablet?once a?day ?finasteride?(finasteride)??5?mg,?oral,?1?tablet?once a?day ?Flomax?(tamsulosin)??0.4?mg,?oral,?1?capsule?at?bedtime ?Florastor?(saccharomyces?boulardii)??250?mg,?oral,?1?capsule?twice?a?day ?Renvela?(sevelamer?carbonate)??800?mg,?oral,?2?tablet three?times?a?day ?Vitamin?D2?(ergocalciferol?(vitamin?d2))??1,250?mcg?(5 0,000?unit),?oral,?1?capsule?once?a?month Alerts Patient?has?been?frequently?missing?Friday?dialysis?treatments.? Makenzie?M?Pedro,?SENIOR DEVOPS ENGINEER END OF DOCUMENT
--- OUTSIDE RECORDS SUMMARY | 2023-06-13 06:53 | XMS_ITS ---
Author Name Makenzie Vasquez Address [address] [place] [address] Phone [phone] Organization [facility] e, NA DOCUMENT DISCLAIMER Multiple document versions may exist, please be sure you review the latest version. The information in the [facility] Progress Note Document represents a providers documented clinical note containing certain health and medical information. It may not contain the complete medical history for the patient and should be independently verified. The represented time in the document is Eastern Time PROVIDER ROUNDING NOTE BASIC Provider?Rounding?Note?Basic?-?Vijay?Mya?-?Chart?#: [id number] Patient?was?seen?on:?12/11/2022 Was?Patient?seen?today?:?12/11/2022 Method?of?Interaction:?Patient?not?seen Date?of?Interaction:?12/11/2022 Records?/?lab?review?only Reason:??patient?did?not?show?up?for?treatment Patient?is?stable ?-?Patient?issues?include:? Patient?issues?include: Stable Prior?Treatment:?12/09/2022? Dialyzer:?180NRe?Optiflux? Dialysate:?2.0?K,?2.5 Ca,?1.0?Mg,?100?Dextrose?(G2251)? Actual?Time:?03:26?Prescribed?Time:?3:15? Avg?BFR:?400?Avg?DFR:?800? Wt?Gain?(kg):?2.95?EDW?(kg):?67.00? post?Wt?(kg):? VITALS ?Date:?Temperature:?Pulse:?Respirations:?BP?(Sitting):?BP?(Standing):?Weight:? HOME?MEDICATIONS ?amiodarone?(amiodarone)??200?mg,?oral,?1?tablet?once a?day ?finasteride?(finasteride)??5?mg,?oral,?1?tablet?once a?day ?Flomax?(tamsulosin)??0.4?mg,?oral,?1?capsule?at?bedtime ?Florastor?(saccharomyces?boulardii)??250?mg,?oral,?1?capsule?twice?a?day ?Renvela?(sevelamer?carbonate)??800?mg,?oral,?2?tablet three?times?a?day ?Vitamin?D2?(ergocalciferol?(vitamin?d2))??1,250?mcg?(5 0,000?unit),?oral,?1?capsule?once?a?month Alerts Patient?has?been?frequently?missing?Friday?dialysis?treatments.? Makenzie?M?Pedro,?911 TELECOMMUNICATOR END OF DOCUMENT
--- OUTSIDE RECORDS SUMMARY | 2023-06-13 06:53 | XMS_ITS ---
Author Name Makenzie Vasquez Address [address] [place] [address] Phone [phone] Organization [facility] e, NA DOCUMENT DISCLAIMER The information in the [facility] Provider Note Document represents a providersdocumented clinical note containing certain health and medical information. It may not contain the complete medical history for the patient and should be independently verified. The represented time in the document is Eastern Time PROVIDER ROUNDING NOTE BASIC Provider?Rounding?Note?Basic?-?Vijay?Mya?-?Chart?#: [id number] Patient?was?seen?on:?09/18/2022 Was?Patient?seen?today?:?09/18/2022 Method?of?Interaction:?Patient?not?seen Date?of?Interaction:?09/18/2022 Records?/?lab?review?only Reason:??patient?did?not?show?up?for?treatment Patient?is?stable Patient?issues?include: Stable. Prior?Treatment:?09/16/2022? Dialyzer:?180NRe?Optiflux? Dialysate:?2.0?K,?2.5 Ca,?1.0?Mg,?100?Dextrose?(G2251)? Actual?Time:?03:17?Prescribed?Time:?3:15? Avg?BFR:?400?Avg?DFR:?800? Wt?Gain?(kg):?2.55?EDW?(kg):?67.00? post?Wt?(kg):? VITALS ?Date:?Temperature:?Pulse:?Respirations:?BP?(Sitting):?BP?(Standing):?Weight:? HOME?MEDICATIONS ?amiodarone?(amiodarone)??200?mg,?oral,?1?tablet?once a?day ?finasteride?(finasteride)??5?mg,?oral,?1?tablet?once a?day ?Flomax?(tamsulosin)??0.4?mg,?oral,?1?capsule?at?bedtime ?Florastor?(saccharomyces?boulardii)??250?mg,?oral,?1?capsule?twice?a?day ?Renvela?(sevelamer?carbonate)??800?mg,?oral,?2?tablet three?times?a?day ?Vitamin?D2?(ergocalciferol?(vitamin?d2))??1,250?mcg?(5 0,000?unit),?oral,?1?capsule?once?a?month Alerts Patient?has?been?frequently?missing?Friday?dialysis?treatments.? Makenzie?M?Pedro,?ECHOMETER ENGINEER END OF DOCUMENT
--- OUTSIDE RECORDS SUMMARY | 2023-06-13 06:53 | XMS_ITS ---
Author Name Claritza Cisneros Address [address] [place] [address] Phone [phone] Organization [facility] e, NA DOCUMENT DISCLAIMER Multiple document versions may exist, please be sure you review the latest version. The information in the [facility] Progress Note Document represents a providers documented clinical note containing certain health and medical information. It may not contain the complete medical history for the patient and should be independently verified. The represented time in the document is Eastern Time PROVIDER ROUNDING NOTE BASIC Patient:?Vijay?Mya,?1940,?82y,?M Dialysis?Location:?[facility]-?[place] Attending?Glass Furnace Operator:?Sarah?Bairon?Mallory Service?Date:?02/12/2023 Service?Provider:?Claritza?Blayne,?DIVERSIFIED CROPS II FARMWORKER I?met?face?to?face?with?the?patient?today. 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 Medications?and?labs?reviewed. DIALYSIS?PRESCRIPTION ??IHD?3x?Week?Start?date:?01/29/23 ??Dialyzer:?180NRe?Optiflux ??BFR:?400 ??DFR:?Autoflow?2 ??Potassium:?2.0 ??Sodium:?138 ??EDW:?66.5 ??Duration:?3:15 ??Calcium:?2.5 ??Bicarb:?40 ??Rx?updated?on:?01/28/2023 TREATMENT?ASSESSMENT BP?Stand?Pre ??02/10/2023:?141/78 ??02/07/2023:?135/74 ??02/03/2023:?137/74 BP?Sit?Pre ??02/10/2023:?156/89 ??02/07/2023:?149/81 ??02/03/2023:?146/84 BP?Stand?Post ??02/10/2023:?116/76 ??02/07/2023:?110/67 ??02/03/2023:?132/77 BP?Sit?Post ??02/10/2023:?112/68 ??02/07/2023:?124/64 ??02/03/2023:?152/86 Tx?Duration ??02/10/2023:?3:16 ??02/07/2023:?3:13 ??02/03/2023:?3:17 Missed?Treatments 4?-?last?30?days 8?-?last?60?days 6/7?-?recent FLUID?ASSESSMENT EDW?(kg) ??02/10/2023:?66.5 ??02/07/2023:?66.5 ??02/03/2023:?66.5 Weight?Pre?(kg) ??02/10/2023:?67.2 ??02/07/2023:?67.2 ??02/03/2023:?66.2 Weight?Post?(kg) ??02/10/2023:?65.8 ??02/07/2023:?66.2 ??02/03/2023:?65.7 PWV?(kg) ??02/10/2023:?-0.8 ??02/07/2023:?-0.3 ??02/03/2023:?-0.9 UF?Rate?(mL/kg/hr) ??02/10/2023:?6.5 ??02/07/2023:?4.7 ??02/03/2023:?2.6 ADEQUACY?ASSESSMENT spKt/V,?URR ??02/03/2023:?1.52,?74.0 ??12/30/2022:?1.57,?75.0 ??12/02/2022:?1.66,?75.0 ACCESS?ASSESSMENT ??Access?Type:?CVCatheter ??Access?SubType:?Tunneled ??Access?Status:?Active?(In?Use)?-?12/19/2021 ??Access?Location:?Chest ??Placed:?12/19/2021 ANEMIA?ASSESSMENT HGB ??02/10/2023:?11.2 ??02/03/2023:?11.3 ??05
--- OUTSIDE RECORDS SUMMARY | 2023-06-13 06:53 | XMS_ITS ---
Author Name Claritza Cisneros Address [address] [place] [address] Phone [phone] Organization [facility] e, NA DOCUMENT DISCLAIMER Multiple document versions may exist, please be sure you review the latest version. The information in the [facility] Progress Note Document represents a providers documented clinical note containing certain health and medical information. It may not contain the complete medical history for the patient and should be independently verified. The represented time in the document is Eastern Time PROVIDER ROUNDING NOTE BASIC Provider?Rounding?Note?Basic?-?Vijay?Mya?-?Chart?#: [id number] Method?of?Interaction:?Patient?not?seen Date?of?Interaction:?01/08/2023 Records?/?lab?review?only Reason:??patient?refuses?Friday?treatments Patient?is?stable Patient?issues?include: Stable Prior?Treatment:?01/20/2023? Dialyzer:?180NRe?Optiflux? Dialysate:?2.0?K,?2.5 Ca,?1.0?Mg,?100?Dextrose?(G2251)? Actual?Time:?03:17?Prescribed?Time:?3:15? Avg?BFR:?400?Avg?DFR:?800? Wt?Gain?(kg):?1.45?EDW?(kg):?67? post?Wt?(kg):? HOME?MEDICATIONS ?amiodarone?(amiodarone)??200?mg,?oral,?1?tablet?once a?day ?amlodipine?(amlodipine)??5?mg,?oral,?1?tablet?every night ?finasteride?(finasteride)??5?mg,?oral,?1?tablet?once a?day ?Flomax?(tamsulosin)??0.4?mg,?oral,?1?capsule?at?bedtime ?Florastor?(saccharomyces?boulardii)??250?mg,?oral,?1?capsule?twice?a?day ?Renvela?(sevelamer?carbonate)??800?mg,?oral,?2?tablet three?times?a?day ?Vitamin?D2?(ergocalciferol?(vitamin?d2))??1,250?mcg?(5 0,000?unit),?oral,?1?capsule?once?a?month Alerts Patient?has?been?frequently?missing?Friday?dialysis?treatments.? Claritza?L?Blayne,?TONGUE AND GROOVE MACHINE FEEDER END OF DOCUMENT
--- OUTSIDE RECORDS SUMMARY | 2023-06-13 06:53 | XMS_ITS ---
Author Name Makenzie Vasquez Address [address] [place] [address] Phone [phone] Organization [facility] e, NA DOCUMENT DISCLAIMER Multiple document versions may exist, please be sure you review the latest version. The information in the [facility] Progress Note Document represents a providers documented clinical note containing certain health and medical information. It may not contain the complete medical history for the patient and should be independently verified. The represented time in the document is Eastern Time PROVIDER ROUNDING NOTE BASIC Provider?Rounding?Note?Basic?-?Vijay?Mya?-?Chart?#: [id number] Patient?was?seen?on:?10/16/2022 Was?Patient?seen?today?:?10/16/2022 Method?of?Interaction:?Patient?not?seen Date?of?Interaction:?10/16/2022 Records?/?lab?review?only Reason:??patient?did?not?show?up?for?treatment Patient?is?stable Patient?issues?include: Stable. Prior?Treatment:?10/14/2022? Dialyzer:?180NRe?Optiflux? Dialysate:?2.0?K,?2.5 Ca,?1.0?Mg,?100?Dextrose?(G2251)? Actual?Time:?03:21?Prescribed?Time:?3:15? Avg?BFR:?400?Avg?DFR:?800? Wt?Gain?(kg):?2.10?EDW?(kg):?67.00? post?Wt?(kg):? VITALS ?Date:?Temperature:?Pulse:?Respirations:?BP?(Sitting):?BP?(Standing):?Weight:? HOME?MEDICATIONS ?amiodarone?(amiodarone)??200?mg,?oral,?1?tablet?once a?day ?finasteride?(finasteride)??5?mg,?oral,?1?tablet?once a?day ?Flomax?(tamsulosin)??0.4?mg,?oral,?1?capsule?at?bedtime ?Florastor?(saccharomyces?boulardii)??250?mg,?oral,?1?capsule?twice?a?day ?Renvela?(sevelamer?carbonate)??800?mg,?oral,?2?tablet three?times?a?day ?Vitamin?D2?(ergocalciferol?(vitamin?d2))??1,250?mcg?(5 0,000?unit),?oral,?1?capsule?once?a?month Alerts Patient?has?been?frequently?missing?Friday?dialysis?treatments.? Makenzie?M?Pedro,?RN DOCUMENT IMPROVEMENT END OF DOCUMENT
--- OUTSIDE RECORDS SUMMARY | 2023-06-13 06:53 | XMS_ITS ---
Author Name Claritza Cisneros Address [address] [place] [address] Phone [phone] Organization [facility] e, NA DOCUMENT DISCLAIMER Multiple document versions may exist, please be sure you review the latest version. The information in the [facility] Progress Note Document represents a providers documented clinical note containing certain health and medical information. It may not contain the complete medical history for the patient and should be independently verified. The represented time in the document is Eastern Time PROVIDER ROUNDING NOTE BASIC Patient:?Vijay?Mya,?1940,?82y,?M Dialysis?Location:?[facility]-?[place] Attending?Elementary Education Tutor:?Sarah?Bairon?Mallory Service?Date:?03/07/2023 Service?Provider:?Claritza?Blayne,?SENIOR TAX ACCOUNTANT I?met?face?to?face?with?the?patient?today. 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 Medications?and?labs?reviewed. DIALYSIS?PRESCRIPTION ??IHD?3x?Week?Start?date:?01/29/23 ??Dialyzer:?180NRe?Optiflux ??BFR:?400 ??DFR:?Autoflow?2 ??Potassium:?2.0 ??Sodium:?138 ??EDW:?66.5 ??Duration:?3:15 ??Calcium:?2.5 ??Bicarb:?40 ??Rx?updated?on:?01/28/2023 TREATMENT?ASSESSMENT BP?Stand?Pre ??03/03/2023:?146/78 ??02/28/2023:?143/76 ??02/24/2023:?127/68 BP?Sit?Pre ??03/03/2023:?128/75 ??02/28/2023:?140/76 ??02/24/2023:?132/76 BP?Stand?Post ??03/03/2023:?130/76 ??02/28/2023:?145/65 ??02/24/2023:?121/71 BP?Sit?Post ??03/03/2023:?130/71 ??02/28/2023:?137/80 ??02/24/2023:?150/89 Tx?Duration ??03/03/2023:?3:18 ??02/28/2023:?3:08 ??02/24/2023:?3:15 Missed?Treatments 5?-?last?30?days 9?-?last?60?days 7/5?-?recent FLUID?ASSESSMENT EDW?(kg) ??03/03/2023:?66.5 ??02/28/2023:?66.5 ??02/24/2023:?66.5 Weight?Pre?(kg) ??03/03/2023:?66.9 ??02/28/2023:?67.6 ??02/24/2023:?65.5 Weight?Post?(kg) ??03/03/2023:?65.0 ??02/28/2023:?65.0 ??02/24/2023:?64.5 PWV?(kg) ??03/03/2023:?-1.5 ??02/28/2023:?-1.5 ??02/24/2023:?-2.1 UF?Rate?(mL/kg/hr) ??03/03/2023:?8.6 ??02/28/2023:?12.8 ??02/24/2023:?5 ADEQUACY?ASSESSMENT spKt/V,?URR ??03/03/2023:?1.49,?72.0 ??02/03/2023:?1.52,?74.0 ??12/30/2022:?1.57,?75.0 ACCESS?ASSESSMENT ??Access?Type:?CVCatheter ??Access?SubType:?Tunneled ??Access?Status:?Active?(In?Use)?-?12/19/2021 ??Access?Location:?Chest ??Placed:?12/19/2021 Vascular?access?reviewed. ANEMIA?ASSESSMENT HGB,?TSAT ??
--- OUTSIDE RECORDS SUMMARY | 2023-06-13 06:53 | XMS_ITS ---
Author Name Makenzie Vasquez Address [address] [place] [address] Phone [phone] Organization [facility] e, NA DOCUMENT DISCLAIMER Multiple document versions may exist, please be sure you review the latest version. The information in the [facility] Progress Note Document represents a providers documented clinical note containing certain health and medical information. It may not contain the complete medical history for the patient and should be independently verified. The represented time in the document is Eastern Time PROVIDER ROUNDING NOTE BASIC Provider?Rounding?Note?Basic?-?Vijay?Mya?-?Chart?#: [id number] Patient?was?seen?on:?12/04/2022 Was?Patient?seen?today?:?12/04/2022 Method?of?Interaction:?Face?to?face Date?of?Interaction:?12/04/2022 Patient?is?stable ?-?Medications?and?labs?reviewed.? Patient?issues?include: Stable Prior?Treatment:?12/02/2022? Dialyzer:?180NRe?Optiflux? Dialysate:?2.0?K,?2.5 Ca,?1.0?Mg,?100?Dextrose?(G2251)? Actual?Time:?03:21?Prescribed?Time:?3:15? Avg?BFR:?400?Avg?DFR:?800? Wt?Gain?(kg):?2.40?EDW?(kg):?67.00? post?Wt?(kg):? RRR??CTAB??Trace?BLE??AVF?patent,?+?thrill VITALS ?Date:?Temperature:?Pulse:?Respirations:?BP?(Sitting):?BP?(Standing):?Weight:? HOME?MEDICATIONS ?amiodarone?(amiodarone)??200?mg,?oral,?1?tablet?once a?day ?finasteride?(finasteride)??5?mg,?oral,?1?tablet?once a?day ?Flomax?(tamsulosin)??0.4?mg,?oral,?1?capsule?at?bedtime ?Florastor?(saccharomyces?boulardii)??250?mg,?oral,?1?capsule?twice?a?day ?Renvela?(sevelamer?carbonate)??800?mg,?oral,?2?tablet three?times?a?day ?Vitamin?D2?(ergocalciferol?(vitamin?d2))??1,250?mcg?(5 0,000?unit),?oral,?1?capsule?once?a?month Alerts Patient?has?been?frequently?missing?Friday?dialysis?treatments.? Makenzie?M?Pedro,?I O PSYCHOLOGIST END OF DOCUMENT
--- OUTSIDE RECORDS SUMMARY | 2023-06-13 06:53 | XMS_ITS ---
Author Name Makenzie Vasquez Address [address] [place] [address] Phone [phone] Organization [facility] e, NA DOCUMENT DISCLAIMER Multiple document versions may exist, please be sure you review the latest version. The information in the [facility] Emergency Department Progress Note Document represents a providers documented clinical note containing certain health and medical information. It may not contain the complete medical history for the patient and should be independently verified. The represented time in the document is Eastern Time PROVIDER ROUNDING NOTE BASIC Provider?Rounding?Note?Basic?-?Vijay?Mya?-?Chart?#: [id number] Patient?was?seen?on:?10/09/2022 Was?Patient?seen?today?:?10/09/2022 Method?of?Interaction:?Patient?not?seen Date?of?Interaction:?10/09/2022 Records?/?lab?review?only Reason:??patient?did?not?show?up?for?treatment Patient?is?stable Patient?issues?include: Stable. Prior?Treatment:?10/07/2022? Dialyzer:?180NRe?Optiflux? Dialysate:?2.0?K,?2.5 Ca,?1.0?Mg,?100?Dextrose?(G2251)? Actual?Time:?03:21?Prescribed?Time:?3:15? Avg?BFR:?400?Avg?DFR:?790? Wt?Gain?(kg):?2.65?EDW?(kg):?67.00? post?Wt?(kg):? VITALS ?Date:?Temperature:?Pulse:?Respirations:?BP?(Sitting):?BP?(Standing):?Weight:? HOME?MEDICATIONS ?amiodarone?(amiodarone)??200?mg,?oral,?1?tablet?once a?day ?finasteride?(finasteride)??5?mg,?oral,?1?tablet?once a?day ?Flomax?(tamsulosin)??0.4?mg,?oral,?1?capsule?at?bedtime ?Florastor?(saccharomyces?boulardii)??250?mg,?oral,?1?capsule?twice?a?day ?Renvela?(sevelamer?carbonate)??800?mg,?oral,?2?tablet three?times?a?day ?Vitamin?D2?(ergocalciferol?(vitamin?d2))??1,250?mcg?(5 0,000?unit),?oral,?1?capsule?once?a?month Alerts Patient?has?been?frequently?missing?Friday?dialysis?treatments.? Makenzie?M?Pedro,?ASSISTANT MANAGER RETAIL END OF DOCUMENT
--- OUTSIDE RECORDS SUMMARY | 2023-06-13 06:53 | XMS_ITS ---
Author Name Claritza Cisneros Address [address] [place] [address] Phone [phone] Organization [facility] e, NA DOCUMENT DISCLAIMER Multiple document versions may exist, please be sure you review the latest version. The information in the [facility] Progress Note Document represents a providers documented clinical note containing certain health and medical information. It may not contain the complete medical history for the patient and should be independently verified. The represented time in the document is Eastern Time PROVIDER ROUNDING NOTE BASIC Provider?Rounding?Note?Basic?-?Vijay?Mya?-?Chart?#: [id number] Method?of?Interaction:?Patient?not?seen Date?of?Interaction:?01/15/2023 Records?/?lab?review?only Reason:??patient?refuses?Friday?treatments Patient?is?stable Patient?issues?include: Stable Prior?Treatment:?01/20/2023? Dialyzer:?180NRe?Optiflux? Dialysate:?2.0?K,?2.5 Ca,?1.0?Mg,?100?Dextrose?(G2251)? Actual?Time:?03:17?Prescribed?Time:?3:15? Avg?BFR:?400?Avg?DFR:?800? Wt?Gain?(kg):?1.45?EDW?(kg):?67? post?Wt?(kg):? HOME?MEDICATIONS ?amiodarone?(amiodarone)??200?mg,?oral,?1?tablet?once a?day ?amlodipine?(amlodipine)??5?mg,?oral,?1?tablet?every night ?finasteride?(finasteride)??5?mg,?oral,?1?tablet?once a?day ?Flomax?(tamsulosin)??0.4?mg,?oral,?1?capsule?at?bedtime ?Florastor?(saccharomyces?boulardii)??250?mg,?oral,?1?capsule?twice?a?day ?Renvela?(sevelamer?carbonate)??800?mg,?oral,?2?tablet three?times?a?day ?Vitamin?D2?(ergocalciferol?(vitamin?d2))??1,250?mcg?(5 0,000?unit),?oral,?1?capsule?once?a?month Alerts Patient?has?been?frequently?missing?Friday?dialysis?treatments.? Claritza?L?Blayne,?STAMPING DIE MAKER END OF DOCUMENT
--- OUTSIDE RECORDS SUMMARY | 2023-06-13 06:53 | XMS_ITS ---
Author Name Makenzie Vasquez Address [address] [place] [address] Phone [phone] Organization [facility] e, NA DOCUMENT DISCLAIMER Multiple document versions may exist, please be sure you review the latest version. The information in the [facility] Progress Note Document represents a providers documented clinical note containing certain health and medical information. It may not contain the complete medical history for the patient and should be independently verified. The represented time in the document is Eastern Time PROVIDER ROUNDING NOTE BASIC Provider?Rounding?Note?Basic?-?Vijay?Mya?-?Chart?#: [id number] Patient?was?seen?on:?10/30/2022 Was?Patient?seen?today?:?10/30/2022 Method?of?Interaction:?Patient?not?seen Date?of?Interaction:?10/30/2022 Records?/?lab?review?only Reason:??patient?did?not?show?up?for?treatment Patient?is?stable Patient?issues?include: Stable. Prior?Treatment:?10/28/2022? Dialyzer:?180NRe?Optiflux? Dialysate:?2.0?K,?2.5 Ca,?1.0?Mg,?100?Dextrose?(G2251)? Actual?Time:?03:17?Prescribed?Time:?3:15? Avg?BFR:?400?Avg?DFR:?800? Wt?Gain?(kg):?2.55?EDW?(kg):?67.00? post?Wt?(kg):? VITALS ?Date:?Temperature:?Pulse:?Respirations:?BP?(Sitting):?BP?(Standing):?Weight:? HOME?MEDICATIONS ?amiodarone?(amiodarone)??200?mg,?oral,?1?tablet?once a?day ?finasteride?(finasteride)??5?mg,?oral,?1?tablet?once a?day ?Flomax?(tamsulosin)??0.4?mg,?oral,?1?capsule?at?bedtime ?Florastor?(saccharomyces?boulardii)??250?mg,?oral,?1?capsule?twice?a?day ?Renvela?(sevelamer?carbonate)??800?mg,?oral,?2?tablet three?times?a?day ?Vitamin?D2?(ergocalciferol?(vitamin?d2))??1,250?mcg?(5 0,000?unit),?oral,?1?capsule?once?a?month Alerts Patient?has?been?frequently?missing?Friday?dialysis?treatments.? Makenzie?M?Pedro,?BULB ASSEMBLER END OF DOCUMENT
--- OUTSIDE RECORDS SUMMARY | 2023-06-13 06:53 | XMS_ITS ---
Author Name Claritza Cisneros Address [address] [place] [address] Phone [phone] Organization [facility] e, NA DOCUMENT DISCLAIMER Multiple document versions may exist, please be sure you review the latest version. The information in the [facility] Progress Note Document represents a providers documented clinical note containing certain health and medical information. It may not contain the complete medical history for the patient and should be independently verified. The represented time in the document is Eastern Time PROVIDER ROUNDING NOTE BASIC Patient:?Vijay?Mya,?1940,?82y,?M Dialysis?Location:?[facility]??-?[facility] Attending?Water Valve Mechanic:?Sarah?Bairon?Mallory Service?Date:?03/12/2023 Service?Provider:?Claritza?Blayne,?VULCANIZING MACHINE OPERATOR I?met?face?to?face?with?the?patient?today. 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 Medications?and?labs?reviewed. DIALYSIS?PRESCRIPTION ??IHD?3x?Week?Start?date:?03/12/23 ??Dialyzer:?180NRe?Optiflux ??BFR:?400 ??DFR:?Autoflow?2 ??Potassium:?2.0 ??Sodium:?138 ??EDW:?65.5 ??Duration:?3:15 ??Calcium:?2.5 ??Bicarb:?40 ??Rx?updated?on:?03/11/2023 TREATMENT?ASSESSMENT BP?Stand?Pre ??03/10/2023:?137/74 ??03/07/2023:?151/85 ??03/03/2023:?146/78 BP?Sit?Pre ??03/10/2023:?142/80 ??03/07/2023:?162/84 ??03/03/2023:?128/75 BP?Stand?Post ??03/10/2023:?122/66 ??03/07/2023:?146/81 ??03/03/2023:?130/76 BP?Sit?Post ??03/10/2023:?135/81 ??03/07/2023:?148/82 ??03/03/2023:?130/71 Tx?Duration ??03/10/2023:?3:16 ??03/07/2023:?3:14 ??03/03/2023:?3:18 Missed?Treatments 4?-?last?30?days 8?-?last?60?days 7/5?-?recent FLUID?ASSESSMENT EDW?(kg) ??03/10/2023:?66.5 ??03/07/2023:?66.5 ??03/03/2023:?66.5 Weight?Pre?(kg) ??03/10/2023:?67.6 ??03/07/2023:?66.7 ??03/03/2023:?66.9 Weight?Post?(kg) ??03/10/2023:?66.2 ??03/07/2023:?66.2 ??03/03/2023:?65.0 PWV?(kg) ??03/10/2023:?-0.4 ??03/07/2023:?-0.4 ??03/03/2023:?-1.5 UF?Rate?(mL/kg/hr) ??03/10/2023:?6.5 ??03/07/2023:?2.6 ??03/03/2023:?8.6 ADEQUACY?ASSESSMENT spKt/V,?URR ??03/03/2023:?1.49,?72.0 ??02/03/2023:?1.52,?74.0 ??12/30/2022:?1.57,?75.0 ACCESS?ASSESSMENT ??Access?Type:?CVCatheter ??Access?SubType:?Tunneled ??Access?Status:?Active?(In?Use)?-?12/19/2021 ??Access?Location:?Chest ??Placed:?12/19/2021 ANEMIA?ASSESSMENT HGB,?TSAT ??03/10/2023:?11.3,?- ??03/03/2023:?10.
--- OUTSIDE RECORDS SUMMARY | 2023-06-13 06:53 | XMS_ITS ---
Author Name Makenzie Vasquez Address [address] [place] [address] Phone [phone] Organization [facility] e, NA DOCUMENT DISCLAIMER Multiple document versions may exist, please be sure you review the latest version. The information in the [facility] Emergency Department Progress Note Document represents a providers documented clinical note containing certain health and medical information. It may not contain the complete medical history for the patient and should be independently verified. The represented time in the document is Eastern Time PROVIDER ROUNDING NOTE BASIC Provider?Rounding?Note?Basic?-?Vijay?Mya?-?Chart?#: [id number] Patient?was?seen?on:?01/01/2023 Was?Patient?seen?today?:?01/01/2023 Method?of?Interaction:?Patient?not?seen Date?of?Interaction:?01/01/2023 Records?/?lab?review?only Reason:??patient?did?not?show?up?for?treatment Patient?is?stable Patient?issues?include: Stable Prior?Treatment:?12/30/2022? Dialyzer:?180NRe?Optiflux? Dialysate:?2.0?K,?2.5 Ca,?1.0?Mg,?100?Dextrose?(G2251)? Actual?Time:?03:20?Prescribed?Time:?3:15? Avg?BFR:?370?Avg?DFR:?740? Wt?Gain?(kg):?0.35?EDW?(kg):?67.00? post?Wt?(kg):? VITALS ?Date:?Temperature:?Pulse:?Respirations:?BP?(Sitting):?BP?(Standing):?Weight:? HOME?MEDICATIONS ?amiodarone?(amiodarone)??200?mg,?oral,?1?tablet?once a?day ?finasteride?(finasteride)??5?mg,?oral,?1?tablet?once a?day ?Flomax?(tamsulosin)??0.4?mg,?oral,?1?capsule?at?bedtime ?Florastor?(saccharomyces?boulardii)??250?mg,?oral,?1?capsule?twice?a?day ?Renvela?(sevelamer?carbonate)??800?mg,?oral,?2?tablet three?times?a?day ?Vitamin?D2?(ergocalciferol?(vitamin?d2))??1,250?mcg?(5 0,000?unit),?oral,?1?capsule?once?a?month Alerts Patient?has?been?frequently?missing?Friday?dialysis?treatments.? Makenzie?M?Pedro,?SOFTWARE RECRUITER END OF DOCUMENT
--- OUTSIDE RECORDS SUMMARY | 2023-06-13 06:54 | XMS_ITS ---
Author Name Sarah Florence Address [address] [place] [address] Phone [phone] Organization [facility] e, NA DOCUMENT DISCLAIMER The information in the [facility] Provider Note Document represents a providersdocumented clinical note containing certain health and medical information. It may not contain the complete medical history for the patient and should be independently verified. The represented time in the document is Eastern Time PROVIDER ROUNDING NOTE COMP Provider?Rounding?Note?Comp?-?Vijay?Mya?-?Chart?#: [id number] Patient?was?seen?on:?09/25/2022 Was?Patient?seen?today?:?09/25/2022 Method?of?Interaction:?Face?to?face Date?of?Interaction:?09/25/2022 Patient?is?stable ?-?Optimal?weight?addressed?with?patient?and?staff.? ?-?Medications?and?labs?reviewed.? Patient?issues?include: stable. Prior?Treatment:?09/20/2022? Dialyzer:?180NRe?Optiflux? Dialysate:?2.0?K,?2.5 Ca,?1.0?Mg,?100?Dextrose?(G2251)? Actual?Time:?03:17?Prescribed?Time:?3:15? Avg?BFR:?400?Avg?DFR:?800? Wt?Gain?(kg):?2.50?EDW?(kg):?67? post?Wt?(kg):? VITALS ?Date:?Temperature:?Pulse:?Respirations:?BP?(Sitting):?BP?(Standing):?Weight:? Volume?Management?Comments ADEQUACY ?spKt/V?eKdrt/V?OLC?(Del)?spKtv?1.92?09/02/22 ???1.59 ?09/02/22 ???1.74?09/20/22 ???1.78?12/05/22 ???1.47 ?08/05/22 ???1.85?09/16/22 ???1.73?07/08/22 ???1.44 ?07/08/22 ???1.84?09/13/22 ?URR?Potassium,?Serum?&#160 ;?Bicarbonate?Creatinine?%?mEq/L?mEq/L?&#16 0;?mg/dL ?80?09/02/22 ?? 5.1?09/16/22 ???24?09/16/22 ???6.17?&#1
--- OUTSIDE RECORDS SUMMARY | 2023-06-13 06:54 | XMS_ITS ---
Author Name Claritza Cisneros Address [address] [place] [address] Phone [phone] Organization [facility] e, NA DOCUMENT DISCLAIMER Multiple document versions may exist, please be sure you review the latest version. The information in the [facility] Progress Note Document represents a providers documented clinical note containing certain health and medical information. It may not contain the complete medical history for the patient and should be independently verified. The represented time in the document is Eastern Time PROVIDER ROUNDING NOTE BASIC Patient:?Vijay?Mya,?1940,?82y,?M Dialysis?Location:?[facility]??-?[place] Attending?Sewer And Drain Technician:?Sarah?Bairon?Mallory Service?Date:?03/14/2023 Service?Provider:?Claritza?Blayne,?PRESS TENDER I?met?face?to?face?with?the?patient?today. 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 Medications?and?labs?reviewed. DIALYSIS?PRESCRIPTION ??IHD?3x?Week?Start?date:?03/12/23 ??Dialyzer:?180NRe?Optiflux ??BFR:?400 ??DFR:?Autoflow?2 ??Potassium:?2.0 ??Sodium:?138 ??EDW:?65.5 ??Duration:?3:15 ??Calcium:?2.5 ??Bicarb:?40 ??Rx?updated?on:?03/11/2023 TREATMENT?ASSESSMENT Blood?pressure?controlled.?No?changes?indicated.? BP?Stand?Pre ??03/10/2023:?137/74 ??03/07/2023:?151/85 ??03/03/2023:?146/78 BP?Sit?Pre ??03/10/2023:?142/80 ??03/07/2023:?162/84 ??03/03/2023:?128/75 BP?Stand?Post ??03/10/2023:?122/66 ??03/07/2023:?146/81 ??03/03/2023:?130/76 BP?Sit?Post ??03/10/2023:?135/81 ??03/07/2023:?148/82 ??03/03/2023:?130/71 Tx?Duration ??03/10/2023:?3:16 ??03/07/2023:?3:14 ??03/03/2023:?3:18 Missed?Treatments 4?-?last?30?days 8?-?last?60?days 7/5?-?recent FLUID?ASSESSMENT Fluid?status?acceptable.?Interdialytic?weight?gain?acceptable.?No ?changes?indicated.? EDW?(kg) ??03/10/2023:?66.5 ??03/07/2023:?66.5 ??03/03/2023:?66.5 Weight?Pre?(kg) ??03/10/2023:?67.6 ??03/07/2023:?66.7 ??03/03/2023:?66.9 Weight?Post?(kg) ??03/10/2023:?66.2 ??03/07/2023:?66.2 ??03/03/2023:?65.0 PWV?(kg) ??03/10/2023:?-0.4 ??03/07/2023:?-0.4 ??03/03/2023:?-1.5 UF?Rate?(mL/kg/hr) ??03/10/2023:?6.5 ??03/07/2023:?2.6 ??03/03/2023:?8.6 ADEQUACY?ASSESSMENT Adequacy?target?met.?Prescription?compliance?acceptable.?No?changes?indicated.? spKt/V,?URR ??03/03/2023:?1.49,?72.0 ??02/03/2023:?1.52,?74.0 ??12/30/2022:?1.57,?75.0 ACCESS?ASSESSMENT ??Acc
--- NOTE | 2023-06-13 06:55 | CT_ITS ---
FINAL REPORT CLINICAL HISTORY: fall on blood thinners, small lac on the back of the patients head FINDINGS: Axial images of the head were obtained without contrast. Coronal reformatted images were also obtained. This study was performed with techniques to keep radiation doses as low as reasonably achievable (ALARA). Individualized dose reduction techniques using automated exposure control or adjustment of mA and/or kV according to the patient's size were employed. There is generalized age-appropriate atrophy. Periventricular low-attenuation areas are seen consistent with mild chronic ischemic changes. There is no evidence of intracranial hemorrhage or mass. There is no evidence of acute infarct. There is no evidence of shift of the midline structures. There is opacification of multiple mastoid air cells. There is deformity of the right nasal bone, favor chronic fracture. There is left parietal scalp soft tissue swelling. IMPRESSION: Atrophy and mild periventricular chronic ischemic changes. No acute intracranial abnormality identified. Opacification of mastoid air cells. Left scalp soft tissue swelling. Reviewed, Interpreted and Dictated by Ethan Yadav III, MD Transcribed by Andreia Simeon Authenticated and [facility]
--- NOTE | 2023-06-13 06:55 | CT_ITS ---
FINAL REPORT TECHNIQUE: Axial images were obtained of the cervical spine by computed tomography. Coronal and sagittal reconstruction process performed. This study was performed with techniques to keep radiation doses as low as reasonably achievable (ALARA). Individualized dose reduction techniques using automated exposure control or adjustment of mA and/or kV according to the patient''s size were employed. CLINICAL HISTORY: fall on blood thinners FINDINGS: There is no acute fracture. There are moderate degenerative changes. There is mild anterolisthesis of C4 on 5. Multilevel neural foraminal narrowing is identified. IMPRESSION: No acute fracture. Degenerative disc disease as above. Reviewed, Interpreted and Dictated by Ethan Yadav III, MD Transcribed by Andreia Simeon Authenticated and . [facility]
--- NOTE | 2023-06-13 06:58 | PC.NURSE ---
states patient has cataracts on both eyes, recent fall that might have shifted lens; his dentures are new and too big for his mouth, and his bilat hearing is 1/50 and 4/50 words hearing.
--- NOTE | 2023-06-13 07:10 | XR_ITS ---
FINAL REPORT CLINICAL HISTORY: fall, injury FINDINGS: Right forearm Two views were obtained. There is no acute fracture or dislocation. There are moderate degenerative changes of the wrist. There is chronic deformity of the distal radius and ulna, may represent chronic fractures. Mild vascular calcification is identified. IMPRESSION: No acute process. Reviewed, Interpreted and Dictated by Ethan Yadav III, MD Transcribed by Anrdeia Simeon Authenticated and [facility]
--- NOTE | 2023-06-13 07:10 | HMH.EDGENADL ---
Discharge Plan Disposition Patient Disposition: Home, Self-Care Chief Complaint: Fall Prescriptions Prescriptions: No Action fluticasone propionate [Flonase Allergy Relief] 50 mcg/actuation spray,suspension 2 spray intranasal DAILY Qty: 16 2RF Rx Instructions: administer into each nostril levocetirizine [Xyzal] 5 mg tablet 5 mg PO DAILY Qty: 30 2RF finasteride 5 MG tablet 5 mg PO DAILY tamsulosin 0.4 mg capsule 0.4 mg PO HS sevelamer carbonate 800 mg tablet 800 mg PO TID amiodarone 200 MG tablet 200 mg PO DAILY oxybutynin chloride 5 MG tablet 15 mg PO BID Referrals Follow up/Referrals: Joe Shaffer MD [Primary Care Provider] - See instructions Clinical Impressions Clinical Impression: Minor head injury, Abrasion of scalp, Hematoma of left parietal scalp, Traumatic ecchymosis of forearm Discharge ED Provider: Eric Tijerina General Adult HPI General Chief complaint: Fall Stated complaint: fall Time Seen by Provider: 06/13/23 07:02 Mode of Arrival: Ambulatory Limitations: No Limitations Description of Symptoms (Recalled from ER Triage Doc. by RN): Pt reports fall at 0230 this morning. Pt states his foot got caught in blanket, and he fell back hitting his head on table. Pt and pts deny pt losing consciousness. Pt went to dialysis this morning after fall and nurse suggested pt went to ER r/t lac on pts head and sluggish L pupil response. Pt presents to ED with small laceration to left side of head, Pt A&OX4, follows commmands, pupils difficult to assess r/t cataracts. History of Present Illness HPI narrative: Patient is an 83-year-old male here with a head injury. States he woke up this morning at around 230 was getting ready to go to dialysis where he had a mechanical fall due to getting tripped up on a blanket fell and hit his head on the back of the table as well as on the floor. No loss of consciousness no nausea vomiting no change in mental status no neurologic symptoms she has been at his baseline since the injury. Went to dialysis and they sent him to the emergency department. Patient does believe that he is on anticoagulation but is not sure exactly what medications he takes. Related Data Home Medications Medication Instructions Recorded Confirmed finasteride 5 mg tablet 5 mg PO DAILY PROSTATE 11/14/20 06/13/23 amiodarone 200 mg tablet 200 mg PO DAILY heart rate 02/06/21 06/13/23 oxybutynin chloride 5 mg tablet 15 mg PO BID . 12/11/21 06/13/23 sevelamer carbonate 800 mg tablet 800 mg PO TID . 01/13/23 06/13/23 tamsulosin 0.4 mg capsule 0.4 mg PO HS prostate 01/13/23 06/13/23 Previous Rx's Medication Instructions Recorded fluticasone propionate 50 2 spray intranasal DAILY #16 grams 05/28/23 mcg/actuation nasal spray,suspension (Flonase Allergy Relief) levocetirizine 5 mg tablet (Xyzal) 5 mg PO DAILY #30 tabs 05/28/23 Allergies Allergy/AdvReac Type Severity Reaction Status Date / Time No Known Allergies Allergy Verified 05/28/23 13:14 [facility] Disclaimer: The information contained in this section may have been updated after the patient was seen, as this information can be updated by other users. Medical History (Updated 06/13/23 @ 07:14 by Sophie Núñez MD) 1st degree AV block Atrial fibrillation Bilateral hearing loss Dyspnea Poor balance Social History Smoking Status: Never smoker alcohol intake: never substance use type: denies use current occupational status: retired Travel in the last 8 weeks: Inside the [place] household members: spouse housing: house current occupational exposures/hazards: No caffeine: Yes ROS Obtained: Yes All systems reviewed & no additional complaints except as documented Physical Exam General General appearance: alert and in no apparent distress Head Head exam: other (Prior to occipital small he
--- NOTE | 2023-06-13 07:18 | PC.NURSE ---
Pt gone to RAD via wheelchair
[2023-06-13 08:28] VITALS: BP 177/107; PULSE 78; RESP 18; TEMP 36.7; O2SAT 98
== END 2023-06-13 08:29 | disposition home or self-care (01) ==
PROVIDERS: Emergency Provider Emergency Medicine; PCP Family Medicine
DX: S09.8XXA Other specified injuries of head, initial encounter (principal); S00.03XA Contusion of scalp, initial encounter; S00.01XA Abrasion of scalp, initial encounter; S50.11XA Contusion of right forearm, initial encounter; N18.6 End stage renal disease; Z99.2 Dependence on renal dialysis; W19.XXXA Unspecified fall, initial encounter
CPT/HCPCS: 70450; 72125; 73090; 99284

== ENCOUNTER → 2023-06-18 15:13 | Outpatient (CLI) | payer MEDICARE, SELFPAY ==
--- NOTE | 2023-06-18 15:19 | ECG_ITS ---
APPROVED REPORT Exam: Resting ECG HR:57 bpm ECG Measurements Heart Rate 57 AXES NV 226 P 46 QRSd 91 QRS 84 QT 469 T 16 QTc 463 Conclusion SINUS BRADYCARDIA WITH FIRST DEGREE AV BLOCK PROLONGED QT INTERVAL ABNORMAL ECG UNCONFIRMED REPORT Electronically signed by : Anup Maldonado MD 06/19/2023 10:09:25
[2023-06-18 16:32] LABS: Alanine Aminotransferase 39 U/L (12-78); Albumin Level 4.2 g/dl (3.5-5.0); Albumin/Globulin Ratio 1.6 (1.1-1.8); Alkaline Phosphatase 71 U/L (38-126); Anion Gap 15.7 mEq/L (5-15); Aspartate Amino Transferase 48 U/L (17-59); Bilirubin,Total 0.5 mg/dl (0.2-1.3); Blood Urea Nitrogen 31 mg/dl (9-20); Calcium 8.8 mg/dl (8.4-10.2); Carbon Dioxide 30 mmol/L (22.0-30.0); Chloride 95 mmol/L (98-107); Estimated Glomerular Filt Rate 10 ml/min (>60); GFR (African American) 13 ML/MIN (>60); Globulin 2.7 g/dL (1.3-3.2); Glucose 98 mg/dl (74-100); Potassium 4.7 mmoL/L (3.5-5.1); Sodium 136 mmol/L (136-145); Total Protein,Serum 6.9 g/dl (6.3-8.2)
[2023-06-18 16:45] LABS: Basophils # 0.1 K/mm3 (0-0.2); Basophils % 0.6 % (0.1-2.0); Eosinophils # 0.2 K/mm3 (0.0-0.4); Eosinophils % 2.9 % (0.1-12.0); Hematocrit 33.3 % (42.0-52.0); Hemoglobin 11.4 g/dL (14.1-18.0); Lymphocytes # 1.3 K/mm3 (0.7-4.5); Lymphocytes % 16.3 % (10-50); Mean Corpuscular HGB Conc 34.4 g/dL (31.8-35.4); Mean Corpuscular Hemoglobin 35.6 pg (27.0-31.2); Mean Corpuscular Volume 103.6 fl (80-94); Mean Platelet Volume 7.8 fl (7.4-10.4); Monocytes # 0.4 K/mm3 (0.1-1.0); Monocytes % 5.1 % (1.7-9.3); Neutrophils # 5.7 K/mm3 (1.8-7.8); Neutrophils % 75.1 % (37.0-80.0); Platelet Count 218 K/mm3 (142-424); Red Blood Count 3.21 M/mm3 (4.60-6.20); Red Cell Distribution Width 15.2 % (11.5-17.5); White Blood Count 7.6 K/mm3 (4.8-10.8)
== END ==
PROVIDERS: PCP Family Medicine; Visit Provider Nurse Practitioner
DX: H65.93 Unspecified nonsuppurative otitis media, bilateral (principal); Z01.818 Encounter for other preprocedural examination
CPT/HCPCS: 36415; 80053; 85025; 93005

== ENCOUNTER 2023-06-25 10:03 | Day surgery (SDC) | payer MEDICARE, SELFPAY ==
[2023-06-23 13:26] VITALS: BMI 22.9
[2023-06-25 10:47] VITALS: BP 166/87; PULSE 67; RESP 16; TEMP 36.7; O2SAT 97
--- NOTE | 2023-06-25 12:58 | P.OP_ITS ---
Date of procedure: 06/25/23 Pre-op Diagnosis:: Chronic serous otitis media Post-op Diagnosis:: Chronic serous otitis media Procedure performed:: Bilateral tympanostomy and tube placement Surgeon:: Yevgeniy Truong MD AUTOMOBILE SERVICE ADVISOR:: Brandno Vo Anesthesia: MAC Estimated blood loss (mL): 0 Operative findings:: Mucoid middle ear effusion bilaterally Operative note:: The patient was brought to the operating room and after adequate IV sedation the tympanic membranes were visualized using the operating microscope. Tympanostomy was made in the anterior-inferior quadrant and suction employed to clear the middle ear space of effusion. This was done bilaterally. Router bobbin tubes were then placed and Ciprodex drops applied and the procedure concluded. All counts correct and blood loss was 0 and patient was sent to recovery in stable condition. Condition: stable Disposition: PACU Complications:: No complications
[2023-06-25 13:05] VITALS: BP 109/64; PULSE 64; RESP 15; TEMP 36.1; O2SAT 94
--- NOTE | 2023-06-25 13:16 | P.PNANES_ITS ---
[facility] Disclaimer: The information contained in this section may have been updated after the patient was seen, as this information can be updated by other users. Medical History 1st degree AV block Atrial fibrillation Bilateral hearing loss Bilateral serous otitis media Dyspnea Poor balance Surgical History History of back surgery History of prostate surgery Family History Other No significant family history Social History (Updated 06/25/23 @ 11:05 by Sanna Wheeler RN) Smoking Status: Never smoker alcohol intake: never substance use type: denies use current occupational status: retired Travel in the last 8 weeks: None household members: spouse housing: house current occupational exposures/hazards: No caffeine: Yes [facility] Anesthesia Checklist Patient Identification Patient Identification: Arm Band Structural Data Admitted From: Home Planned Operative Procedure/s: BMT Consent for Planned Operative Procedure(s) Verified: Yes Verified Documents: Surgical Consent and History and Physical NPO Status Verified Time NPO: 00:00 Additional verifications Anesthesia Reactions: No Hx Blood Transfusions: Yes Blood Transfusion Reaction: No Airway Assessment Mallampati Score:: Class II C-Spine Mobility Assessed: Yes TMJ Mobility Assessed: Yes Dentition: Edentulous Neurological Assessment Level of Consciousness: Awake and Alert Anesthesia Plan Anesthesia Risk discussed: Yes Anesthesia Plan: Verified ASA Class: III Anesthesia Type: MAC
[2023-06-25 13:25] VITALS: BP 126/78; PULSE 65; RESP 17; O2SAT 99
--- NOTE | 2023-06-25 13:28 | SUR.OPER ---
1244: Skin assessment upon entering OR: Patient presented to OR with multiple bruising and scabbing to bilateral arms. Had open blister area to Right forefinger, top knuckle at side towards thumb. Patient presented to the OR with scabbed areas to the front of bilateral lower legs. Dry, cracked, orange colored skin surrounded scabbed areas to front of bilateral lower legs. 1304: Skin assessment upon exiting OR: no change to entering OR skin assessment noted at this time.
[2023-06-25 13:35] VITALS: BP 126/78; PULSE 69; RESP 17; O2SAT 98
== END 2023-06-25 13:35 | disposition home or self-care (01) ==
PROVIDERS: PCP Family Medicine; Visit Provider Otolaryngology
PROC: (CPT 69436; principal; 2023-06-25 11:45)
DX: H65.23 Chronic serous otitis media, bilateral (principal)
CPT/HCPCS: 69436

== ENCOUNTER → 2023-08-20 09:35 | Outpatient (CLI) | payer MEDICARE, SELFPAY ==
--- NOTE | 2023-08-20 09:43 | XR_ITS ---
FINAL REPORT CLINICAL HISTORY: DEFORMITY OF RT HAND COMPARISON: None FINDINGS: RIGHT HAND Three views demonstrate no acute fracture or dislocation. The hand is held in partial flexion on every sequence. There is heterotrophic change at the second and third distal inner phalangeal joints. Soft tissue swelling is present on the dorsum of the hand which measures 1.3 cm in thickness. There is a lucent defect at the base of the first proximal phalanx with a fragment adjacent to the lucency measuring 6 mm in diameter. This may represent a fracture of uncertain chronicity. The visualized joint spaces are normally aligned. IMPRESSION: Hand is held in flexion on all views, and a palmar flexion contracture cannot be excluded. Degenerative change, and dorsal soft tissue swelling as described. Lucent defect at the base of the first proximal phalanx, with a fragment of uncertain chronicity adjacent to the lucency as described. Clinical correlation is suggested. Reviewed, Interpreted and Dictated by León Wu MD Transcribed by Agata Chandler Authenticated and [facility]
== END ==
PROVIDERS: PCP Family Medicine; Visit Provider Nurse Practitioner Family
DX: M21.941 Unspecified acquired deformity of hand, right hand (principal)
CPT/HCPCS: 73130

== ENCOUNTER 2023-09-03 13:47 | Outpatient (CLI) | payer MEDICARE, SELFPAY ==
--- NOTE | 2023-09-03 | CA_ITS ---
APPROVED REPORT EXAM: Comprehensive 2D, Doppler, and color-flow Echocardiogram Medical Radiation Therapist: Sola Salgado CRT Ht: 5 ft 8 in Wt: 153lbs BSA: 1.82 BP: 170/90 mmHg Indications: Shortness of Breath, Atrial Fibrillation, Hypertension/HDD 2D Dimensions Left Atrium 3.59 cm LVEF (Forde's) 48.00 % LVOT 1.98 cm (M/F) 1.5-2.5 LV Volume 98.50 mL LA Volume 37.10 mL LA Volume Index 20.40 mL/m2 (M/F) 16-34 EF AP4 56.90 % EF AP2 41.8 % EF BP 48.0 % GL Strain -13.1 % M-Mode Dimensions RVDd 2.43 cm (0.9-2.6) LVDd 3.93 cm (3.5-5.7) Ao Diam 4.16 cm (2.0-3.7) LVDs 3.04 cm (3.5-5.7) IVSd 2.14 cm (0.6-1.1) PWd 1.14 cm (0.6-1.1) EF (Teich) 46.10% FS 22.60% EDV (Teich) 67.10 mL TAPSE 2.08 (<1.7) ESV (Teich) 36.20 mL LV Diastology MED E' 4.0 (>= 7 cm/sec) MED A' 7.10 cm/s LAT E' 3.3 (>= 10 cm/sec) LAT A' 13.80 cm/s Aortic Valve AoV Peak Jim. 111.0 (50-130 cm/s) AI PHT 678.00 ms AO Peak GR. 5.00 mmHg Tricuspid Valve TR P. Velocity 216.00 cm/s RAP Estimate 10.00 mmHg RVSP 28.60 mmHg Left Ventricle The left ventricle is normal size. The left ventricular systolic function is normal. The left ventricular ejection fraction is within the normal range. There is marked increase in LV wall thickness (IVSd 1.4 cm). There is normal LV segmental wall motion. Diastolic function is indeterminate. LVEF is 55%. Right Ventricle The right ventricle is normal size. The right ventricular systolic function is normal. Atria The left atrium size is normal. The right atrium size is normal. Aortic Valve The aortic valve is mildly thickened. There is no aortic valvular stenosis. Trace aortic regurgitation. Mitral Valve There is mild mitral annular calcification (MAC). The mitral valve leaflets are mildly thickened. No evidence of mitral valve stenosis. Mild to moderate mitral regurgitation. Tricuspid Valve The tricuspid valve leaflets are thin and pliable. Mild tricuspid regurgitation. RVSP is normal. Pulmonic Valve The pulmonary valve is normal in structure. Trace pulmonic regurgitation. Great Vessels The aortic root is normal in size. The IVC is dilated, but collapses > 50% with respirophasic variation. The RA pressure is estimated at 8 mmHg. Pericardium There is no pericardial effusion. Other Information Study Quality: Fair Conclusion Normal biventricular systolic function. marked increase in LV wall thickness (IVSd 1.4 cm). Mild to moderate MR. Mild TR. Considering the presence of persistent symptoms and marked increase LV wall thickness, further evaluation for infiltrative disease, namely amyloidosis, is recommended with PYP scan, cardiac MRI (amyloidosis protocol), and lab work-up. Electronically signed by : Milka Disla MD 09/06/2023 16:41:34
== END 2023-09-03 23:59 ==
LOC: RT 13:48
PROVIDERS: PCP Family Medicine; Visit Provider Family Medicine
DX: R06.02 Shortness of breath (principal)
CPT/HCPCS: 93306

== ENCOUNTER 2023-09-14 12:39 | Emergency (ER) | payer MEDICARE, SELFPAY ==
[2023-09-14 12:49] VITALS: BP 181/111; PULSE 63; RESP 20; TEMP 36.9; O2SAT 95; BMI 22.8
--- NOTE | 2023-09-14 13:18 | PC.NURSE ---
Pt wound cleaned with hibiclens and sterile water
--- NOTE | 2023-09-14 13:28 | PC.NURSE ---
DR MONTOYA AT BEDSIDE
--- NOTE | 2023-09-14 13:30 | CT_ITS ---
PROCEDURE INFORMATION: Exam: CT Cervical Spine Without Contrast Exam date and time: 09/14/2023 1:44 PM Age: 83 years old Clinical indication: Injury or trauma; Fall; Blunt trauma; Additional info: Fall, head injury TECHNIQUE: Imaging protocol: Computed tomography of the cervical spine without contrast. Radiation optimization: All CT scans at this facility use at least one of these dose optimization techniques: automated exposure control; mA and/or kV adjustment per patient size (includes targeted exams where dose is matched to clinical indication); or iterative reconstruction. COMPARISON: CT CERVICAL SPINE WO CON 06/13/2023 7:25 AM FINDINGS: Bones/joints: No acute fracture or traumatic subluxation. C4 on C5 anterolisthesis. The atlantooccipital and atlantoaxial articulations are intact. Occipital condyles are intact. Facet joint alignments are maintained. Age-related degenerative disc disease. Multilevel degenerative changes of the cervical spine. Prevertebral and retropharyngeal spaces: No prevertebral soft tissue swelling. Lungs: Lung apices are normal. Pleural spaces: Pleural effusions bilaterally. Soft tissues: Unremarkable. IMPRESSION: No acute fracture or traumatic subluxation.
--- NOTE | 2023-09-14 13:30 | CT_ITS ---
PROCEDURE INFORMATION: Exam: CT Head Without Contrast Exam date and time: 09/14/2023 1:42 PM Age: 83 years old Clinical indication: Injury or trauma; Fall; Blunt trauma (contusions or hematomas); Consciousness not specified; Additional info: Fall, head injury TECHNIQUE: Imaging protocol: Computed tomography of the head without contrast. Radiation optimization: All CT scans at this facility use at least one of these dose optimization techniques: automated exposure control; mA and/or kV adjustment per patient size (includes targeted exams where dose is matched to clinical indication); or iterative reconstruction. COMPARISON: CT HEAD/BRAIN WO CON 06/13/2023 7:23 AM FINDINGS: Brain: Age-related involutional changes and chronic microvascular ischemic disease. No evidence for acute transcortical infarct. No mass effect or midline shift. No extra-axial collection. No acute intracranial hemorrhage. Basal cisterns are patent. Cerebral ventricles: No ventriculomegaly. Paranasal sinuses: Visualized sinuses are unremarkable. No fluid levels. Mastoid air cells: Visualized mastoid air cells are well aerated. Orbital cavities: Bilateral cataract surgery. Bones/joints: No acute calvarial fracture. Soft tissues: Right parieto-occipital scalp hematoma. No radiopaque foreign body. IMPRESSION: 1. Right parieto-occipital scalp hematoma. No radiopaque foreign body. No acute calvarial fracture. 2. No evidence for acute transcortical infarct, acute intracranial hemorrhage, or mass effect.
--- NOTE | 2023-09-14 13:31 | ED_ITS ---
Discharge Plan Disposition Patient Disposition: Home, Self-Care Prescriptions Prescriptions: No Action fluticasone propionate [Flonase Allergy Relief] 50 mcg/actuation spray,suspension 2 spray intranasal DAILY Qty: 16 2RF Rx Instructions: administer into each nostril levocetirizine [Xyzal] 5 mg tablet 5 mg PO DAILY Qty: 30 2RF finasteride 5 MG tablet 5 mg PO DAILY tamsulosin 0.4 mg capsule 0.4 mg PO HS sevelamer carbonate 800 mg tablet 800 mg PO TID amiodarone 200 MG tablet 200 mg PO DAILY oxybutynin chloride 5 MG tablet 15 mg PO BID Referrals Follow up/Referrals: Joe Shaffer MD [Primary Care Provider] - See instructions Activity Restrictions/Add. Instructions Additional Instructions/Restrictions: Please have your arlene removed in 10 days. Clinical Impressions Clinical Impression: Hematoma of occipital region of scalp, Nausea & vomiting, Laceration of scalp, Fall, Avulsion of soft tissue, Back contusion Discharge ED Provider: Sophei Núñez General Adult HPI General Chief complaint: Fall Stated complaint: AO fall hit head Time Seen by Provider: 09/14/23 13:23 Mode of Arrival: Wheelchair Source of Information: Patient Limitations: No Limitations Description of Symptoms (Recalled from ER Triage Doc. by RN): patient and spouse report patient had a fall about 30 minutes ago. Fell while walking at home per spouse, fall was witnessed. Patient fell backwards and hit his head on hard wood christiane. Spouse reports no LOC. Knot present to back of head with bleeding. Spouse reports multiple falls recently. Patient reports pain only to back of head. History of Present Illness HPI narrative: Patient is an 83-year-old gentleman who has a history of end-stage renal disease on dialysis presenting today after a mechanical fall falling and hitting the posterior aspect of his scalp. No loss of consciousness his mental status has been at his baseline however he has had a few episodes of nausea and vomiting since this happened but he felt fine prior to this. Related Data Home Medications Medication Instructions Recorded Confirmed finasteride 5 mg tablet 5 mg PO DAILY PROSTATE 11/14/20 07/23/23 amiodarone 200 mg tablet 200 mg PO DAILY heart rate 02/06/21 07/23/23 oxybutynin chloride 5 mg tablet 15 mg PO BID . 04/12/22 11/22/23 sevelamer carbonate 800 mg tablet 800 mg PO TID . 01/13/23 07/23/23 tamsulosin 0.4 mg capsule 0.4 mg PO HS prostate 01/13/23 07/23/23 Previous Rx's Medication Instructions Recorded fluticasone propionate 50 2 spray intranasal DAILY #16 grams 05/28/23 mcg/actuation nasal spray,suspension (Flonase Allergy Relief) levocetirizine 5 mg tablet (Xyzal) 5 mg PO DAILY #30 tabs 05/28/23 Allergies Allergy/AdvReac Type Severity Reaction Status Date / Time No Known Allergies Allergy Verified 07/23/23 14:01 [facility] Disclaimer: The information contained in this section may have been updated after the patient was seen, as this information can be updated by other users. Medical History (Updated 09/14/23 @ 14:19 by Sophie Núñez MD) 1st degree AV block Atrial fibrillation Bilateral hearing loss Bilateral serous otitis media Dyspnea Poor balance Surgical History (Updated 07/23/23 @ 14:03 by Ying Dodge CMA) History of back surgery History of prostate surgery Status post myringotomy with tube placement of both ears Family History Other No significant family history Social History Smoking Status: Never smoker alcohol intake: never substance use type: denies use current occupational status: retired Travel in the last 8 weeks: None household members: spouse housing: house current occupational exposures/hazards: No caffeine: Yes ROS Obtained: Yes All systems reviewed & no additional complaints except as documented Physical Exam General General appearance: alert Head Head exam: other (There is a posterior occipital scalp hematoma with 2 cm vertically oriented laceration) Neck Neck exam: Absent tenderness Respiratory Respiratory exam: Present normal lung sounds bilaterally Cardiovascular Cardiovascular exam: Present regular rate Neurological Exam Neurological exam: Present alert, oriented X3, CN II-XII intact and normal gait; Absent motor sensory deficit Medical Decision Making Mati Inquiry Pt receiving controlled substance: No Vital Signs: 09/14/23 12:49 Temperature 98.4 F Temperature Source Oral Pulse Rate [Right Brachial] 63 Respiratory Rate 20 Blood Pressure [Right Arm] 181/111 H Blood Pressure Mean [Right Arm] 134 Blood Pressure Source [Right Arm] Automatic Cuff Blood Pressure Position [Right Arm] Supine 02 Sat by Pulse Oximetry 95 Oxygen Delivery Method Room Air Orders (Tests/Meds): ORDERS Category Date Time Status CT cervical spine wo con Stat Cat Scan 09/14/23 13:[address] head/brain wo con Stat Cat Scan 09/14/23 13:30 Completed Medical Decision Narrative: 83-year-old with mechanical fall presents today with scalp hematoma and laceration we will get a CT scan of the patient's head and cervical spine to rul e out any need for surgical intervention. Will reassess after his scans are done and wound has been repaired. On reassessment patient complained of some ecchymosis and superficial skin avulsions on the right dorsal aspect of the right arm there is no significant tenderness over this he has normal range of motion this is not consistent with a fracture dislocation local wound care discussed. Additionally had a small ecchymotic area on the lower aspect of his back with no significant tenderness in the midline also has normal neurovascular exam distal to this this is not consistent with a spine fracture. No further imaging was done. After cleaning up the patient's wound on his scalp it did not extend deep to located evacuate the hematoma wound management discussed arlene placed there were advised to take arlene out in 10 days patient was discharged in stable condition. CT scans performed which I first interpreted shows no acute intracranial abnormality or cervical spine abnormality family agreeable to this plan patient discharged stable condition. Procedures Laceration Laceration 1: Site: scalp Size (cm): 6 Description: irregular (Y-shaped) Depth: simple, single layer (Did not extend deep to to where I could evacuate hematoma) Local Anesthetic: lidocaine 1% and with epi Pre-repair: wound explored and deep structures intact Skin layer closed with: other (Arlene) Critical Care Critical Care Time Critical Care Time: No
[2023-09-14] MEDS: ONDANSETRON 4MG ODT 4 MG SL (14:26)
[2023-09-14 14:36] VITALS: BP 167/96; PULSE 58; RESP 20; TEMP 36.6; O2SAT 95
== END 2023-09-14 14:38 | disposition home or self-care (01) ==
PROVIDERS: Emergency Provider Student in an Organized Health Care Education/Training Program; PCP Family Medicine
DX: S01.01XA Laceration without foreign body of scalp, initial encounter (principal); S20.229A Contusion of unspecified back wall of thorax, initial encounter; S51.801A Unspecified open wound of right forearm, initial encounter; R11.2 Nausea with vomiting, unspecified; N18.6 End stage renal disease; Z99.2 Dependence on renal dialysis; W18.30XA Fall on same level, unspecified, initial encounter
CPT/HCPCS: 12002; 70450; 72125; 99285

== ENCOUNTER 2023-10-27 04:43 | Emergency (ER) | payer MEDICARE, SELFPAY ==
[2023-10-27] VITALS (13 sets, daily range): BP systolic 123–147; BP diastolic 75–87; PULSE 55–75; RESP 16–18; TEMP 36.7; O2SAT 97–100; BMI 22.7
--- NOTE | 2023-10-27 04:46 | ECG_ITS ---
APPROVED REPORT Exam: Resting ECG HR:71 bpm ECG Measurements Heart Rate 71 AXES SC 202 P 13 QRSd 86 QRS 71 QT 440 T 70 QTc 463 Conclusion SINUS RHYTHM PROLONGED QT INTERVAL ABNORMAL ECG UNCONFIRMED REPORT Electronically signed by : Anup Maldonado MD 10/27/2023 20:00:04
--- NOTE | 2023-10-27 04:52 | CT_ITS ---
PROCEDURE INFORMATION: Exam: CTA Abdomen and Pelvis Without And With Contrast Exam date and time: 10/27/2023 5:12 AM Age: 83 years old Clinical indication: Other: Blood in stool; Additional info: Brbpr TECHNIQUE: Imaging protocol: Computed tomographic angiography of the abdomen and pelvis without and with contrast. Exam focused on the arteries. 3D rendering (Not supervised by radiologist): MIP and/or 3D reconstructed images were created by the technologist. Radiation optimization: All CT scans at this facility use at least one of these dose optimization techniques: automated exposure control; mA and/or kV adjustment per patient size (includes targeted exams where dose is matched to clinical indication); or iterative reconstruction. Contrast material: ISOVUE 370; Contrast volume: 100 ml; Contrast route: INTRAVENOUS (IV); COMPARISON: CT ABDOMEN PELVIS WO CON 12/11/2021 3:51 PM FINDINGS: Coronary arteries: Coronary atherosclerosis. Aorta: Ectasia of the infrarenal abdominal aorta and tortuosity of the iliac arteries. Celiac trunk and mesenteric arteries: No occlusion or significant stenosis. Renal arteries: No occlusion or significant stenosis. Right iliac arteries: No occlusion or significant stenosis. Left iliac arteries: No occlusion or significant stenosis. Liver: No mass. Gallbladder and bile ducts: Unremarkable. No calcified stones. No ductal dilation. Pancreas: Unremarkable. No mass. No ductal dilation. Spleen: Unremarkable. No splenomegaly. Adrenal glands: Unremarkable. No mass. Kidneys and ureters: Bilateral renal cortical atrophy. Stomach and bowel: Unremarkable. No obstruction. No mucosal thickening. Appendix: No evidence of appendicitis. Intraperitoneal space: Unremarkable. No free air. No significant fluid collection. Lymph nodes: Unremarkable. No enlarged lymph nodes. Urinary bladder: Unremarkable. No mass. Reproductive: Unremarkable as visualized. Bones/joints: Degenerative changes lumbar spine with multilevel vacuum disc phenomena multiple areas of marginal osteophytosis. Soft tissues: Unremarkable. IMPRESSION: 1. No evidence of rectal, colonic or other bleed. No acute process identified. 2. Coronary atherosclerosis. 3. Infrarenal abdominal aorta ectasia and tortuosity. No aneurysm. 4. Bilateral renal cortical atrophy.
--- NOTE | 2023-10-27 04:55 | ED_ITS ---
Discharge Plan Disposition Patient Disposition: Xfer Short-Term Hosp Condition: Fair Chief Complaint: GI Bleed Prescriptions Prescriptions: No Action fluticasone propionate [Flonase Allergy Relief] 50 mcg/actuation spray,suspension 2 spray intranasal DAILY Qty: 16 2RF Rx Instructions: administer into each nostril levocetirizine [Xyzal] 5 mg tablet 5 mg PO DAILY Qty: 30 2RF finasteride 5 MG tablet 5 mg PO DAILY tamsulosin 0.4 mg capsule 0.4 mg PO HS sevelamer carbonate 800 mg tablet 800 mg PO TID amiodarone 200 MG tablet 200 mg PO DAILY oxybutynin chloride 5 MG tablet 15 mg PO BID Clinical Impressions Clinical Impression: GI bleed, Bright red blood per rectum Instructions Patient Instructions: DI for Gastrointestinal Bleeding Discharge ED Provider: Ella Mejia General Adult HPI General Chief complaint: GI Bleed Stated complaint: rectal bleeding Time Seen by Provider: 10/27/23 04:51 Mode of Arrival: Wheelchair Source of Information: Patient Limitations: No Limitations Description of Symptoms (Recalled from ER Triage Doc. by RN): 83 year old male with complaints of rectal bleeding. Patient states it started lastnight. States he woke up at 2 am and has had 2 bowel movements that have been bright red in color. States there is significant amounts. Patients states he has had this once in the past that resulted in a busted blood vessel in his rectum. History of Present Illness HPI narrative: 83-year-old male with a history of hypertension, renal failure on dialysis at [facility] presents to the ER with concerns of bright red blood per rectum. Pat ient states he has had 3 bowel movements since last night that were bright red in color. He states there is significant amounts of blood in that he had to scrub the toilet bowl in order to clean it up. Patient states this happened once before many years ago related to a broken blood vessel in his rectum. Patient denies any chest pain or shortness of breath. He states he has not had any nausea or vomiting, no abdominal pain. Patient is due for dialysis this morning at [facility]. He does not take any blood thinners. He denies any recent hemorrhoids or rectal trauma. Related Data Home Medications Medication Instructions Recorded Confirmed finasteride 5 mg tablet 5 mg PO DAILY PROSTATE 11/14/20 10/21/23 amiodarone 200 mg tablet 200 mg PO DAILY heart rate 02/06/21 10/21/23 oxybutynin chloride 5 mg tablet 15 mg PO BID . 12/11/21 10/21/23 sevelamer carbonate 800 mg tablet 800 mg PO TID . 01/13/23 10/21/23 tamsulosin 0.4 mg capsule 0.4 mg PO HS prostate 01/13/23 10/21/23 Previous Rx's Medication Instructions Recorded fluticasone propionate 50 2 spray intranasal DAILY #16 grams 05/28/23 mcg/actuation nasal spray,suspension (Flonase Allergy Relief) levocetirizine 5 mg tablet (Xyzal) 5 mg PO DAILY #30 tabs 05/28/23 Allergies Allergy/AdvReac Type Severity Reaction Status Date / Time No Known Allergies Allergy Verified 10/21/23 13:29 [facility] Disclaimer: The information contained in this section may have been updated after the patient was seen, as this information can be updated by other users. Medical History (Updated 10/27/23 @ 06:56 by Ella Mejia MD) 1st degree AV block Atrial fibrillation Bilateral hearing loss Bilateral serous otitis media Bleeding from right ear Dyspnea Poor balance Traumatic hematoma of right ear canal Surgical History History of back surgery History of prostate surgery Status post myringotomy with tube placement of both ears Family History Other No significant family history Social History Smoking Status: Never smoker alcohol intake: never substance use type: denies use current occupational status: retired Travel in the last 8 weeks: None household members: spouse housing: house current occupational exposures/hazards: No caffeine: Yes ROS Obtained: Yes All systems reviewed & no additional complaints except as documented Constitutional Constitutional: Denies chills, Denies fever(s), Denies headache(s) and Denies weakness Eyes Eyes: Denies change in vision ENT Ears, Nose, Mouth, and Throat: Denies dizziness, Denies headache(s), Denies nasal congestion and Denies sore throat Cardiovascular Cardiovascular: Denies chest pain, Denies dyspnea and Denies leg edema Respiratory Respiratory: Denies cough and Denies dyspnea Gastrointestinal Gastrointestingal: Reports diarrhea and hematochezia; Denies constipation, nausea or vomiting Genitourinary Male Genitourinary: Denies difficulty urinating Musculoskeletal Musculoskeletal: Denies arthralgias, Denies myalgias, Denies numbness and Denies tingling Integumentary/Breasts Skin/Breast: Denies change in pigmentation Neurologic Neurologic: Denies dizziness, Denies headache(s), Denies numbness, Denies tingling and Denies weakness Physical Exam General General appearance: alert and in no apparent distress Head Head exam: atraumatic and normocephalic Eye Eye exam: Present PERRL and EOMI ENT ENT exam: Present mucous membranes moist Neck Neck exam: Present normal inspection and full ROM Chest Chest inspection: Present symmetric chest wall rise Respiratory Respiratory exam: Present normal lung sounds bilaterally; Absent respiratory distress, wheezes or stridor Cardiovascular Cardiovascular exam: Present regular rate and normal rhythm Abdominal Exam Abdominal exam: Present soft; Absent distention, tenderness, guarding or rebound Rectal Exam Rectal exam: Present normal rectal tone and bloody stool (red/brown stool on gl ove); Absent hemorrhoids, mass or tenderness Extremities Exam Extremities exam: Present full ROM Neurological Exam Neurological exam: Present alert and oriented X3; Absent motor sensory deficit Psychiatric Psychiatric exam: Present normal affect and normal mood Skin Skin exam: Present warm, dry and pallor Medical Decision Making Mati Inquiry Pt receiving controlled substance: No Vital Signs: 10/27/23 04:47 10/27/23 05:00 10/27/23 05:25 Temperature 98.1 F Temperature Source Oral Pulse Rate 72 64 Pulse Rate [Left Radial] 72 Respiratory Rate 18 Blood Pressure 125/76 144/86 H Blood Pressure [Right Arm] 132/84 Blood Pressure Mean 101 110 Blood Pressure Mean [Right Arm] 100 02 Sat by Pulse Oximetry 100 100 99 Oxygen Delivery Method Room Air 10/27/23 05:30 10/27/23 06:00 Temperature Temperature Source Pulse Rate 63 55 L Pulse Rate [Left Radial] Respiratory Rate Blood Pressure 144/81 H 147/83 H Blood Pressure [Right Arm] Blood Pressure Mean 107 104 Blood Pressure Mean [Right Arm] 02 Sat by Pulse Oximetry 99 100 Oxygen Delivery Method Lab Data Lab Results 10/27/23 04:53: WBC 4.8, RBC 2.70 L, Hgb 9.3 L, Hct 30.3 L, MCV 112.6 H, MCH 34.5 H, MCHC 30.6 L, RDW 15.6, Plt Count 182, MPV 8.4, Neut % (Auto) 75.0, Lymph % (Auto) 17.8, [place] % (Auto) 4.6, Eos % (Auto) 2.2, Baso % (Auto) 0.4, Neut # (Auto) 3.6, Lymph # (Auto) 0.9, [place] # (Auto) 0.2, Eos # (Auto) 0.1, Baso # (Auto) 0.0, PT 12.8 H, INR 1.20 H, APTT 26.8, Sodium 134 L, Potassium 4.7, Chloride 101, Carbon Dioxide 28, Anion Gap 9.7, BUN 49 H, Creatinine 4.90 H, Estimated Creat Clear 11, Estimated GFR 11 L*, Est GFR ( Amer) 14 L*, Glucose 160 H, Calcium 7.7 L, Total Bilirubin 1.0, AST 45, ALT 39, Alkaline Phosphatase 67, Total Protein 5.5 L, Albumin 3.3 L, Globulin 2.2, Albumin/Globulin Ratio 1.5 10/27/23 05:30: Blood Type A Positive, Antibody Screen Negative 10/27/23 04:53 10/27/23 04:53 Orders (Tests/Meds): ED MEDICATIONS Discontinued Medications Generic Name Dose Route Start Last Admin Trade Name Freq PRN Reason Stop Dose Admin Lactated Ringer's 500 mls @ 999 mls/hr 10/27/23 05:08 10/27/23 05:30 Lactated Ringer's 500ml IV 10/27/23 05:38 999 mls/hr .Q31M ONE Administration Iopamidol 100 ml 10/27/23 05:21 10/27/23 05:23 Iopamidol-370 (76%);100ml Bottle IV 10/27/23 05:22 100 ml ONCE ONE Administration Sodium Chloride 10 ml 10/27/23 05:21 10/27/23 05:23 Sodium Chloride 0.9% 10ml Syr (Rad Only) IV 10/27/23 05:22 10 ml ONCE ONE Administration Sodium Chloride 50 ml 10/27/23 05:21 10/27/23 05:23 0.9 % Sodium Chloride 50 Ml Vial IV 10/27/23 05:22 50 ml ONCE ONE Administration ORDERS Category Date Time Status Type and Screen Stat BBK 10/27/23 05:[address] angio abdomen pelvis Stat Cat Scan 10/27/23 04:52 Completed CBC w/Auto Diff [Complete Blood Count Auto Diff] Stat Lab 10/27/23 04:53 Completed CMP [Comprehensive Metabolic Panel] Stat Lab 10/27/23 04:53 Completed PT INR [Prothrombin Time INR] Stat Lab 10/27/23 04:53 Completed PTT [Activated Partial Thrombo Time] Stat Lab 10/27/23 04:53 Completed Medical Decision Narrative: In summary, this 83year old male presents to the emergency department today with multiple bright red bowel movements. On initial evaluation patient is hemodynamically stable, afebrile, pale appearing but not tachycardic or tachypneic, nonacute abdomen, no tenderness in the abdomen, cardiopulmonary exam reassuring, rectal exam with red/brown blood on the glove, no hemorrhoids or fissures, no obvious source of bleeding, no tenderness. Differential diagnosis includes but is not limited to lower GI bleed, bleeding hemorrhoid, anemia, electrolyte abnormalities, coagulopathy. Comorbidities of current condition include prior episode of bright red blood per rectum which increases risk of recurrence, renal failure on dialysis which increases patient's overall morbidity. Based on these concerns, I ordered basic labs including CBC, blood count, CMP, type and screen, CT angiography of the abdomen, pelvis to evaluate for obvious brisk bleeding. ECG was performed due to patient's pallor and concern for potential hemodynamic instability. ECG personally interpreted demonstrates sinus rhythm with first- degree AV block, rate 71, normal axis, no STEMI. Patient received IV fluids for treatment. Labs personally reviewed demonstrate no leukocytosis, anemia with hemoglobin 9.3 which is down 2 points from June 2023 based off my review of prior records, macrocytic anemia, trace hyponatremia, nonactionable at this time, hypocalcemia also present with calcium 7.7, nonactionable at this time. Patient has findings of ESRD with creatinine 4.90, no liver dysfunction, []. CT angio abdomen pelvis personally interpreted does not demonstrate any obvious blush into the lumen of the GI tract, no findings of obstruction, significantly atrophied kidneys consistent with his known ESRD. See radiology read for final interpretation. On reassessment patient remains stable but had another bloody bowel movement in the ED. Patient received IV Protonix. Patient requires transfer for GI bleed in the setting of ESRD needing dialysis which is usually performed at [facility]. I have reached out to [facility] transfer center regarding patient's presentation and current findings. At this time awaiting a call back regarding transfer acceptance. 1939 I had an interactive discussion with Dr. Leong, GI at [facility], who is in agreement with the plan for transfer, he is a consulting physician, not the accepting physician for transfer. Awaiting callback again for hospitalist acceptance. [id number] I discussed this case with Dr. Alfonso, hospitalist at [facility], who accepted the patient for transfer. Critical Care Critical Care Time Critical Care Time: No
[2023-10-27 05:02] LABS: Basophils % 0.4 % (0.1-2.0); Eosinophils # 0.1 K/mm3 (0.0-0.4); Eosinophils % 2.2 % (0.1-12.0); Hematocrit 30.3 % (42.0-52.0); Hemoglobin 9.3 g/dL (14.1-18.0); Lymphocytes # 0.9 K/mm3 (0.7-4.5); Lymphocytes % 17.8 % (10-50); Mean Corpuscular HGB Conc 30.6 g/dL (31.8-35.4); Mean Corpuscular Hemoglobin 34.5 pg (27.0-31.2); Mean Corpuscular Volume 112.6 fl (80-94); Mean Platelet Volume 8.4 fl (7.4-10.4); Monocytes # 0.2 K/mm3 (0.1-1.0); Monocytes % 4.6 % (1.7-9.3); Neutrophils # 3.6 K/mm3 (1.8-7.8); Platelet Count 182 K/mm3 (142-424); Red Cell Distribution Width 15.6 % (11.5-17.5); White Blood Count 4.8 K/mm3 (4.8-10.8)
[2023-10-27 05:05] LABS: Chloride 101 mmol/L (98-107); Sodium 134 mmol/L (136-145)
[2023-10-27 05:06] LABS: Potassium 4.7 mmoL/L (3.5-5.1)
[2023-10-27 05:08] LABS: Alanine Aminotransferase 39 U/L (12-78); Albumin Level 3.3 g/dl (3.5-5.0); Albumin/Globulin Ratio 1.5 (1.1-1.8); Alkaline Phosphatase 67 U/L (38-126); Anion Gap 9.7 mEq/L (5-15); Aspartate Amino Transferase 45 U/L (17-59); Blood Urea Nitrogen 49 mg/dl (9-20); Carbon Dioxide 28 mmol/L (22.0-30.0); Creatinine Clearance Estimated 11 mL/min (50-200); Estimated Glomerular Filt Rate 11 ml/min (>60); GFR (African American) 14 ML/MIN (>60); Globulin 2.2 g/dL (1.3-3.2); Total Protein,Serum 5.5 g/dl (6.3-8.2)
[2023-10-27 05:09] LABS: Calcium 7.7 mg/dl (8.4-10.2); Glucose 160 mg/dl (74-100)
[2023-10-27 05:17] LABS: Activated Partial Thrombo Time 26.8 seconds (22.8-30.6); Prothrombin Time 12.8 seconds (10.1-12.5)
[2023-10-27] MEDS: SODIUM CHLORIDE 0.9% 10ML SYR (RAD ONLY) 10 ML IV (05:23)
[2023-10-27] MEDS: 0.9 % SODIUM CHLORIDE 50 ML VIAL IV (05:23)
[2023-10-27] MEDS: IOPAMIDOL-370 (76%);100ML BOTTLE 100 ML IV (05:23)
--- NOTE | 2023-10-27 05:23 | HMH.ITSTN ---
MD AWARE PT IS ON DIALYSIS , AND MUST HAVE TREATMENT WITHIN 24 HOURS
[2023-10-27] MEDS: RINGERS SOLUTION,LACTATED 500 ML 999 ML IV (05:30)
--- NOTE | 2023-10-27 05:47 | PC.NURSE ---
[facility] transfer center contacted over transfer for a GI bleed. Stated they would call back.
--- NOTE | 2023-10-27 06:05 | PC.NURSE ---
contacted [facility] transfer paris again in regards to ths transfer and a status update. They would contact us back when they can.
--- NOTE | 2023-10-27 06:52 | PC.NURSE ---
[facility] transfer center called back with Dr. Alfonso for Dr. Mejia.
[2023-10-27] MEDS: PANTOPRAZOLE SODIUM 80 MG in 0.9 % SODIUM CHLORIDE 100 ML 100 MG IV (07:01)
--- NOTE | 2023-10-27 07:06 | PC.NURSE ---
Pt resting in bed. No needs or complaints voiced. Call light within reach.
--- NOTE | 2023-10-27 07:43 | PC.NURSE ---
Rounded on pt. No needs voiced. Call light remains within reach.
--- NOTE | 2023-10-27 08:08 | PC.NURSE ---
Pt resting. No needs voiced. Call light within reach.
--- NOTE | 2023-10-27 08:09 | PC.NURSE ---
[facility] called for facesheet to be faxed
--- NOTE | 2023-10-27 08:47 | PC.NURSE ---
Warm blanket provided to pt. No other needs voiced. Call light remains within reach.
--- NOTE | 2023-10-27 09:38 | PC.NURSE ---
called [facility] for update on bed placement, they are waiting on discharges
--- NOTE | 2023-10-27 10:02 | PC.NURSE ---
[facility] called with room and asked for facesheet to be faxed to [facility]
--- NOTE | 2023-10-27 10:16 | PC.NURSE ---
assisted pt to the [facility], large amount of red blood. Pt tolerated well, at bs with assisting as well.
--- NOTE | 2023-10-27 10:23 | PC.NURSE ---
Report called to Zoraida MALDONADO at [facility].
--- NOTE | 2023-10-27 11:07 | PC.NURSE ---
report given to Ty with [facility]. PT to transfer to [place]
== END 2023-10-27 11:23 | disposition short-term general hospital (02) ==
PROVIDERS: Emergency Medicine; Emergency Provider Emergency Medicine; PCP Family Medicine
DX: K92.2 Gastrointestinal hemorrhage, unspecified (principal); I44.0 Atrioventricular block, first degree; I48.91 Unspecified atrial fibrillation; N18.6 End stage renal disease; I12.0 Hypertensive chronic kidney disease with stage 5 chronic kidney disease or end stage renal disease
CPT/HCPCS: 36415; 74174; 80053; 85025; 85610; 85730; 86850; 93005; 99285; Q9967

== ENCOUNTER 2023-12-07 16:32 | Emergency (ER) | payer MEDICARE, SELFPAY ==
--- NOTE | 2023-12-07 16:37 | ED_ITS ---
<Statement entered by Sophie Núñez MD - 12/07/23 22:42> I was consulted by the BETH, and we discussed the complexity of the problems being addressed. I approved the treatment and management plan for this patient's care in the emergency department, thus performing a substantive portion of the medical decision making. Sophie Núñez MD, JOSE D, FACEP Discharge Plan Disposition Patient Disposition: Xfer Other Condition: Good Prescriptions Prescriptions: No Action fluticasone propionate [Flonase Allergy Relief] 50 mcg/actuation spray,suspension 2 spray intranasal DAILY Qty: 16 2RF Rx Instructions: administer into each nostril levocetirizine [Xyzal] 5 mg tablet 5 mg PO DAILY Qty: 30 2RF finasteride 5 MG tablet 5 mg PO DAILY tamsulosin 0.4 mg capsule 0.4 mg PO HS sevelamer carbonate 800 mg tablet 800 mg PO TID amiodarone 200 MG tablet 200 mg PO DAILY oxybutynin chloride 5 MG tablet 15 mg PO BID Referrals Follow up/Referrals: Joe Shaffer MD [Primary Care Provider] - See instructions Clinical Impressions Clinical Impression: Lymphedema, Contusion of arm, right Cellulitis Qualifiers: Site of cellulitis: extremity Site of cellulitis of extremity: lower extremity Stand Alone Forms Stand Alone Forms: Transfer Record - ED Discharge ED Provider: Sophie Núñez General Adult HPI General Chief complaint: Extremity Injury, Lower Stated complaint: poss inf RT foot Time Seen by Provider: 12/07/23 16:37 History of Present Illness HPI narrative: Patient presents for evaluation of a blister on his right foot. Patient is a 83-year-old gentleman with past medical history of end-stage renal disease on Friday dialysis, anemia of chronic disease, hypertension, prostatic hypertrophy. Patient reports increasing swelling of his bilateral lower extremities some of which is chronic however his right lower extremity has significantly increased in size. Patient also reports that he began developing blisters in places where his shoe rubs his foot. The leg began turning red yesterday and overnight developed weeping skin in those pressure points. Patient reports they are tender to palpation and cannot bear weight due to the swelling in his feet but denies chest pain fever chills hemoptysis hematochezia melena nausea vomit diarrhea. Patient also reports falling on his right elbow twice in the last week to week and a half. Patient states that he can have full range of motion however it is tender to put pressure on it. No other alleviating factors. Related Data Home Medications Medication Instructions Recorded Confirmed finasteride 5 mg tablet 5 mg PO DAILY PROSTATE 11/14/20 12/07/23 amiodarone 200 mg tablet 200 mg PO DAILY heart rate 02/06/21 12/07/23 oxybutynin chloride 5 mg tablet 15 mg PO BID . 12/11/21 12/07/23 sevelamer carbonate 800 mg tablet 800 mg PO TID . 01/13/23 12/07/23 tamsulosin 0.4 mg capsule 0.4 mg PO HS prostate 01/13/23 12/07/23 Previous Rx's Medication Instructions Recorded fluticasone propionate 50 2 spray intranasal DAILY #16 grams 05/28/23 mcg/actuation nasal spray,suspension (Flonase Allergy Relief) levocetirizine 5 mg tablet (Xyzal) 5 mg PO DAILY #30 tabs 05/28/23 Allergies Allergy/AdvReac Type Severity Reaction Status Date / Time No Known Allergies Allergy Verified 11/06/23 13:04 [facility] Disclaimer: The information contained in this section may have been updated after the patient was seen, as this information can be updated by other users. Medical History (Updated 12/07/23 @ 17:40 by SHEILA Connor) Traumatic hematoma of right ear canal Bleeding from right ear Bilateral serous otitis media Poor balance Bilateral hearing loss 1st degree AV block Dyspnea Atrial fibrillation Surgical History (Updated 11/06/23 @ 13:52 by Penelope Martin APRN) History of prostate surgery History of back surgery Family History Other No significant family history Social History Smoking Status: Never smoker alcohol intake: never substance use type: denies use current occupational status: retired Travel in the last 8 weeks: None household members: spouse housing: house current occupational exposures/hazards: No caffeine: Yes ROS Obtained: Yes Systems reviewed as appropriate & no additional complaints except as documented Physical Exam General General appearance: alert and in no apparent distress Head Head exam: atraumatic and normal inspection Eye Eye exam: Present normal appearance and PERRL ENT ENT exam: Present normal exam, normal oropharynx, mucous membranes moist and other (Severe presbycusis) Neck Neck exam: Present normal inspection and full ROM Chest Chest inspection: Present normal inspection and symmetric chest wall rise Respiratory Respiratory exam: Present normal lung sounds bilaterally; Absent respiratory distress, wheezes, stridor or accessory muscle use Cardiovascular Cardiovascular exam: Present regular rate and normal rhythm Abdominal Exam Abdominal exam: Present soft and normal bowel sounds; Absent tenderness Extremities Exam Extremities exam: Present normal inspection, full ROM, tenderness (Right lower extremity) and edema (Bilateral pitting edema right markedly greater than left. There is peau d'orange skin of the right lower extremity currently. There is erythema of the right lower extremity and the proximal border is marked with an ink pen by myself. ) Back Exam Back exam: Present normal inspection and full ROM Neurological Exam Neurological exam: Present alert and oriented X3 Psychiatric Psychiatric exam: Present normal affect and normal mood Skin Skin exam: Present warm, dry and other (Set up where mentioned above the musculoskeletal exam) Other Other exam information: Examination of the right upper extremity shows edema about the right elbow with ecchymosis around the olecranon and a small skin abrasion that does not appear to be infected. I do not feel any bony deformities and patient is neurovascularly intact distally of the right upper extremity. Palpation of the joint however is tender. Medical Decision Making Medical Records Medical records reviewed: Yes I reviewed the patient's medical records. Mati Inquiry Pt receiving controlled substance: No Vital Signs: 12/07/23 16:48 12/07/23 17:49 Temperature 98.2 F Temperature Source Oral Pulse Rate 66 Pulse Rate [Right Brachial] 70 Respiratory Rate 18 20 Blood Pressure 164/104 H Blood Pressure [Right Arm] 172/99 H Blood Pressure Mean [Right Arm] 123 Blood Pressure Source [Right Arm] Automatic Cuff Blood Pressure Position [Right Arm] Sitting 02 Sat by Pulse Oximetry 99 Oxygen Delivery Method Room Air Room Air Lab Data Lab results reviewed: Yes I reviewed the patient's lab results. Lab Results 12/07/23 17:20: WBC 11.6 H, RBC 3.63 L, Hgb 11.8 L, Hct 39.7 L, MCV 109.3 H, MCH 32.5 H, MCHC 29.7 L, RDW 16.4, Plt Count 387, MPV 8.3, Neut % (Auto) 87.4 H, L ymph % (Auto) 6.9 L, [place] % (Auto) 4.2, Eos % (Auto) 0.8, Baso % (Auto) 0.7, N eut # (Auto) 10.2 H, Lymph # (Auto) 0.8, [place] # (Auto) 0.5, Eos # (Auto) 0.1, Baso # (Auto) 0.1, Sodium 138, Potassium 3.6, Chloride 97 L, Carbon Dioxide 32 H , Anion Gap 12.6, BUN 47 H, Creatinine 5.00 H, Estimated Creat Clear 11, E stimated GFR 11 L*, Est GFR ( Amer) 14 L*, Glucose 124 H, Calcium 8.2 L, Magnesium 2.3, Total Bilirubin 1.0, AST 36, ALT 36, Alkaline Phosphatase 147 H, Total Protein 6.2 L, Albumin 3.2 L, Globulin 3.0, Albumin/Globulin Ratio 1.1 12/07/23 17:20 12/07/23 17:20 Orders (Tests/Meds): ED MEDICATIONS Generic Name Dose Route Start Last Admin Trade Name Freq PRN Reason Stop Dose Admin Vancomycin/PEG/NADA/Lysine/Water 1.75 gm in 350 mls @ 175 mls/hr 12/07/23 17:00 12/07/23 17:17 Vancomycin 1.75gm/350ml (Peg) Premix IV 12/07/23 18:59 175 mls/hr ONCE ONE Administration Miscellaneous 1 each 12/07/23 17:00 Vancomycin Consult Request NOTAPPLIC 01/06/24 16:59 [facility] Discontinued Medications Generic Name Dose Route Start Last Admin Trade Name Freq PRN Reason Stop Dose Admin Acetaminophen 1,000 mg 12/07/23 16:50 12/07/23 17:17 Acetaminophen 1,000mg/100ml Vial IV 12/07/23 16:51 1,000 mg ONCE ONE Administration ORDERS Category Date Time Status XR elbow RT 2V Stat Exams 12/07/23 17:34 Taken CBC w/Auto Diff [Complete Blood Count Auto Diff] Stat Lab 12/07/23 17:20 Results CMP [Comprehensive Metabolic Panel] Stat Lab 12/07/23 17:20 Completed Magnesium Stat Lab 12/07/23 17:20 Completed Blood Culture Stat Micro 12/07/23 17:20 Received Medical Decision Narrative: In summary patient is a 83-year-old gentleman who presents to the emergency department for evaluation of lymphangitis, cellulitis and skin breakdown. Patient is hemodynamically stable upon arrival, afebrile. Physical exam is remarkable for 3+ pitting edema of the right lower extremity 1+ pitting edema of the left. The right lower extremity is markedly erythematous with some skin breakdown at pressure points around his feet. There does not appear to be abscess and looks more like weeping blisters that have rubbed open. Right upper extremity is remarkable for edema and ecchymosis about the right elbow more prominently posteriorly. There is a small skin abrasion that appears to be moderately well-healed.. Differential diagnosis includes pharyngitis versus cellulitis versus abscess versus DVT versus heart failure versus renal failure, versus contusion of the right elbow versus occult fracture of the right elbow etc. Initial workup will be conducted with hematologic labs and blood cultures. I would consider vascular studies of his lower extremities and possibly a repeat echo. Previous one from 2020 was read as normal and patient reportedly had 1 in Sep of this year but I am unable to locate it currently.. Initial interventions include acetaminophen. Initial workup reviewed by me shows slightly elevated white count and absolute neutrophil count of 10.2, my informal interpretation of his plain film x-ray shows no acute fracture, a creatinine of 5 which is close to his known baseline and the remainder of his laboratory investigations are nonactionable. Given the need for IV antibiotics and dialysis and nephrology evaluation discussed patient management with Dr. Alfonso at [facility]. He graciously agreed to accept the patient in transfer. Patient will be transferred by ALS. Critical Care Critical Care Time Critical Care Time: No
[2023-12-07 16:48] VITALS: BP 172/99; PULSE 70; RESP 18; O2SAT 99; BMI 23.6
--- NOTE | 2023-12-07 17:01 | PC.NURSE ---
placed call to [facility] for transfer to [place] for infectious disease and nephrology
[2023-12-07] MEDS: VANCOMYCIN/WATER FOR INJ (PEG) 1.75 GM/350 ML PIGGYBACK IV (17:17)
[2023-12-07] MEDS: ACETAMINOPHEN 1,000MG/100ML VIAL 1000 MG IV (17:17)
--- NOTE | 2023-12-07 17:24 | PC.NURSE ---
Elsa SOSA speaking to Dr Alfonso at [place]
--- NOTE | 2023-12-07 17:34 | XR_ITS ---
PROCEDURE INFORMATION: Exam: XR Right Elbow Exam date and time: 12/07/2023 5:35 PM Age: 83 years old Clinical indication: Injury or trauma; Fall; Blunt trauma (contusions or hematomas); Elbow; Right; Additional info: Fall, pain, swelling TECHNIQUE: Imaging protocol: Radiologic exam of the right elbow. Views: 1 or 2 views. COMPARISON: CR XR HAND RT MIN 3V 08/20/2023 9:48 AM FINDINGS: Bones/joints: Small lucency and cortical irregularity of the medial aspect of the ulna at the site of the elbow articulation. Triceps enthesophyte which appears fractionated. Soft tissues: Normal. IMPRESSION: Findings suggest possible medial ulnar avulsion injury , minimally displaced. Cross-sectional evaluation can be obtained if there is continued clinical concern.
--- NOTE | 2023-12-07 17:39 | PC.NURSE ---
XR AT BEDSIDE
[2023-12-07 17:40] LABS: Basophils # 0.1 K/mm3 (0-0.2); Basophils % 0.7 % (0.1-2.0); Eosinophils # 0.1 K/mm3 (0.0-0.4); Eosinophils % 0.8 % (0.1-12.0); Hematocrit 39.7 % (42.0-52.0); Hemoglobin 11.8 g/dL (14.1-18.0); Lymphocytes # 0.8 K/mm3 (0.7-4.5); Lymphocytes % 6.9 % (10-50); Mean Corpuscular HGB Conc 29.7 g/dL (31.8-35.4); Mean Corpuscular Hemoglobin 32.5 pg (27.0-31.2); Mean Corpuscular Volume 109.3 fl (80-94); Mean Platelet Volume 8.3 fl (7.4-10.4); Monocytes # 0.5 K/mm3 (0.1-1.0); Monocytes % 4.2 % (1.7-9.3); Neutrophils # 10.2 K/mm3 (1.8-7.8); Neutrophils % 87.4 % (37.0-80.0); Platelet Count 387 K/mm3 (142-424); Red Blood Count 3.63 M/mm3 (4.60-6.20); Red Cell Distribution Width 16.4 % (11.5-17.5); White Blood Count 11.6 K/mm3 (4.8-10.8)
--- NOTE | 2023-12-07 17:40 | PC.NURSE ---
[facility] transfer center called to give bed assignment [facility] Med/Surg room 121. Call to give report [phone]
[2023-12-07 17:43] LABS: MANUAL DIFFERENTIAL MANUAL DIFFERENTIAL (MANUAL DIFF)
[2023-12-07 17:46] LABS: Chloride 97 mmol/L (98-107); Sodium 138 mmol/L (136-145)
[2023-12-07 17:47] LABS: Potassium 3.6 mmoL/L (3.5-5.1)
[2023-12-07 17:49] VITALS: BP 164/104; PULSE 66; RESP 20; TEMP 36.8; O2SAT 98
[2023-12-07 17:49] LABS: Alanine Aminotransferase 36 U/L (12-78); Alkaline Phosphatase 147 U/L (38-126); Anion Gap 12.6 mEq/L (5-15); Aspartate Amino Transferase 36 U/L (17-59); Blood Urea Nitrogen 47 mg/dl (9-20); Carbon Dioxide 32 mmol/L (22.0-30.0); Creatinine Clearance Estimated 11 mL/min (50-200); Estimated Glomerular Filt Rate 11 ml/min (>60); GFR (African American) 14 ML/MIN (>60)
[2023-12-07 17:50] LABS: Albumin Level 3.2 g/dl (3.5-5.0); Albumin/Globulin Ratio 1.1 (1.1-1.8); Calcium 8.2 mg/dl (8.4-10.2); Glucose 124 mg/dl (74-100); Magnesium 2.3 mg/dl (1.6-2.3); Total Protein,Serum 6.2 g/dl (6.3-8.2)
[2023-12-07 18:17] LABS: Lymphocytes % 6 % (10-50); Macrocytosis 1+; Monocytes % 3 % (2-9); Neutrophils % 89 % (42-76); Platelet Estimate Normal; Total Cells Counted 100
--- NOTE | 2023-12-07 18:17 | PC.NURSE ---
Called report to Beverly SALMERON RN, and completed transfer record, EMS med sheet, and PCS form. EMS called for transport
--- NOTE | 2023-12-16 01:39 | PC.NURSE ---
no growth noted on blood cultures x 5 days. patient was transferred to [facility].
== END 2023-12-07 18:47 | disposition other institution (70) ==
PROVIDERS: Physician Assistant; Emergency Provider Student in an Organized Health Care Education/Training Program; PCP Family Medicine
DX: L03.115 Cellulitis of right lower limb (principal); I89.0 Lymphedema, not elsewhere classified; S40.021A Contusion of right upper arm, initial encounter; N18.6 End stage renal disease; I12.0 Hypertensive chronic kidney disease with stage 5 chronic kidney disease or end stage renal disease; D63.1 Anemia in chronic kidney disease; Z99.2 Dependence on renal dialysis; W19.XXXA Unspecified fall, initial encounter
CPT/HCPCS: 73070; 80053; 83735; 85007; 85025; 87040; 96365; 96366; 96375; 99285; J0131